=== PATIENT | female | born 1940 | race Caucasian/White ===

== ENCOUNTER 2021-02-16 06:58 | Outpatient (REF) | payer MEDICARE, SELFPAY ==
[2021-02-16 11:12] LABS: MANUAL DIFF FLAG NO
[2021-02-16 11:20] LABS: Basophils Absolute Auto 0.1 X10*3/uL (0.0-0.2); Basophils Percent Auto 0.8 % (0-2); Eosinophils Absolute Auto 0.1 X10*3/uL (0.0-0.4); Eosinophils Percent Auto 1.7 % (0-4); Hematocrit 42.1 % (37-47); Hemoglobin 13.6 g/dl (12.0-16.0); Imm Gran Abs Auto 0.03 X10*3/uL (0.00-0.03); Imm Gran Pct Auto 0.4 % (0.0-0.4); Lymphocytes Absolute Auto 1.9 X10*3/uL (1.2-4.9); Mean Corpuscular HGB Conc 32.3 g/dl (31.0-35.0); Mean Corpuscular Hemoglobin 29.2 pg (27.0-33.0); Mean Corpuscular Volume 90.3 fL (80-98); Monocytes Absolute Auto 0.7 X10*3/uL (0.1-1.2); Monocytes Percent Auto 8.4 % (2-11); Neutrophils Absolute Auto 5.6 X10*3/uL (2.0-8.3); Neutrophils Percent Auto 66.7 % (45-73); Platelet Count 401 X10*3/uL (160-400); Red Blood Count 4.66 X10*6/uL (4.20-5.50); White Blood Count 8.4 X10*3/uL (4.8-10.8)
[2021-02-16 12:01] LABS: Alanine Aminotransferase 12 U/L (0-31); Albumin Level 4.3 g/dL (3.5-5.0); Alkaline Phosphatase 90 U/L (39-117); Anion Gap 13 (12-20); Aspartate Amino Transferase 25 U/L (5-31); Bilirubin Total 0.5 mg/dL (0.0-1.0); Blood Urea Nitrogen 13 mg/dL (9-16); Calcium 9.9 mg/dL (8.4-10.2); Carbon Dioxide 28 mmol/L (22-29); Chloride 104 mmol/L (96-108); Cholesterol 225 mg/dL; Estimated Glomerular Filt Rate > 60; Glucose Random 88 mg/dL (60-115); HDL Cholesterol 83 mg/dL; LDL Cholesterol Calculated 125 mg/dl; Potassium 4.4 mmol/L (3.3-5.1); Sodium 141 mmol/L (135-145); Total Protein 6.8 g/dL (6.5-8.0); Triglycerides 85 mg/dL
[2021-02-16 12:23] LABS: Free T4 (Free Thyroxine) 0.98 ng/dL (0.71-1.85); Thyroid Stimulating Hormone 2.82 uIU/mL (0.32-4.0)
[2021-02-16 13:18] LABS: Folate > 20.0 ng/mL (> or = 4.0); Vitamin B12 930 pg/mL (200-900)
== END 2021-02-16 06:59 | disposition home or self-care (01) ==
LOC: HO.HMGCLDS 06:58
PROVIDERS: PCP Internal Medicine; Visit Provider Internal Medicine
DX: I10 Essential (primary) hypertension (principal); E78.00 Pure hypercholesterolemia, unspecified
CPT/HCPCS: 36415; 80053; 80061; 82306; 82607; 82746; 84439; 84443; 85025

== ENCOUNTER 2021-03-18 11:25 | Outpatient (REF) | payer MEDICARE, SELFPAY ==
--- NOTE | ~2021-03-18 | XR_ITS ---
EXAMINATION: XR FEMUR, LEFT CLINICAL INFORMATION: Other specified disorders of bone density COMPARISON: None TECHNIQUE: AP and lateral views of the left femur were obtained. FINDINGS: No displaced fracture. Moderate cartilage space loss in the left hip. Vascular calcifications. XR/XR femur LT 2V IMPRESSION: No fracture. Moderate degenerative change in the left hip. Vascular calcifications.
--- NOTE | ~2021-03-18 | XR_ITS ---
EXAMINATION: XR KNEE, LEFT CLINICAL INFORMATION: Other specified disorders of bone density. COMPARISON: None TECHNIQUE: Two views of the left knee. FINDINGS: No fracture or dislocation. Alignment is normal. There is mild cartilage space loss in the medial compartment. No joint effusion. Vascular calcifications. XR/XR knee LT 2V IMPRESSION: Mild degenerative change in the medial compartment.
== END 2021-03-18 11:26 | disposition home or self-care (01) ==
LOC: HO.XRAY 11:25
PROVIDERS: PCP Internal Medicine; Visit Provider Internal Medicine
DX: M79.652 Pain in left thigh (principal); M85.80 Other specified disorders of bone density and structure, unspecified site
CPT/HCPCS: 73552; 73560

== ENCOUNTER 2021-03-26 10:24 | Outpatient (REF) | payer MEDICARE, SELFPAY ==
--- NOTE | ~2021-03-26 | MM_ITS ---
EXAMINATION: BONE DENSITOMETRY CLINICAL INDICATION: Other specified disorders of bone density and structure. COMPARISON: Baseline BD dated 08/04/2016. TECHNIQUE: Using a [employer] DXA System (software version: 13.1) manufactured by [employer], dual-energy x-ray absorptiometry was performed of the lumbar spine and left hip. The images are of good technical quality. Summary results are attached. FINDINGS: AP SPINE L1-L4: Current: BMD 1.165 g/cm2, Z-score 1.7, T-score -0.1, normal, 3.5% decrease from baseline (<5% change is not significant). Baseline: BMD 1.207 g/cm2. LEFT FEMUR, NECK: Current: BMD 0.817 g/cm2, Z-score 0.6, T-score -1.6, osteopenia. Baseline: BMD 0.831 g/cm2. LEFT FEMUR, TOTAL: Current: BMD 0.905 g/cm2, Z-score 1.2, T-score -0.8, normal, 7.8% decrease from baseline (<5% change is not significant). Baseline: BMD 0.982 g/cm2. IDENTIFIED RISK FACTORS: Height loss, low calcium intake, family history (parental hip fracture), thiazide, menopause. HISTORY OF FRACTURE: None listed. MEDICATIONS: Calcium supplements or multivitamin, vitamin D. MM/XR DEXA axial skeleton IMPRESSION: 1. DIAGNOSIS: Osteopenia based on the lowest T-score value of -1.6 in the femoral neck applying World Health Organization criteria. 2. 10-YEAR FRACTURE RISK PREDICTION, FRAX: Major osteoporotic fracture (clinical spine, forearm, hip or shoulder) 24.6%. Hip fracture 14.2%. 3. Treatment Recommendations: NOF guidelines recommend consideration for treatment in postmenopausal women and men age 50 and older presenting with the following: -A hip or vertebral (clinical or morphometric) fracture. -T-score less than or equal to -2.5 at the femoral neck or spine after appropriate evaluation to exclude secondary causes. -Low bone mass at the hip or spine and a 10-year fracture probability by FRAX of greater than or equal to 3% for hip fracture or greater than or equal to 20% for major osteoporotic fracture based on the [place] adapted WHO algorithm. 4. Other Recommendations: All treatment decisions require clinical judgment and consideration of individual patient factors, including patient preferences, comorbidities, previous drug use, risk factors not captured in the FRAX model (e.g. frailty, falls, vitamin D deficiency, increased bone turnover, interval significant decline in bone density) and possible under or overestimation of fracture risk by FRAX. Additional medical evaluation for secondary cause of low bone mineral density may be appropriate. FUTURE SCAN RECOMMENDATION: People with diagnosed cases of osteoporosis or at high risk for fracture should have regular bone mineral density tests. For patients eligible for Medicare, routine testing is allowed once every 2 years. The testing frequency can be increased to one year for patients who have rapidly progressing disease, those who are receiving or discontinuing medical therapy to restore bone mass, or have additional risk factors.
== END 2021-03-26 10:25 | disposition home or self-care (01) ==
LOC: HO.MAMMO 10:24
PROVIDERS: PCP Internal Medicine; Visit Provider Internal Medicine
DX: Z13.820 Encounter for screening for osteoporosis (principal); M85.80 Other specified disorders of bone density and structure, unspecified site; Z78.0 Asymptomatic menopausal state; Z79.899 Other long term (current) drug therapy
CPT/HCPCS: 77080

== ENCOUNTER 2021-03-29 09:39 | Outpatient (REF) | payer MEDICARE, SELFPAY ==
[2021-03-29 11:25] LABS: Glucose Urine UA NEG (NEG); Leukocyte Esterase Urine 3+ (NEG); Nitrite Urine POS (NEG); UACC Culture Trigger YES; Urine Blood TRACE (NEG); Urine Ketones NEG (NEG); Urine Protein TRACE MG/DL (NEG-TRACE)
[2021-03-29 11:27] LABS: Appearance Urine CLOUDY; Color Urine YELLOW
[2021-03-29 11:55] LABS: Bacteria Urine 2+ /LPF; Squamous Epithelial Cell Urine 2+ /LPF; WBC Urine TNTC /HPF (0-4)
== END 2021-03-29 09:40 | disposition home or self-care (01) ==
LOC: HO.HMGCLDS 09:39
PROVIDERS: PCP Internal Medicine; Visit Provider Internal Medicine
DX: R30.0 Dysuria (principal)
CPT/HCPCS: 81001; 81003; 87086; 87088; 87186

== ENCOUNTER 2021-10-16 15:19 | Emergency (ER) | payer MEDICARE, SELFPAY ==
--- NOTE | ~2021-10-16 | XR_ITS ---
EXAMINATION: XR CHEST CLINICAL INFORMATION: Shortness of breath COMPARISON: April 03, 2018 TECHNIQUE: AP portable view of the chest was obtained. FINDINGS: There is interstitial prominence present at the lung bases bilaterally with curly B lines being seen. No significant perihilar disease is noted. There is question of a small left pleural effusion. No definite redistribution of vasculature to the upper lobes appreciated. No pneumothorax. Heart normal size. XR/XR chest 1V IMPRESSION: Bilateral lung base interstitial disease. Finding could be related to resolving pulmonary edema however infectious etiology would also be included in diagnosis. Infectious etiology could also be considered.
[2021-10-16 15:53] VITALS: BP 134/81; PULSE 132; RESP 19; TEMP 37.2; O2SAT 96; BMI 25.7
--- NOTE | 2021-10-16 16:15 | ECG_ITS ---
Test Reason : CHEST PAIN Blood Pressure : / mmHG Vent. Rate : 131 BPM Atrial Rate : 131 BPM P-R Int : 144 ms QRS Dur : 080 ms QT Int : 302 ms P-R-T Axes : 079 001 121 degrees QTc Int : 445 ms Sinus tachycardia Septal infarct , new Inferior infarct , possibly acute ACUTE TN / STEMI Consider right ventricular involvement in acute inferior infarct Abnormal ECG When compared with ECG of 13-JUN-2018 14:09, Premature ventricular complexes are no longer Present Vent. rate has increased BY 47 BPM Acute Septal infarct is now Present Inferior infarct is now Present Referred By: Cyrus Mejia Electronically Signed By:KRISTINE HICKEY
--- NOTE | 2021-10-16 16:36 | ED.GENADULT ---
HPI - General Adult General Chief complaint: General Medical Stated complaint: SOB Time Seen by Provider: 10/16/21 16:14 Source: patient Mode of arrival: ambulatory Limitations: no limitations History of Present Illness HPI narrative: 81 years old female came in for evaluation of shortness of breath. SOB started 3-4 days ago, described as constant, moderate in severity, shortness of breath triggered with any minimal exertion, nothing completely relieve the symptoms but it gets better with rest, patient declined chest pain, complain of bilateral lower extremities swelling, declined any recent travel, no prolonged expiration, no orthopnea or paroxysmal nocturnal dyspnea, patient declined fever or chills, patient is vaccinated with 3 doses of COVID vaccination. No sick contact. Never had similar symptoms in the past. No lower extremity swelling or tenderness. Past medical history is significant for hypertension primary doctor just decreased dose of blood pressure medication. Past medical history is significant for hypertension, hypercholesterolemia, and osteopenia. Patient was released recently treated by PCP for anxiety/grief after she lost her sister recently. Related Data Home Medications Medication Instructions Recorded Confirmed cholecalciferol (vitamin D3) 10 10 mcg PO DAILY 09/08/20 06/21/21 mcg (400 unit) capsule fexofenadine 180 mg tablet 180 mg PO DAILY 09/08/20 06/21/21 (Bianca Allergy) flaxseed ea PO 09/08/20 06/21/21 glucosamine HCl 750 mg tablet 750 mg PO DAILY 09/08/20 06/21/21 magnesium 100 mg tablet mg PO 09/08/20 06/21/21 multivitamin 1 tab PO DAILY 09/08/20 06/21/21 Previous Rx's Medication Instructions Recorded hydrochlorothiazide 12.5 mg capsule 12.5 mg PO DAILY #90 cap 05/31/21 amlodipine 2.5 mg tablet 2.5 mg PO DAILY #90 cap 07/27/21 fluticasone propionate 50 2 spray INTRANASAL DAILY #16 g 08/16/21 mcg/actuation nasal spray,suspension (Allergy Relief (fluticasone)) ezetimibe 10 mg tablet 10 mg PO DAILY #90 tab 09/21/21 alprazolam 0.25 mg tablet 0.25 mg PO DAILY PRN 30 Days #14 09/28/21 tab hydrocortisone 2.5 % topical cream 1 appl NH BID-QID PRN #30 g 09/28/21 with perineal applicator (Proctosol HC) Allergies Allergy/AdvReac Type Severity Reaction Status Date / Time atorvastatin [Lipitor] Allergy Unknown Unknown Verified 09/28/21 09:46 lovastatin Allergy Unknown Unknown Verified 09/28/21 09:46 pneumococcal vaccine Allergy Unknown Unknown Verified 09/28/21 09:46 pravastatin Allergy Unknown Unknown Verified 09/28/21 09:46 rosuvastatin [Crestor] Allergy Unknown Unknown Verified 09/28/21 09:46 simvastatin Allergy Unknown unknown Verified 09/28/21 09:46 sertraline AdvReac Intermediate sweaty Verified 10/06/21 14:59 Review of Systems Review of Systems: All other systems are reviewed and are negative Constitutional: Reports as per HPI and Reports no additional constitutional complaints Eyes: Reports as per HPI and Reports no additional eye complaints Reports system reviewed and no additional complaints, except as documented Cardiovascular: Reports as per HPI and Reports no additional cardiovascular complaints Respiratory: Reports as per HPI and Reports no additional respiratory complaints Gastrointestinal: Reports as per HPI and Reports no additional gastrointestinal complaints Genitourinary: Reports no additional female genitourinary complaints Musculoskeletal: Reports no additional musculoskeletal complaints Skin/Breast: Reports system reviewed and no additional complaints, except as docu Psychiatric: Reports no additional psychiatric complaints Endocrine: Reports no additional endocrine complaints Hematologic/Lymphatic: Reports no additional hematologic/lymphatic complaints Allergic/Immunologic: Reports no additional allergic/immunologic complaints Reports system reviewed and no additional complaints, except as documented and Reports Abnormal speech present [facility] Past Medical History Medical History Diverticulosis Hemorrhoids Hypercholesterolemia Hypertension Overweight (BMI 25.0-29.9) Thyroid nodule Surgical History History of cataract surgery History of colonoscopy History of surgery Family History Family History Father Hypertension Stroke CVD (cardiovascular disease) Mother Hypertension Stroke Social History Social History [facility]: [facility] [place] Alcohol intake: current Alcohol intake frequency: a few times a week Alcohol type: wine Patient Tobacco Use Status: Former Tobacco user e-Cigarette/Vaping Use: Never Used Second Hand Smoke Exposure: No Use of substances other than those prescribed or required for medical reasons: No Advance Directives: No Advance Directives Information Provided: No service: No Current occupational status: retired Physical Exam Vital Signs: Vital Signs: Last Vital Signs Temp 99 F 10/16/21 15:53 Pulse 136 H 10/16/21 17:21 Resp 25 H 10/16/21 17:21 BP 173/80 H 10/16/21 17:21 Pulse Ox 98 10/16/21 17:21 BMI result Body Mass Index 29.4 Vital signs have been reviewed as appeared to be correct. Blood pressure normal. Heart rate elevated. Respiration rate normal. Temperature normal. Oxygen saturation normal. Appearance: Alert. Oriented X3. No acute distress. Head: Normal external exam. Normocephalic. Atraumatic. No Moyer signs noted. No raccoon eyes noted Eyes: PERRLA. EOMI. Conjunctiva and sclera normal. Eyelids normal. ENT: TM's Normal. Pharynx normal. Uvula midline. Moist mucous membranes. No trismus noted. No drooling noted. No muffled voice noted. Neck: Normal inspection. Neck supple. FROM. No adenopathy. Thyroid Normal. No meningeal signs. No neck mass noted. CVS: Normal heart rate and rhythm. Heart sound normal. No murmurs noted. Pulses normal throughout. Respiratory: No respiratory distress. Painless inspiration. Breath sounds normal. Bilateral basilar rales, no wheezings. Abdomen: Soft and nontender. Bowel sounds normal in all 4 quadrants. No distention noted. No organomegaly noted. No visible injury noted. Back: No CVA tenderness. Full range of motion noted. Skin: Skin warm and dry. Normal skin color. Normal skin turgor. No rashes/lesions/lacerations noted. Extremities: +2 lower extremity edema. Extremities exhibit normal range of motion. Extremities nontender. Neuro: Oriented X 3. Cranial nerve exam: II-XII are grossly intact No motor deficit. No sensory deficit. Reflexes normal. Course Course Course Narrative: Assessment and plan. 81-year-old female came in for evaluation of shortness of breath for 3-4 days, patient declined chest pain. EKG revealed acute MRI with Q-wave, the EKG was reviewed with Dr. Jazmin Morales shore working supervisor at [facility] who reviewed the EKG thing that the patient had an acute [place] 3-4 days ago with Q-wave and now she is presenting with early CHF. Recommended to transfer the patient to CCU at [facility] start heparin, aspirin, and Lasix. And recommended no Brilinta, no Plavix, no beta-rubén. And patient will be transferred to CCU at [facility]. Reevaluation(s) Reevaluation #1: EMS at the bedside to transfer to CCU at [facility], patient is not going to cardiac catheterization as per Dr. Wu, will be evaluated 1st at CCU. Time: 17:42 Medical Decision Making Medical Records Medical records reviewed: Yes I reviewed the patient's medical records. Lab Data Lab results reviewed: Yes I reviewed the patient's lab results. Result diagrams: 10/16/21 16:57 10/16/21 16:56 Labs: Lab Results 10/16/21 10/16/21 10/16/21 Range/Units 16:55 16:55 16:56 WBC (4.8-10.8) X10*3/uL RBC (4.20-5.50) X10*6/uL Hgb (12.0-16.0) g/dl Hct (37.0-47.0) % MCV (80.0-98.0) fL MCH (27.0-33.0) pg MCHC (31.0-35.0) g/dl RDW (11.0-16.0) % Plt Count (160-400) X10*3/uL MPV (9.4-12.3) fL Immature Gran % (Auto) (0.0-0.4) % Neut % (Auto) (45-73) % Lymph % (Auto) (20-40) % [place] % (Auto) (2-11) % Eos % (Auto) (0-4) % Baso % (Auto) (0-2) % Lymph # (Auto) (1.2-4.9) X10*3/uL [place] # (Auto) (0.1-1.2) X10*3/uL Eos # (Auto) (0.0-0.4) X10*3/uL Baso # (Auto) (0.0-0.2) X10*3/uL Abs Immat Gran (auto) (0.00-0.03) X10*3/uL Absolute Neuts (auto) (2.0-8.3) x10*3/uL Absolute Nucleated RBC (0.0-0.012) X10*3/uL Nucleated RBC % (auto) (0.0-0.2) /100WBC PT 17.7 H (9.9-13.0) SEC INR 1.5 H (0.9-1.1) APTT 28.8 (24.1-38.0) SEC D-Dimer High Sensitivty 647 NG/ML Sodium 133 L (135-145) mmol/L Potassium 4.9 (3.3-5.1) mmol/L Chloride 100 (96-108) mmol/L Carbon Dioxide 22 (22-29) mmol/L Anion Gap 16 (12-20) BUN 14 (9-16) mg/dL Creatinine 0.72 (0.5-1.4) mg/dL Estim Creat Clear Calc 58.2 Estimated GFR > 60 Random Glucose 138 H (60-115) mg/dL Lactic Acid (0.5-2.0) mmol/L Calcium 9.6 (8.4-10.2) mg/dL Total Bilirubin 0.6 (0.0-1.0) mg/dL Direct Bilirubin 0.3 (0.0-0.5) mg/dL AST 161 H (5-31) U/L ALT 244 H (0-31) U/L Alkaline Phosphatase 227 H D (39-117) U/L Troponin I High Sens 3114.1 H* (<3.5-17.0) ng/L B-Natriuretic Peptide 2130 H (<100) pg/mL Total Protein 6.4 L (6.5-8.0) g/dL Albumin 3.9 (3.5-5.0) g/dL Lipase 16 (8-78) U/L COVID-19 ([facility]) (Negative) COVID-19 Clin Com Influenza Type A (PCR) (Negative) Influenza Type B (PCR) (Negative) RSV RNA Qual (PCR) (Negative) SARS-CoV-2 RNA (RT-PCR) (Negative) 10/16/21 10/16/21 10/16/21 Range/Units 16:56 16:57 16:58 WBC 15.6 H (4.8-10.8) X10*3/uL RBC 3.83 L (4.20-5.50) X10*6/uL Hgb 11.4 L (12.0-16.0) g/dl Hct 34.8 L (37.0-47.0) % MCV 90.9 (80.0-98.0) fL MCH 29.8 (27.0-33.0) pg MCHC 32.8 (31.0-35.0) g/dl RDW 13.5 (11.0-16.0) % Plt Count 522 H (160-400) X10*3/uL MPV 10.0 (9.4-12.3) fL Immature Gran % (Auto) 0.6 H (0.0-0.4) % Neut % (Auto) 87.1 H (45-73) % Lymph % (Auto) 5.2 L (20-40) % [place] % (Auto) 6.9 (2-11) % Eos % (Auto) 0.0 (0-4) % Baso % (Auto) 0.2 (0-2) % Lymph # (Auto) 0.8 L (1.2-4.9) X10*3/uL [place] # (Auto) 1.1 (0.1-1.2) X10*3/uL Eos # (Auto) 0.0 (0.0-0.4) X10*3/uL Baso # (Auto) 0.0 (0.0-0.2) X10*3/uL Abs Immat Gran (auto) 0.09 H (0.00-0.03) X10*3/uL Absolute Neuts (auto) 13.6 H (2.0-8.3) x10*3/uL Absolute Nucleated RBC 0.000 (0.0-0.012) X10*3/uL Nucleated RBC % (auto) 0.0 (0.0-0.2) /100WBC PT (9.9-13.0) SEC INR (0.9-1.1) APTT (24.1-38.0) SEC D-Dimer High Sensitivty NG/ML Sodium (135-145) mmol/L Potassium (3.3-5.1) mmol/L Chloride (96-108) mmol/L Carbon Dioxide (22-29) mmol/L Anion Gap (12-20) BUN (9-16) mg/dL Creatinine (0.5-1.4) mg/dL Estim Creat Clear Calc Estimated GFR Random Glucose (60-115) mg/dL Lactic Acid 1.6 (0.5-2.0) mmol/L Calcium (8.4-10.2) mg/dL Total Bilirubin (0.0-1.0) mg/dL Direct Bilirubin (0.0-0.5) mg/dL AST (5-31) U/L ALT (0-31) U/L Alkaline Phosphatase (39-117) U/L Troponin I High Sens (<3.5-17.0) ng/L B-Natriuretic Peptide (<100) pg/mL Total Protein (6.5-8.0) g/dL Albumin (3.5-5.0) g/dL Lipase (8-78) U/L COVID-19 ([facility]) (Negative) COVID-19 Clin Com Influenza Type A (PCR) NEGATIVE (Negative) Influenza Type B (PCR) NEGATIVE (Negative) RSV RNA Qual (PCR) NEGATIVE (Negative) SARS-CoV-2 RNA (RT-PCR) NEGATIVE (Negative) 10/16/21 Range/Units 17:00 WBC (4.8-10.8) X10*3/uL RBC (4.20-5.50) X10*6/uL Hgb (12.0-16.0) g/dl Hct (37.0-47.0) % MCV (80.0-98.0) fL MCH (27.0-33.0) pg MCHC (31.0-35.0) g/dl RDW (11.0-16.0) % Plt Count (160-400) X10*3/uL MPV (9.4-12.3) fL Immature Gran % (Auto) (0.0-0.4) % Neut % (Auto) (45-73) % Lymph % (Auto) (20-40) % [place] % (Auto) (2-11) % Eos % (Auto) (0-4) % Baso % (Auto) (0-2) % Lymph # (Auto) (1.2-4.9) X10*3/uL [place] # (Auto) (0.1-1.2) X10*3/uL Eos # (Auto) (0.0-0.4) X10*3/uL Baso # (Auto) (0.0-0.2) X10*3/uL Abs Immat Gran (auto) (0.00-0.03) X10*3/uL Absolute Neuts (auto) (2.0-8.3) x10*3/uL Absolute Nucleated RBC (0.0-0.012) X10*3/uL Nucleated RBC % (auto) (0.0-0.2) /100WBC PT (9.9-13.0) SEC INR (0.9-1.1) APTT (24.1-38.0) SEC D-Dimer High Sensitivty NG/ML Sodium (135-145) mmol/L Potassium (3.3-5.1) mmol/L Chloride (96-108) mmol/L Carbon Dioxide (22-29) mmol/L Anion Gap (12-20) BUN (9-16) mg/dL Creatinine (0.5-1.4) mg/dL Estim Creat Clear Calc Estimated GFR Random Glucose (60-115) mg/dL Lactic Acid (0.5-2.0) mmol/L Calcium (8.4-10.2) mg/dL Total Bilirubin (0.0-1.0) mg/dL Direct Bilirubin (0.0-0.5) mg/dL AST (5-31) U/L ALT (0-31) U/L Alkaline Phosphatase (39-117) U/L Troponin I High Sens (<3.5-17.0) ng/L B-Natriuretic Peptide (<100) pg/mL Total Protein (6.5-8.0) g/dL Albumin (3.5-5.0) g/dL Lipase (8-78) U/L COVID-19 ([facility]) Negative (Negative) COVID-19 Clin Com See Note Influenza Type A (PCR) (Negative) Influenza Type B (PCR) (Negative) RSV RNA Qual (PCR) (Negative) SARS-CoV-2 RNA (RT-PCR) (Negative) Imaging Data Chest x-ray: Radiologist's impression: Bilateral lung base interstitial disease. Finding could be related to resolving pulmonary edema however infectious etiology would also be included in diagnosis. Infectious etiology could also be considered. ? ECG Data Attestation: I personally reviewed and interpreted this ECG as follows: Interpretation: Sinus tachycardia at 131 beats per minute, normal intervals, [address]-elevation in leadIII, aVF, Q-wave in lead III,aVF with reciprocal ST depression in V3 and V4, V5. Critical Care Time Critical Care Time Critical Care Time: Yes Total Critical Care Time: 60 Attestation: I spent 60 minutes providing critical care service to the patient, this including time spent at the bedside to evaluate the patient, reassess the patient, monitoring vital signs, review labs, and radiographic studies, counseling the patient/family, discussing the case with consultants, disposition the patient. Discharge Plan Discharge Clinical Impression: Acute myocardial infarction, Acute congestive heart failure Patient Disposition: [facility] Transfer Details: CCU at [facility] Prescriptions: No Action hydrochlorothiazide 12.5 mg capsule 12.5 mg PO DAILY Qty: 90 RF: 3 amlodipine 2.5 mg tablet 2.5 mg PO DAILY Qty: 90 RF: 2 fluticasone propionate [Allergy Relief (fluticasone)] 50 mcg/actuation spray,suspension 2 spray intranasal DAILY Qty: 16 RF: 5 ezetimibe 10 mg tablet 10 mg PO DAILY Qty: 90 RF: 3 glucosamine HCl 750 mg tablet 750 mg PO DAILY RF: 0 cholecalciferol (vitamin D3) 10 mcg (400 unit) capsule 10 mcg PO DAILY RF: 0 flaxseed Powder PO RF: 0 multivitamin Tablet 1 tab PO DAILY RF: 0 magnesium 100 mg tablet PO RF: 0 fexofenadine [Bianca Allergy] 180 mg tablet 180 mg PO DAILY RF: 0 alprazolam 0.25 mg tablet 0.25 mg PO DAILY PRN (Reason: anxiety) 30 Days Qty: 14 RF: 0 hydrocortisone [Proctosol HC] 2.5 % cream with perineal applicator 1 appl NH BID-QID PRN (Reason: hemorrhoids) Qty: 30 RF: 1
[2021-10-16 16:58] VITALS: PULSE 134; RESP 30
[2021-10-16] MEDS: Aspirin Enteric Coated 81 MG TABLET.DR PO (17:03)
[2021-10-16 17:05] LABS: MANUAL DIFF FLAG NO
[2021-10-16] MEDS: Furosemide 40 MG/4 ML VIAL IVPUSH (17:05)
[2021-10-16 17:08] LABS: Basophils Percent Auto 0.2 % (0-2); Hematocrit 34.8 % (37.0-47.0); Hemoglobin 11.4 g/dl (12.0-16.0); Imm Gran Abs Auto 0.09 X10*3/uL (0.00-0.03); Imm Gran Pct Auto 0.6 % (0.0-0.4); Lymphocytes Absolute Auto 0.8 X10*3/uL (1.2-4.9); Lymphocytes Percent Auto 5.2 % (20-40); Mean Corpuscular HGB Conc 32.8 g/dl (31.0-35.0); Mean Corpuscular Hemoglobin 29.8 pg (27.0-33.0); Mean Corpuscular Volume 90.9 fL (80.0-98.0); Monocytes Absolute Auto 1.1 X10*3/uL (0.1-1.2); Monocytes Percent Auto 6.9 % (2-11); Neutrophils Absolute Auto 13.6 x10*3/uL (2.0-8.3); Neutrophils Percent Auto 87.1 % (45-73); Platelet Count 522 X10*3/uL (160-400); Red Blood Count 3.83 X10*6/uL (4.20-5.50); Red Cell Distribution Width 13.5 % (11.0-16.0); White Blood Count 15.6 X10*3/uL (4.8-10.8)
[2021-10-16] MEDS: Heparin Sodium,Porcine 5,000 UNIT/ML VIAL 3800 UNIT IVPUSH (17:11)
[2021-10-16 17:12] VITALS: BMI 29.4
[2021-10-16 17:15] LABS: INTERNATIONAL NORM RATIO 1.5 (0.9-1.1); Prothrombin Time 17.7 SEC (9.9-13.0)
[2021-10-16 17:17] LABS: D Dimer High Sensitivity 647 NG/ML; Partial Thromboplastin Time 28.8 SEC (24.1-38.0)
[2021-10-16 17:20] LABS: Lactic Acid 1.6 mmol/L (0.5-2.0)
[2021-10-16] MEDS: Heparin Sodium,Porcine/1/2NS 25,000 UNIT/250 ML IV.SOLN 8.76 UNIT IVCONT (17:20)
[2021-10-16 17:21] VITALS: BP 173/80; PULSE 136; RESP 25; O2SAT 98
[2021-10-16 17:21] LABS: COVID-19 Test Negative (Negative)
[2021-10-16 17:30] LABS: Alanine Aminotransferase 244 U/L (0-31); Albumin Level 3.9 g/dL (3.5-5.0); Alkaline Phosphatase 227 U/L (39-117); Anion Gap 16 (12-20); Aspartate Amino Transferase 161 U/L (5-31); Bilirubin Direct 0.3 mg/dL (0.0-0.5); Bilirubin Total 0.6 mg/dL (0.0-1.0); Blood Urea Nitrogen 14 mg/dL (9-16); Calcium 9.6 mg/dL (8.4-10.2); Carbon Dioxide 22 mmol/L (22-29); Chloride 100 mmol/L (96-108); Creatinine Clr Calc Pharmacy 58.2; Estimated Glomerular Filt Rate > 60; Glucose Random 138 mg/dL (60-115); Lipase 16 U/L (8-78); Potassium 4.9 mmol/L (3.3-5.1); Sodium 133 mmol/L (135-145); Total Protein 6.4 g/dL (6.5-8.0)
[2021-10-16 17:32] LABS: B Type Natriuretic Peptide 2130 pg/mL (<100)
[2021-10-16 17:45] LABS: Influenza A PCR NEGATIVE (Negative); Influenza B PCR NEGATIVE (Negative); Resp Syncy Virus RNA Qual PCR NEGATIVE (Negative); SARS COV2 PCR INHOUSE NEGATIVE (Negative)
--- NOTE | 2021-10-16 18:02 | PC.NURSE ---
ems arrival at 1740- pt loaded on stretcher and heading out of facility at 1750
== END 2021-10-16 17:50 | disposition short-term general hospital (02) ==
PROVIDERS: Emergency Provider Emergency Medicine; PCP Internal Medicine
DX: I21.9 Acute myocardial infarction, unspecified (principal); I11.0 Hypertensive heart disease with heart failure; I50.9 Heart failure, unspecified; Z20.822 Contact with and (suspected) exposure to COVID-19
CPT/HCPCS: 0241U; 36415; 71045; 80048; 80076; 83605; 83690; 83880; 84484; 85025; 85379; 85610; 85730; 87040; 87635; 93005; 96374; 96375; 99285; 99291; J1940

== ENCOUNTER → 2021-11-11 12:32 | Outpatient (BNVA) | payer MEDICARE, SELFPAY | PROVIDERS: PCP Internal Medicine; Referring Provider Internal Medicine; Visit Provider Internal Medicine | DX: I25.10 Atherosclerotic heart disease of native coronary artery without angina pectoris (principal); I25.5 Ischemic cardiomyopathy; I48.0 Paroxysmal atrial fibrillation; I34.0 Nonrheumatic mitral (valve) insufficiency; R79.89 Other specified abnormal findings of blood chemistry | CPT/HCPCS: 93005; 99202 ==

== ENCOUNTER → 2021-12-06 12:47 | Outpatient (REF) | payer MEDICARE, SELFPAY ==
--- NOTE | 2021-12-06 12:50 | CA_ITS ---
Transthoracic Echocardiogram Patient (Last, First, Middle): Jocelynn Farr, Gender: Female Date of : 1940 Age: 81 Procedure Date: 12/06/2021 Procedure Type: Transthoracic Echocardiogram Location: OP Height: 157.48 cm Weight: 58.97 kg BSA: 1.59 m2 Heart Rate: bpm BP: 132 / 80 mmHg Respiratory Care Instructor: CULLEN Kebede MD: Davi Grande MD Car Packer: Kana Garcia MD Symptoms: I21.3 - ST elevation (STEMI) myocardial infarction of uns... Study Quality: Good ECG Rhythm: Sinus with extra beats Conclusions: - 1. Nili-za-xowjociv LV systolic dysfunction with regional wall motion abnormality suggestive of prior coronary artery disease and myocardial infarction with pseudonormal filling pattern 2. Mildly dilated left atrium 3. Moderate mitral regurgitation 4. Mildly elevated right ventricular systolic pressure 5. Moderate pericardial effusion Findings Left Ventricle Normal left ventricular cavity size. There is normal left ventricular wall thickness. The left ventricular systolic function is mild to moderately decreased. The visually estimated ejection fraction is between 40-45%. Spectral Doppler is indicative of a pseudonormal filling pattern. E/E prime ratio is between 8 and 15 consistent with indeterminate filling pressures. Wall Motion Rest Echo Findings The mid inferolateral segment is hypokinetic. The inferoseptal wall, inferior wall, and basal inferolateral segment are akinetic. All other scored wall segments showed normal motion. Right Ventricle Normal right ventricular cavity size and systolic function. Atria The left atrium is mildly dilated. There is no evidence of interatrial shunt. The right atrium is likely dilated. Aortic Valve There is mild calcification of the aortic valve. There is no aortic valve stenosis. There is mild aortic valve regurgitation. Mitral Valve There is mild anterior and moderate posterior mitral leaflet thickening. The posterior mitral leaflet has restricted mobility. There is mild mitral annular calcification. There is moderate mitral valve regurgitation. There is no mitral valve stenosis. Pulmonic Valve The pulmonic valve is likely normal. Tricuspid Valve Normal tricuspid valve structure. There is mild tricuspid valve regurgitation. Normal right atrial pressure. Mild pulmonary hypertension is present. Great Vessels All visible segments of the aorta are normal in size. The pulmonary artery was not well visualized. Venous The inferior vena cava is normal in size and collapses greater than 50% with inspiration. Pericardium/Pleural There is a moderate circumferential pericardial effusion. Prior Study Comparison No prior study available for comparison. Measurements 2D Linear Measurements IVSd: 1.00 0.6-0.9/0.6-1.0 cm LVIDd: 5.28 3.9-5.3/4.2-5.9 cm LVIDd Index: 3.32 2.4-3.2/2.2-3.1 cm/m2 LVIDs: 4.76 2.0-3.6 cm LVPWd: 0.87 0.7-1.1 cm Ao Root: 2.90 2.1-3.5 cm LA Diam: 3.60 2.7-3.8/3.0-4.0 cm LAIDs Index: 2.26 1.5-2.3 cm/m2 LV Mass: 227.06 67-162/88-224 g LV Mass Index: 142.81 43-95/49-115 g/m2 LVOT Diam: 2.00 3.0+(-)1.3 cm 2D Systolic Function EF 4C: 48.30 >55% EF 2C: 54.90 >55% EF BiP: 54.10 >55% Mitral Valve MV Pk E: 1.14 MV PK A: 0.91 MV Decel Time: 136.00 E/A: 1.30 E'Lateral: 7.18 E'Medial: 6.53 E/E' Med: 17.50 E/E' Lat: 15.90 PHT: 40.00 MVA PHT: 5.50 Decel Mchenry: 8.40 MR Vol - PW Dopp: 52.80 MR VTI: 1.76 MR ERO: 30.00 MR Alias Noah: 0.40 MR RAD: 0.80 Aortic Valve AoV Pk Noah: 1.13 AoV Mn Noah: 0.81 AoV VTI: 0.27 AoV Pk Grad: 5.00 Aov Mn Grad: 3.00 AFUA Cont.VTI: 2.04 LVOT LVOT Pk Noah: 0.70 LVOT Mn Noah: 0.46 LVOT VTI: 0.17 LVOT Pk Grad: 2.00 LVOT Mn Grad: 1.00 LVOT Diam: 2.00 LVOT Area: 3.14 Diastolic Function MV Pk E: 1.14 MV Pk A: 0.91 E/A: 1.30 E'Medial: 6.53 E/E' Med: 17.50 E' Laterial: 7.18 E/E' Lat: 15.90 Right Ventricle TAPSE (mm): 21.00 TVS' Noah: 11.00 Tricuspid Valve TR Pk Noah: 3.09 TR Pk Grad: 38.00 RA Press: 3.00 RVSP: 41.00 Great Vessels Aorta Ao Root-2D: 2.90 2.0-3.7 cm Ao Asc: 3.20 2.1-3.4 cm Updated in Other Vendor System with Status of Final Kana Garcia MD electronically signed on 12/06/2021 4:03:03 PM with status of Final
== END ==
LOC: HO.CARD 12:47
PROVIDERS: PCP Internal Medicine; Visit Provider Internal Medicine
DX: I21.3 ST elevation (STEMI) myocardial infarction of unspecified site (principal)
CPT/HCPCS: 93306

== ENCOUNTER → 2021-12-15 13:34 | Outpatient (BNVA) | payer MEDICARE, SELFPAY ==
[2021-12-01 13:15] VITALS: BP 128/62; BP 142/70
== END ==
PROVIDERS: PCP Internal Medicine; Referring Provider Internal Medicine; Visit Provider Internal Medicine
DX: I25.5 Ischemic cardiomyopathy (principal); I25.10 Atherosclerotic heart disease of native coronary artery without angina pectoris; I34.0 Nonrheumatic mitral (valve) insufficiency; I48.0 Paroxysmal atrial fibrillation; I10 Essential (primary) hypertension; E78.5 Hyperlipidemia, unspecified; E78.00 Pure hypercholesterolemia, unspecified; R79.89 Other specified abnormal findings of blood chemistry; Z87.891 Personal history of nicotine dependence; Z98.890 Other specified postprocedural states; Z88.7 Allergy status to serum and vaccine; Z88.8 Allergy status to other drugs, medicaments and biological substances; Z79.899 Other long term (current) drug therapy
CPT/HCPCS: 99212

== ENCOUNTER 2021-12-27 11:12 | Outpatient (REF) | payer MEDICARE, SELFPAY ==
[2021-12-01 13:15] VITALS: BP 128/62; BP 142/70
[2021-12-27 14:16] LABS: Anion Gap 12 (12-20); Blood Urea Nitrogen 18 mg/dL (9-16); Calcium 9.8 mg/dL (8.4-10.2); Carbon Dioxide 29 mmol/L (22-29); Chloride 101 mmol/L (96-108); Estimated Glomerular Filt Rate > 60; Glucose Random 94 mg/dL (60-115); Potassium 4.4 mmol/L (3.3-5.1); Sodium 138 mmol/L (135-145)
== END 2021-12-27 11:13 | disposition home or self-care (01) ==
LOC: HO.HMGCLDS 11:12
PROVIDERS: Visit Provider Internal Medicine
DX: I25.5 Ischemic cardiomyopathy (principal)
CPT/HCPCS: 36415; 80048

== ENCOUNTER 2022-02-15 07:12 | Outpatient (REF) | payer MEDICARE, SELFPAY ==
[2021-12-01 13:15] VITALS: BP 128/62; BP 142/70
[2022-01-25 08:27] VITALS: BP 104/48; BMI 24.1
[2022-02-15 11:38] LABS: MANUAL DIFF FLAG NO
[2022-02-15 11:47] LABS: Basophils Absolute Auto 0.1 X10*3/uL (0.0-0.2); Eosinophils Absolute Auto 0.1 X10*3/uL (0.0-0.4); Eosinophils Percent Auto 1.5 % (0-4); Hematocrit 36.8 % (37.0-47.0); Hemoglobin 11.6 g/dl (12.0-16.0); Imm Gran Abs Auto 0.02 X10*3/uL (0.00-0.03); Imm Gran Pct Auto 0.3 % (0.0-0.4); Immature Retic Fraction 7.6 % (3.0-15.9); Lymphocytes Absolute Auto 1.2 X10*3/uL (1.2-4.9); Lymphocytes Percent Auto 15.8 % (20-40); Mean Corpuscular HGB Conc 31.5 g/dl (31.0-35.0); Mean Corpuscular Hemoglobin 27.7 pg (27.0-33.0); Mean Corpuscular Volume 87.8 fL (80.0-98.0); Monocytes Absolute Auto 0.7 X10*3/uL (0.1-1.2); Monocytes Percent Auto 9.9 % (2-11); Neutrophils Absolute Auto 5.2 x10*3/uL (2.0-8.3); Neutrophils Percent Auto 71.5 % (45-73); Platelet Count 269 X10*3/uL (160-400); Red Blood Count 4.19 X10*6/uL (4.20-5.50); Red Cell Distribution Width 14.9 % (11.0-16.0); Retic HGB Equivalent 32.8 pg (30.0-35.0); Reticulocytes Absolute 0.041 X10*6/uL (0.026-0.095); White Blood Count 7.3 X10*3/uL (4.8-10.8)
[2022-02-15 12:07] LABS: Alanine Aminotransferase 43 U/L (0-31); Albumin Level 4.1 g/dL (3.5-5.0); Alkaline Phosphatase 85 U/L (39-117); Anion Gap 10 (12-20); Aspartate Amino Transferase 44 U/L (5-31); Bilirubin Total 0.4 mg/dL (0.0-1.0); Blood Urea Nitrogen 19 mg/dL (9-16); Calcium 9.8 mg/dL (8.4-10.2); Carbon Dioxide 31 mmol/L (22-29); Chloride 105 mmol/L (96-108); Cholesterol 126 mg/dL; Estimated Glomerular Filt Rate 58; Glucose Random 88 mg/dL (60-115); HDL Cholesterol 60 mg/dL; Iron 51 mcg/dL (30-160); LDL Cholesterol Calculated 58 mg/dl; Magnesium 2.3 mg/dL (1.6-2.6); Percent Iron Saturation 17 % (15-50); Potassium 4.2 mmol/L (3.3-5.1); Sodium 142 mmol/L (135-145); Total Iron Binding Capacity 306 mcg/dL (228-428); Total Protein 6.3 g/dL (6.5-8.0); Triglycerides 43 mg/dL; Unsaturated Iron Binding 255 ug/dL
[2022-02-15 12:11] LABS: Estimated Average Glucose 105 mg/dL; Hemoglobin A1c % 5.3 %
[2022-02-15 12:29] LABS: Ferritin 128 ng/mL (10-250); Free T4 (Free Thyroxine) 1.12 ng/dL (0.71-1.85); Thyroid Stimulating Hormone 3.16 uIU/mL (0.32-4.0); Vitamin D 25-OH Total 57.1 ng/mL (>30)
[2022-02-15 12:47] LABS: Folate > 20.0 ng/mL (> or = 4.0); Vitamin B12 734 pg/mL (200-900)
[2022-02-15 14:38] LABS: B Type Natriuretic Peptide 842 pg/mL (<100)
== END 2022-02-15 07:13 | disposition home or self-care (01) ==
LOC: HO.HMGCLDS 07:12
PROVIDERS: Visit Provider Internal Medicine
DX: E78.00 Pure hypercholesterolemia, unspecified (principal); I50.9 Heart failure, unspecified
CPT/HCPCS: 36415; 80053; 80061; 82306; 82607; 82728; 82746; 83036; 83540; 83735; 83880; 84439; 84443; 85025; 85045

== ENCOUNTER → 2022-03-09 14:20 | Outpatient (BNVA) | payer MEDICARE, SELFPAY ==
[2021-12-01 13:15] VITALS: BP 128/62; BP 142/70
[2022-03-09 14:20] VITALS: BP 106/60; BMI 23.2
== END ==
PROVIDERS: PCP Internal Medicine; Referring Provider Internal Medicine; Visit Provider Internal Medicine
DX: I25.10 Atherosclerotic heart disease of native coronary artery without angina pectoris (principal); I25.5 Ischemic cardiomyopathy; I34.0 Nonrheumatic mitral (valve) insufficiency; I48.0 Paroxysmal atrial fibrillation; R79.89 Other specified abnormal findings of blood chemistry
CPT/HCPCS: 99212

== ENCOUNTER 2022-06-06 13:16 | Outpatient (REF) | payer MEDICARE, SELFPAY ==
[2022-05-04 12:53] VITALS: BP 108/62; BP 132/70; BMI 23.3
[2022-06-06 14:33] LABS: Appearance Urine CLEAR; Color Urine YELLOW; Glucose Urine UA NEG (NEG); Leukocyte Esterase Urine NEG (Negative); Nitrite Urine NEG (NEG); Urine Blood NEG (NEG); Urine Ketones NEG (NEG); Urine Protein NEG (NEG-TRACE)
== END 2022-06-06 13:17 | disposition home or self-care (01) ==
LOC: HO.LAB 13:16
PROVIDERS: PCP Internal Medicine; Visit Provider Internal Medicine
DX: R30.0 Dysuria (principal)
CPT/HCPCS: 81003

== ENCOUNTER 2022-08-02 14:56 | Outpatient (REF) | payer MEDICARE, SELFPAY ==
[2022-05-04 12:53] VITALS: BP 108/62; BP 132/70; BMI 23.3
[2022-08-02 16:25] LABS: MANUAL DIFF FLAG NO
[2022-08-02 16:30] LABS: Basophils Absolute Auto 0.1 X10*3/uL (0.0-0.2); Basophils Percent Auto 1.1 % (0-2); Eosinophils Absolute Auto 0.1 X10*3/uL (0.0-0.4); Eosinophils Percent Auto 1.2 % (0-4); Hematocrit 35.5 % (37.0-47.0); Hemoglobin 11.7 g/dl (12.0-16.0); Imm Gran Abs Auto 0.03 X10*3/uL (0.00-0.03); Imm Gran Pct Auto 0.4 % (0.0-0.4); Immature Retic Fraction 6.2 % (3.0-15.9); Lymphocytes Absolute Auto 1.1 X10*3/uL (1.2-4.9); Lymphocytes Percent Auto 13.2 % (20-40); Mean Corpuscular Hemoglobin 28.7 pg (27.0-33.0); Mean Platelet Volume 10.9 fL (9.4-12.3); Monocytes Absolute Auto 0.8 X10*3/uL (0.1-1.2); Monocytes Percent Auto 9.4 % (2-11); Neutrophils Absolute Auto 6.1 x10*3/uL (2.0-8.3); Neutrophils Percent Auto 74.7 % (45-73); Platelet Count 323 X10*3/uL (160-400); Red Blood Count 4.08 X10*6/uL (4.20-5.50); Retic HGB Equivalent 33.7 pg (30.0-35.0); Reticulocyte Percent 1.4 % (0.5-1.8); Reticulocytes Absolute 0.058 X10*6/uL (0.026-0.095); White Blood Count 8.1 X10*3/uL (4.8-10.8)
[2022-08-02 17:29] LABS: B Type Natriuretic Peptide 897 pg/mL (<100)
[2022-08-02 17:35] LABS: Iron 48 mcg/dL (30-160); Percent Iron Saturation 14 % (15-50); Total Iron Binding Capacity 350 mcg/dL (228-428); Unsaturated Iron Binding 302 ug/dL
[2022-08-02 17:54] LABS: Ferritin 129 ng/mL (10-250)
[2022-08-02 18:15] LABS: Folate > 20.0 ng/mL (> or = 4.0); Vitamin B12 885 pg/mL (200-900)
== END 2022-08-02 14:57 | disposition home or self-care (01) ==
LOC: HO.HMGCLDS 14:56
PROVIDERS: PCP Internal Medicine; Visit Provider Internal Medicine
DX: I25.10 Atherosclerotic heart disease of native coronary artery without angina pectoris (principal); I50.9 Heart failure, unspecified
CPT/HCPCS: 36415; 82607; 82728; 82746; 83540; 83880; 85025; 85045

== ENCOUNTER → 2022-09-07 13:44 | Outpatient (BNVA) | payer MEDICARE, SELFPAY ==
[2022-05-04 12:53] VITALS: BP 108/62; BP 132/70; BMI 23.3
== END ==
PROVIDERS: PCP Internal Medicine; Referring Provider Internal Medicine; Visit Provider Internal Medicine
DX: I25.10 Atherosclerotic heart disease of native coronary artery without angina pectoris (principal); I25.5 Ischemic cardiomyopathy; I34.0 Nonrheumatic mitral (valve) insufficiency; I48.0 Paroxysmal atrial fibrillation
CPT/HCPCS: 99212

== ENCOUNTER 2022-12-12 01:20 | Inpatient (IN) | payer MEDICARE, SELFPAY ==
[2022-05-04 12:53] VITALS: BP 108/62; BP 132/70; BMI 23.3
[2022-12-12] VITALS (10 sets, daily range): BP systolic 113–168; BP diastolic 51–87; PULSE 84–133; RESP 16–28; TEMP 36.4–37.2; O2SAT 87–99; BMI 21.0
--- NOTE | 2022-12-12 | ECG_ITS ---
Test Reason : TACHYCARDIA Blood Pressure : / mmHG Vent. Rate : 131 BPM Atrial Rate : 131 BPM P-R Int : 152 ms QRS Dur : 096 ms QT Int : 308 ms P-R-T Axes : 000 012 -57 degrees QTc Int : 454 ms Sinus tachycardia Septal infarct (cited on or before 16-OCT-2021) Inferior infarct (cited on or before 16-OCT-2021) Abnormal ECG When compared with ECG of 16-OCT-2021 16:34, ST no longer elevated in Inferior leads ST less depressed in Lateral leads Referred By: William De Luna Electronically Signed By:KRISTINE HICKEY
--- NOTE | ~2022-12-12 | XR_ITS ---
EXAMINATION: XR CHEST CLINICAL INFORMATION: Dyspnea COMPARISON: None TECHNIQUE: Frontal view of the chest was obtained. FINDINGS: Cardiac leads overlie the chest. The lungs are well expanded. Diffuse interstitial prominence with Gabriela B-lines. Hazy opacities at the lung bases. No pneumothorax. The cardiomediastinal silhouette is normal in size with a calcified aorta. XR/XR chest 1V IMPRESSION: Diffuse interstitial prominence with Gabriela B-lines suggestive of interstitial edema.
--- NOTE | 2022-12-12 01:26 | ED.SOB ---
HPI - SOB/Dyspnea General Chief Complaint: Dyspnea Stated Complaint: sob,covid+ yesterday, 94%RA Time Seen by Provider: 12/12/22 01:25 Source: patient Mode of arrival: EMS Limitations: no limitations History of Present Illness HPI Narrative: Patient 82 years old with history of paroxysmal AFib, ischemic cardiomyopathy mitral valve regurgitation, anxiety been congested since yesterday did the COVID testing which came positive today patient been feeling more weak, increased shortness of breath, coughing a lot also had several loose bowels with nausea with abdominal cramping no fever no chills patient is saturating 88% at room air on arrival no fever no chest pain Related Data Home Medications Medication Instructions Recorded Confirmed cholecalciferol (vitamin D3) 10 10 mcg PO DAILY 09/08/20 09/07/22 mcg (400 unit) capsule fexofenadine 180 mg tablet 180 mg PO DAILY 09/08/20 09/07/22 (Bianca Allergy) glucosamine HCl 750 mg tablet 750 mg PO DAILY 09/08/20 09/07/22 multivitamin 1 tab PO DAILY 09/08/20 09/07/22 Previous Rx's Medication Instructions Recorded rosuvastatin 20 mg tablet (Crestor) 20 mg PO DAILY #90 tabs 02/08/22 fluticasone propionate 50 2 spray intranasal DAILY #16 grams 05/24/22 mcg/actuation nasal spray,suspension (Allergy Relief (fluticasone)) famotidine 20 mg tablet 20 mg PO BEDTIME #90 tabs 05/30/22 torsemide 20 mg tablet 20 mg PO DAILY PRN sob #90 tabs 09/05/22 ezetimibe 10 mg tablet 10 mg PO DAILY #90 tabs 10/05/22 clopidogrel 75 mg tablet 75 mg PO DAILY #90 tabs 10/11/22 metoprolol succinate 50 mg 50 mg PO DAILY #90 tabs 10/11/22 tablet,extended release 24 hr apixaban 5 mg tablet (Eliquis) 5 mg PO BID #180 tabs 11/15/22 lisinopril 2.5 mg tablet See Rx Instructions .Route 12/06/22 .COMPLEX #90 tabs Allergies Allergy/AdvReac Type Severity Reaction Status Date / Time atorvastatin [Lipitor] Allergy Unknown Unknown Verified 09/07/22 13:49 lovastatin Allergy Unknown Unknown Verified 09/07/22 13:49 pneumococcal vaccine Allergy Unknown Unknown Verified 09/07/22 13:49 pravastatin Allergy Unknown Unknown Verified 09/07/22 13:49 rosuvastatin [Crestor] Allergy Unknown Unknown Verified 09/07/22 13:49 simvastatin Allergy Unknown unknown Verified 09/07/22 13:49 sertraline AdvReac Intermediate sweaty Verified 09/07/22 13:49 Review of Systems Review of Systems: Yes all other systems are reviewed and are negative [facility] Past Medical History Medical History Diverticulosis Hemorrhoids Hypercholesterolemia Hypertension Overweight (BMI 25.0-29.9) Thyroid nodule Surgical History History of cardiac catheterization (~10/18/21) History of cataract surgery History of colonoscopy History of surgery Family History Family History Father Hypertension Stroke CVD (cardiovascular disease) Mother Hypertension Stroke Social History [facility] Alcohol intake: never Patient Tobacco Use Status: Former Tobacco user Tobacco use type: Cigarette Smoked in Last 30 Days: No e-Cigarette/Vaping Use: Never Used Second Hand Smoke Exposure: No Use of substances other than those prescribed or required for medical reasons: No Advance Directives: No Advance Directives Information Provided: Yes service: No Current occupational status: retired Cognitive needs: No Hearing needs: No Vision needs: Yes Physical Exam Vital Signs: Vital Signs: Last Vital Signs Temp 97.5 F 12/12/22 06:15 Pulse 114 H 12/12/22 06:15 Resp 22 H 12/12/22 06:15 BP 130/58 L 12/12/22 06:15 Pulse Ox 99 12/12/22 06:15 O2 Del Method 12/12/22 06:15 O2 Flow Rate 2 12/12/22 06:15 BMI result Body Mass Index 21.0 Appearance: Alert. Oriented X3. No acute distress. Eyes: PERRLA, No Nystagmus ENT: Pharynx normal. Oral Mucosa moist Neck: Normal inspection. Neck supple. CVS: Normal heart rate and rhythm. Pulses normal. Respiratory: No respiratory distress. Equal air entry bilateral, prolonged expiration with few rales Abdomen: Soft, diffuse tenderness no focal tenderness or guarding. Bowel sounds are present, no mass palpable, no CVA tenderness Skin: Skin warm and dry. Normal skin color. Normal skin turgor. Extremities: Trace lower extremity edema. No calf tenderness Neuro: Oriented X 3. No motor deficit. No sensory deficit.No cerebellar signs , cranial nerves II-XII intact Medications Administered Discontinued Medications Generic Name Dose Route Start Last Admin Trade Name Vamshiq PRN Reason Stop Dose Admin Dicyclomine HCl 20 mg 12/12/22 03:12 12/12/22 03:57 Dicyclomine Hcl 10 Mg Capsule PO 12/12/22 03:13 20 mg ONCE ONE Administration Furosemide 20 mg 12/12/22 02:35 12/12/22 02:46 Furosemide 20 Mg/2 Ml Vial IVPUSH 12/12/22 02:36 20 mg ONCE ONE Administration Protocol Loperamide HCl 2 mg 12/12/22 03:12 12/12/22 03:57 Loperamide Hcl 2 Mg Capsule PO 12/12/22 03:13 2 mg ONCE ONE Administration Medical Decision Making Medical Decision Making [facility] Narrative: Patient with acute CHF with COVID 19 positive hypoxic on ambulation pulse ox dropped to low 50s when she walks to bathroom, D-dimer negative for PE will admit patient for CHF exacerbation and COVID-19 Differential Diagnosis Differential Diagnoses: The differential diagnosis associated with the presentation includes CHF/pneumonia/COVID 19/PE Consult Healthcare Provider Management of the patient was discussed with: Hospitalist Lab Data MDM Lab Attestation statement: I reviewed the patient's lab results. 12/12/22 01:47 12/12/22 01:47 Labs: Lab Results 12/12/22 12/12/22 12/12/22 Range/Units 01:46 01:46 01:47 WBC 12.9 H (4.8-10.8) X10*3/uL RBC 4.42 (4.20-5.50) X10*6/uL Hgb 12.7 (12.0-16.0) g/dl Hct 39.3 (37.0-47.0) % MCV 88.9 (80.0-98.0) fL MCH 28.7 (27.0-33.0) pg MCHC 32.3 (31.0-35.0) g/dl RDW 14.6 (11.0-16.0) % Plt Count 264 (160-400) X10*3/uL MPV 10.7 (9.4-12.3) fL Immature Gran % (Auto) 0.3 (0.0-0.4) % Neut % (Auto) 77.7 H (45-73) % Lymph % (Auto) 13.1 L (20-40) % [place] % (Auto) 8.2 (2-11) % Eos % (Auto) 0.2 (0-4) % Baso % (Auto) 0.5 (0-2) % Lymph # (Auto) 1.7 (1.2-4.9) X10*3/uL [place] # (Auto) 1.1 (0.1-1.2) X10*3/uL Eos # (Auto) 0.0 (0.0-0.4) X10*3/uL Baso # (Auto) 0.1 (0.0-0.2) X10*3/uL Abs Immat Gran (auto) 0.04 H (0.00-0.03) X10*3/uL Absolute Neuts (auto) 10.0 H (2.0-8.3) x10*3/uL Absolute Nucleated RBC 0.000 (0.0-0.012) X10*3/uL Nucleated RBC % (auto) 0.0 (0.0-0.2) /100WBC D-Dimer High Sensitivty NG/ML Sodium (135-145) mmol/L Potassium (3.3-5.1) mmol/L Chloride (96-108) mmol/L Carbon Dioxide (22-29) mmol/L Anion Gap (12-20) BUN (9-16) mg/dL Creatinine (0.5-1.4) mg/dL Estim Creat Clear Calc Estimated GFR Random Glucose (60-115) mg/dL Lactic Acid 2.0 (0.5-2.0) mmol/L Calcium (8.4-10.2) mg/dL Troponin I High Sens 25.5 H (<3.5-17.0) ng/L B-Natriuretic Peptide (<100) pg/mL COVID-19 ([facility]) (Negative) COVID-19 Clin Com 12/12/22 12/12/22 12/12/22 Range/Units 01:47 01:47 01:47 WBC (4.8-10.8) X10*3/uL RBC (4.20-5.50) X10*6/uL Hgb (12.0-16.0) g/dl Hct (37.0-47.0) % MCV (80.0-98.0) fL MCH (27.0-33.0) pg MCHC (31.0-35.0) g/dl RDW (11.0-16.0) % Plt Count (160-400) X10*3/uL MPV (9.4-12.3) fL Immature Gran % (Auto) (0.0-0.4) % Neut % (Auto) (45-73) % Lymph % (Auto) (20-40) % [place] % (Auto) (2-11) % Eos % (Auto) (0-4) % Baso % (Auto) (0-2) % Lymph # (Auto) (1.2-4.9) X10*3/uL [place] # (Auto) (0.1-1.2) X10*3/uL Eos # (Auto) (0.0-0.4) X10*3/uL Baso # (Auto) (0.0-0.2) X10*3/uL Abs Immat Gran (auto) (0.00-0.03) X10*3/uL Absolute Neuts (auto) (2.0-8.3) x10*3/uL Absolute Nucleated RBC (0.0-0.012) X10*3/uL Nucleated RBC % (auto) (0.0-0.2) /100WBC D-Dimer High Sensitivty 212 NG/ML Sodium 132 L (135-145) mmol/L Potassium 4.2 (3.3-5.1) mmol/L Chloride 101 (96-108) mmol/L Carbon Dioxide 19 L (22-29) mmol/L Anion Gap 16 (12-20) BUN 12 (9-16) mg/dL Creatinine 0.68 (0.5-1.4) mg/dL Estim Creat Clear Calc 51.3 Estimated GFR > 60 Random Glucose 177 H (60-115) mg/dL Lactic Acid (0.5-2.0) mmol/L Calcium 8.8 D (8.4-10.2) mg/dL Troponin I High Sens (<3.5-17.0) ng/L B-Natriuretic Peptide 1557 H (<100) pg/mL COVID-19 ([facility]) (Negative) COVID-19 Clin Com 12/12/22 Range/Units 04:14 WBC (4.8-10.8) X10*3/uL RBC (4.20-5.50) X10*6/uL Hgb (12.0-16.0) g/dl Hct (37.0-47.0) % MCV (80.0-98.0) fL MCH (27.0-33.0) pg MCHC (31.0-35.0) g/dl RDW (11.0-16.0) % Plt Count (160-400) X10*3/uL MPV (9.4-12.3) fL Immature Gran % (Auto) (0.0-0.4) % Neut % (Auto) (45-73) % Lymph % (Auto) (20-40) % [place] % (Auto) (2-11) % Eos % (Auto) (0-4) % Baso % (Auto) (0-2) % Lymph # (Auto) (1.2-4.9) X10*3/uL [place] # (Auto) (0.1-1.2) X10*3/uL Eos # (Auto) (0.0-0.4) X10*3/uL Baso # (Auto) (0.0-0.2) X10*3/uL Abs Immat Gran (auto) (0.00-0.03) X10*3/uL Absolute Neuts (auto) (2.0-8.3) x10*3/uL Absolute Nucleated RBC (0.0-0.012) X10*3/uL Nucleated RBC % (auto) (0.0-0.2) /100WBC D-Dimer High Sensitivty NG/ML Sodium (135-145) mmol/L Potassium (3.3-5.1) mmol/L Chloride (96-108) mmol/L Carbon Dioxide (22-29) mmol/L Anion Gap (12-20) BUN (9-16) mg/dL Creatinine (0.5-1.4) mg/dL Estim Creat Clear Calc Estimated GFR Random Glucose (60-115) mg/dL Lactic Acid (0.5-2.0) mmol/L Calcium (8.4-10.2) mg/dL Troponin I High Sens (<3.5-17.0) ng/L B-Natriuretic Peptide (<100) pg/mL COVID-19 ([facility]) Positive A (Negative) COVID-19 Clin Com See Note Independent Interpretation I performed an independent interpretation of an: EKG Interpretation: Sinus tachycardia with heart rate 131 beats per minute poor progression of R-wave Q-waves inferior leads no acute ST changes no acute ischemia Discharge Plan Discharge Clinical Impression: Congestive heart failure, COVID-19, Acute hypoxemic respiratory failure due to COVID-19 Patient Disposition: Admitted As Inpatient
--- NOTE | 2022-12-12 01:34 | PC.NURSE ---
Pt arrived to ED reporting SOB and SpO2 at 87% on RA. Pt placed on O2 at 2 lpm via NC to improve SpO2 to 97%.
[2022-12-12 01:54] LABS: MANUAL DIFF FLAG NO
[2022-12-12 01:56] LABS: Basophils Absolute Auto 0.1 X10*3/uL (0.0-0.2); Basophils Percent Auto 0.5 % (0-2); Eosinophils Percent Auto 0.2 % (0-4); Hematocrit 39.3 % (37.0-47.0); Hemoglobin 12.7 g/dl (12.0-16.0); Imm Gran Abs Auto 0.04 X10*3/uL (0.00-0.03); Imm Gran Pct Auto 0.3 % (0.0-0.4); Lymphocytes Absolute Auto 1.7 X10*3/uL (1.2-4.9); Lymphocytes Percent Auto 13.1 % (20-40); Mean Corpuscular HGB Conc 32.3 g/dl (31.0-35.0); Mean Corpuscular Hemoglobin 28.7 pg (27.0-33.0); Mean Corpuscular Volume 88.9 fL (80.0-98.0); Mean Platelet Volume 10.7 fL (9.4-12.3); Monocytes Absolute Auto 1.1 X10*3/uL (0.1-1.2); Monocytes Percent Auto 8.2 % (2-11); Neutrophils Percent Auto 77.7 % (45-73); Platelet Count 264 X10*3/uL (160-400); Red Blood Count 4.42 X10*6/uL (4.20-5.50); Red Cell Distribution Width 14.6 % (11.0-16.0); White Blood Count 12.9 X10*3/uL (4.8-10.8)
[2022-12-12 02:05] LABS: D Dimer High Sensitivity 212 NG/ML
--- NOTE | 2022-12-12 02:09 | PC.NURSE ---
Pt removed O2 and ambulated to the bathroom while in the room by herself. This RN returned to the pt's room to find pt resting in bed with rapid respirations. Pulse ox placed on the pt to find SpO2 at 50% on RA with with increased tachycardia and tachypnea. Pt placed back on NC at 4 lpm to quickly return SpO2 to >95%. O2 lowered to 2 lpm and pt able to maintain SpO2 >95%. Pt is now resting in bed comfortably and denies SOB. RT present to assess pt at this time.
[2022-12-12 02:11] LABS: Anion Gap 16 (12-20); Blood Urea Nitrogen 12 mg/dL (9-16); Calcium 8.8 mg/dL (8.4-10.2); Carbon Dioxide 19 mmol/L (22-29); Chloride 101 mmol/L (96-108); Creatinine Clr Calc Pharmacy 51.3; Estimated Glomerular Filt Rate > 60; Glucose Random 177 mg/dL (60-115); Potassium 4.2 mmol/L (3.3-5.1); Sodium 132 mmol/L (135-145)
[2022-12-12 02:19] LABS: Troponin-I High Sensitivity 25.5 ng/L (<3.5-17.0)
[2022-12-12 02:23] LABS: B Type Natriuretic Peptide 1557 pg/mL (<100)
[2022-12-12] MEDS: Furosemide 20 MG/2 ML VIAL IVPUSH (02:46)
[2022-12-12] MEDS: Loperamide HCl 2 MG CAPSULE PO (03:57)
[2022-12-12] MEDS: Dicyclomine HCl 10 MG CAPSULE 20 MG PO (03:57)
--- NOTE | 2022-12-12 04:25 | PM.IMHP ---
History of Present Illness Date of Service: 12/12/22 Chief Complaint: Dyspnea This is a 82-year-old female with pertinent history of paroxysmal atrial fibrillation on Eliquis, mixed hyperlipidemia, essential hypertension, congestive heart failure with reduced ejection fraction, gastroesophageal reflux disease, coronary artery disease with ischemic cardiomyopathy who presents to the emergency department for evaluation of dyspnea. Patient states she started having watering of eyes, nasal congestion and dyspnea, worse with exertion 1 day prior to presentation. She tested positive for COVID-19 infection yesterday. Patient states her dyspnea has gotten worse over the last 24 hours and hence she decided to present to the ER for further evaluation. Patient states her is also positive for COVID-19. Patient endorses orthopnea and PND. Patient admits dry cough. No fever, chills. She denies chest discomfort, palpitations, abdominal pain, changes in urinary or bowel habits. In the emergency department, imaging with interstitial pulmonary edema. BNP was found to be elevated and patient was placed on 2 L supplemental oxygen for hypoxemia Review of Systems Constitutional: Constitutional: Reports no additional constitutional complaints Cardiovascular: Cardiovascular: Reports dyspnea on exertion, Reports orthopnea and Reports paroxysmal nocturnal dyspnea Respiratory: Respiratory: Reports dyspnea on exertion Gastrointestinal: Gastrointestinal: Reports no additional gastrointestinal complaints Genitourinary: Genitourinary: Reports no additional female genitourinary complaints [facility] Medical History Diverticulosis Hemorrhoids Hypercholesterolemia Hypertension Overweight (BMI 25.0-29.9) Thyroid nodule Family History Father Hypertension Stroke CVD (cardiovascular disease) Mother Hypertension Stroke Surgical History History of cardiac catheterization (~10/18/21) History of cataract surgery History of colonoscopy History of surgery Social History Housing: Condominium Alcohol intake: current Alcohol intake frequency: a few times a week Alcohol type: wine Patient Tobacco Use Status: Former Tobacco user Tobacco use type: Cigarette e-Cigarette/Vaping Use: Never Used Second Hand Smoke Exposure: No Advance Directives: No Advance Directives Information Provided: Yes service: No Current occupational status: retired Cognitive needs: No Hearing needs: No Vision needs: Yes Meds Allergies Allergy/AdvReac Type Severity Reaction Status Date / Time atorvastatin [Lipitor] Allergy Unknown Unknown Verified 09/07/22 13:49 lovastatin Allergy Unknown Unknown Verified 09/07/22 13:49 pneumococcal vaccine Allergy Unknown Unknown Verified 09/07/22 13:49 pravastatin Allergy Unknown Unknown Verified 09/07/22 13:49 rosuvastatin [Crestor] Allergy Unknown Unknown Verified 09/07/22 13:49 simvastatin Allergy Unknown unknown Verified 09/07/22 13:49 sertraline AdvReac Intermediate sweaty Verified 09/07/22 13:49 Active Medications: Current Medications Pharmacy Consult (Consult Rx Perform Med Rec) 1 each MISCELLANE ONCE PRN PRN Reason: Consult order Home Medications Medication Instructions Recorded Confirmed Last Taken Type cholecalciferol (vitamin D3) 10 10 mcg PO DAILY 09/08/20 09/07/22 Unknown History mcg (400 unit) capsule fexofenadine 180 mg tablet 180 mg PO DAILY 09/08/20 09/07/22 Unknown History (Bianca Allergy) glucosamine HCl 750 mg tablet 750 mg PO DAILY 09/08/20 09/07/22 Unknown History multivitamin 1 tab PO DAILY 09/08/20 09/07/22 Unknown History Physical Exam Vital Signs and Narrative: Vital Signs: Last Vital Signs Temp 97.5 F 12/12/22 04:11 Pulse 116 H 12/12/22 04:11 Resp 25 H 12/12/22 04:11 BP 125/55 L 12/12/22 04:11 Pulse Ox 98 12/12/22 04:11 O2 Del Method 12/12/22 04:11 O2 Flow Rate 2 12/12/22 04:11 BMI result Body Mass Index 21.0 Elderly female lying in bed in mild distress on 2L supplemental o2 Neck supple Tachycardia with regular rhythm, S1-S2 heard B/l crackles + Abdomen soft nontender, no guarding, no rigidity Patient is awake, alert and oriented to self, place, time and person ; no focal motor deficit Psych: Normal mood Pedal edema + Results Labs 12/12/22 01:47 12/12/22 01:47 Labs: Laboratory Results - last 24 hr 12/12/22 12/12/22 12/12/22 01:46 01:46 01:47 MCV 88.9 MCH 28.7 MCHC 32.3 RDW 14.6 Plt Count 264 MPV 10.7 Immature Gran % (Auto) 0.3 Neut % (Auto) 77.7 H Lymph % (Auto) 13.1 L [place] % (Auto) 8.2 Eos % (Auto) 0.2 Baso % (Auto) 0.5 Lymph # (Auto) 1.7 [place] # (Auto) 1.1 Eos # (Auto) 0.0 Baso # (Auto) 0.1 Abs Immat Gran (auto) 0.04 H Absolute Neuts (auto) 10.0 H Absolute Nucleated RBC 0.000 Nucleated RBC % (auto) 0.0 D-Dimer High Sensitivty Anion Gap Estim Creat Clear Calc Estimated GFR Random Glucose Lactic Acid 2.0 Calcium Troponin I High Sens 25.5 H B-Natriuretic Peptide 12/12/22 12/12/22 12/12/22 01:47 01:47 01:47 MCV MCH MCHC RDW Plt Count MPV Immature Gran % (Auto) Neut % (Auto) Lymph % (Auto) [place] % (Auto) Eos % (Auto) Baso % (Auto) Lymph # (Auto) [place] # (Auto) Eos # (Auto) Baso # (Auto) Abs Immat Gran (auto) Absolute Neuts (auto) Absolute Nucleated RBC Nucleated RBC % (auto) D-Dimer High Sensitivty 212 Anion Gap 16 Estim Creat Clear Calc 51.3 Estimated GFR > 60 Random Glucose 177 H Lactic Acid Calcium 8.8 D Troponin I High Sens B-Natriuretic Peptide 1557 H Imaging Radiologist's Impressions: Impressions Chest X-Ray 12/12/22 01:55 IMPRESSION: Diffuse interstitial prominence with Gabriela B-lines suggestive of interstitial edema. Assessment and Plan (1) Hypoxia: Status: Acute (2) Congestive heart failure: Status: Acute Plan This is a 82-year-old female with pertinent history of paroxysmal atrial fibrillation on Eliquis, mixed hyperlipidemia, essential hypertension, congestive heart failure with reduced ejection fraction, gastroesophageal reflux disease, coronary artery disease with ischemic cardiomyopathy who presents to the emergency department for evaluation of dyspnea. #. Acute hypoxemic respiratory failure secondary to CHFrEF exacerbation in the setting of COVID-19 infection: Initiating IV Lasix. Transition to p.o. Lasix once euvolemia is achieved. Strict I's and O's. Low-salt diet. Continue supplemental oxygen and wean as tolerated. Currently on 2 L. Continue beta-rubén and [place]-inhibitor #. COVID-19 infection: Initiating Decadron 6 mg daily #. Elevated troponin, type 2 in the setting of increased demand #. Coronary artery disease: On beta-rubén, Plavix, statin and zetia #. Paroxysmal atrial fibrillation on Eliquis #. Essential hypertension: Continue home antihypertensives #. Gastroesophageal reflux disease: On famotidine Med rec pending DVT prophylaxis: On Eliquis Full code Cardiac diet Admit as inpatient and will require two night minimum hospital stay for supplemental oxygen and IV diuresis Time Spent With Patient Time: Total time managing care of this patient today ____ minutes. Quality Stroke Does the patient have a stroke diagnosis?: No VTE Prior VTE?: No VTE Risk Level:: Medical - moderate - high VTE Device Contraindication: Treatment Not Indicated VTE Drug Contraindication: N/A - Med Ordered
[2022-12-12 04:29] LABS: COVID-19 Test Positive (Negative); IDNOW Serial# 16C4AD1C
[2022-12-12 05:51] LABS: MANUAL DIFF FLAG NO
[2022-12-12 05:54] LABS: Basophils Percent Auto 0.2 % (0-2); Hematocrit 34.1 % (37.0-47.0); Hemoglobin 11.3 g/dl (12.0-16.0); Imm Gran Abs Auto 0.06 X10*3/uL (0.00-0.03); Imm Gran Pct Auto 0.5 % (0.0-0.4); Lymphocytes Absolute Auto 0.3 X10*3/uL (1.2-4.9); Lymphocytes Percent Auto 2.5 % (20-40); Mean Corpuscular HGB Conc 33.1 g/dl (31.0-35.0); Mean Corpuscular Volume 87.4 fL (80.0-98.0); Mean Platelet Volume 10.8 fL (9.4-12.3); Monocytes Absolute Auto 0.9 X10*3/uL (0.1-1.2); Monocytes Percent Auto 7.1 % (2-11); Neutrophils Absolute Auto 11.7 x10*3/uL (2.0-8.3); Neutrophils Percent Auto 89.7 % (45-73); Platelet Count 225 X10*3/uL (160-400); Red Cell Distribution Width 14.5 % (11.0-16.0)
[2022-12-12 06:10] LABS: Anion Gap 13 (12-20); Blood Urea Nitrogen 13 mg/dL (9-16); Calcium 8.8 mg/dL (8.4-10.2); Carbon Dioxide 24 mmol/L (22-29); Chloride 100 mmol/L (96-108); Creatinine Clr Calc Pharmacy 49.8; Estimated Glomerular Filt Rate > 60; Glucose Random 109 mg/dL (60-115); Potassium 4.1 mmol/L (3.3-5.1); Sodium 133 mmol/L (135-145)
[2022-12-12] MEDS: 0.9 % Sodium Chloride Flush 3 ML SYRINGE IVFLUSH ×3 (07:49→20:20)
[2022-12-12] MEDS: dexAMETHasone 6 MG TABLET PO (07:49)
[2022-12-12] MEDS: Furosemide 40 MG/4 ML VIAL IVPUSH (07:49)
--- NOTE | 2022-12-12 07:53 | PC.NURSE ---
patient a&ox3, athletic monitor nsr/sinus tach, vss, pt medicated per order, call hernandes within reach, will continue to monitor
--- NOTE | 2022-12-12 08:23 | PHA.MEDREC ---
MED REC COMPLETE, NO ISSUES Pharmacy Consult ? Medication Reconciliation Pharmacy has completed the medication reconciliation.
[2022-12-12] MEDS: Apixaban 5 MG TABLET PO ×2 (10:20→20:19)
--- NOTE | 2022-12-12 10:22 | PC.NURSE ---
eliquis given per order
--- NOTE | 2022-12-12 12:49 | PC.NURSE ---
[facility] number jose- [phone]
[2022-12-12 17:25] LABS: Alanine Aminotransferase 70 U/L (0-31); Aspartate Amino Transferase 92 U/L (5-31); Bilirubin Total 0.5 mg/dL (0.0-1.0)
[2022-12-12] MEDS: Remdesivir 200 MG in 0.9 % Sodium Chloride 210 ML 105 MG IV (18:19)
--- NOTE | 2022-12-12 18:22 | P.EN_ITS ---
Event Note Date of Service: 12/12/22 Event Note: 82-year-old female with pertinent history of paroxysmal atrial fibrillation on Eliquis, mixed hyperlipidemia, essential hypertension, congestive heart failure with reduced ejection fraction, gastroesophageal reflux disease, coronary artery disease with ischemic cardiomyopathy presents to the emergency department for evaluation of dyspnea. #.? Acute hypoxemic respiratory failure secondary to CHFrEF exacerbation in the setting of COVID-19 infection:? echo 11/26/21 showed ejection fraction is between 40-45%. Continue IV Lasix,Strict I's and O's, Low-salt diet.? Wean oxygen as tolerated Continue beta-rubén and [place]-inhibitor #. COVID-19 infection: iv remdesivir, continue Decadron 6 mg daily, supportive care and isolation. #.? Elevated troponin, 25.5 will repeat troponin , likely in the setting of inc reased demand #. Coronary artery disease: No chest pain continue beta-rubén, Plavix, statin and zetia #. Paroxysmal atrial fibrillation on Eliquis and metoprolol #. Essential hypertension:? Continue home antihypertensives #. Gastroesophageal reflux disease: On famotidine DVT prophylaxis:? On Eliquis Full code Need continued inpatient hospitalization for acute hypoxic respiratory failure on IV Lasix for congestive heart failure Time Spent With Patient Time: Total time managing care of this patient today ____ minutes.
[2022-12-12] MEDS: Famotidine 20 MG TABLET PO (20:19)
[2022-12-12] MEDS: Atorvastatin Calcium 40 MG TABLET PO (20:19)
[2022-12-13] VITALS (7 sets, daily range): BP systolic 114–149; BP diastolic 51–87; PULSE 80–108; RESP 16–20; TEMP 36.1–37.1; O2SAT 94–98
[2022-12-13 07:27] LABS: Anion Gap 12 (12-20); Blood Urea Nitrogen 16 mg/dL (9-16); Calcium 8.9 mg/dL (8.4-10.2); Carbon Dioxide 28 mmol/L (22-29); Chloride 101 mmol/L (96-108); Creatinine Clr Calc Pharmacy 50.5; Estimated Glomerular Filt Rate > 60; Glucose Random 84 mg/dL (60-115); Potassium 3.8 mmol/L (3.3-5.1); Sodium 137 mmol/L (135-145)
[2022-12-13 07:34] LABS: B Type Natriuretic Peptide 1556 pg/mL (<100)
--- NOTE | 2022-12-13 09:38 | PM.CNCAR ---
History of Present Illness History of Present Illness Date of Service: 12/13/22 Chief complaint: Dyspnea Narrative: This is a cardiology consultation regarding congestive heart failure. Patient is well known to us. Generally seen in the office. She has a history of coronary disease and ischemic cardiomyopathy. To recall, in 2020, she had inferior STEMI. Then had cardiac catheterization that showed occluded RCA. Due to late presentation, infarction of the region, no clear-cut chest pains, she did not get any PCI. Then plan to be only on medical therapy. Cardiac surgery was also thought to be high risk. Since then, generally doing well and being followed in the office. Current admission is for respiratory failure secondary to COVID. She had symptoms including morning otherwise, nasal congestion, shortness of breath and tested positive for COVID-19. Her also positive for the same. Patient since admitted. Currently, she states she is generally okay. Shortness of breath is better. No other cardiac complaints at this time. Some cough. Review of Systems Review of Systems: Yes all other systems are reviewed and are negative Constitutional: Constitutional: Reports as per HPI Eyes: Eyes: Reports as per HPI ENT: Reports as per HPI Cardiovascular: Cardiovascular: Reports as per HPI, Denies acrocyanosis, Denies cool extremities, Denies chest pain, Denies leg edema, Denies lightheadedness, Denies palpitations and Reports dyspnea Respiratory: Respiratory: Reports as per HPI, Reports no additional respiratory complaints, Reports cough and Reports dyspnea Gastrointestinal: Gastrointestinal: Reports as per HPI and Reports no additional gastrointestinal complaints Genitourinary: Genitourinary: Reports as per HPI Musculoskeletal: Musculoskeletal: Reports no additional musculoskeletal complaints and Reports as per HPI Integumentary/Breasts: Skin/Breast: Reports system reviewed and no additional complaints, except as docu Neurologic: Reports system reviewed and no additional complaints, except as documented and Reports as per HPI Psychiatric: Psychiatric: Reports no additional psychiatric complaints and Reports as per HPI Endocrine: Endocrine: Reports no additional endocrine complaints, Reports as per HPI and Denies palpitations Hematologic/Lymphatic: Hematologic/Lymphatic: Reports no additional hematologic/lymphatic complaints and Reports as per HPI Allergic/Immunologic: Allergic/Immunologic: Reports no additional allergic/immunologic complaints and Reports as per HPI [facility] Past Medical History Medical History Diverticulosis Hemorrhoids Hypercholesterolemia Hypertension Overweight (BMI 25.0-29.9) Thyroid nodule Family History Family History Father Hypertension Stroke CVD (cardiovascular disease) Mother Hypertension Stroke Surgical History Surgical History History of cardiac catheterization (~10/18/21) History of cataract surgery History of colonoscopy History of surgery Social History Social History Household Members: Spouse Housing: House Alcohol intake: never Patient Tobacco Use Status: Former Tobacco user Tobacco use type: Cigarette e-Cigarette/Vaping Use: Never Used Second Hand Smoke Exposure: No service: No Current occupational status: retired Cognitive needs: No Hearing needs: No Vision needs: Yes Meds Allergies Allergy/AdvReac Type Severity Reaction Status Date / Time atorvastatin [Lipitor] Allergy Unknown Unknown Verified 09/07/22 13:49 lovastatin Allergy Unknown Unknown Verified 09/07/22 13:49 pneumococcal vaccine Allergy Unknown Unknown Verified 09/07/22 13:49 pravastatin Allergy Unknown Unknown Verified 09/07/22 13:49 rosuvastatin [Crestor] Allergy Unknown Unknown Verified 09/07/22 13:49 simvastatin Allergy Unknown unknown Verified 09/07/22 13:49 sertraline AdvReac Intermediate sweaty Verified 09/07/22 13:49 Active Medications: Current Medications Acetaminophen (Acetaminophen 325 Mg Tablet) 650 mg PO Q6H PRN PRN Reason: Pain, Mild (Pain Scale 1-3) Apixaban (Apixaban 5 Mg Tablet) 5 mg PO BID [facility] Last Admin: 12/12/22 20:19 Dose: 5 mg Atorvastatin Calcium (Atorvastatin Calcium 40 Mg Tablet) 40 mg PO BEDTIME CHANCE Last Admin: 12/12/22 20:19 Dose: 40 mg Clopidogrel Bisulfate (Clopidogrel Bisulfate 75 Mg Tablet) 75 mg PO DAILY [facility] Dexamethasone (Dexamethasone 6 Mg Tablet) 6 mg PO DAILY [facility] Last Admin: 12/12/22 07:49 Dose: 6 mg Ezetimibe (Ezetimibe 10 Mg Tablet) 10 mg PO DAILY [facility] Famotidine (Famotidine 20 Mg Tablet) 20 mg PO BEDTIME [facility] Last Admin: 12/12/22 20:19 Dose: 20 mg Fluticasone Propionate (Fluticasone Propionate Nasal 16 [address] [place]) 2 spray NOSTRIL-B DAILY [facility] Furosemide (Furosemide 40 Mg/4 Ml Vial) 40 mg IVPUSH DAILY [facility]; Protocol Last Admin: 12/12/22 07:49 Dose: 40 mg Remdesivir 100 mg/ Sodium (Chloride) 230 mls @ 115 mls/hr IV Q24H [facility] Stop: 12/14/22 19:59 Lisinopril (Lisinopril 2.5 Mg Tablet) 2.5 mg PO DAILY [facility]; Protocol Melatonin (Melatonin 3 Mg Tablet) 6 mg PO BEDTIME PRN PRN Reason: Insomnia Metoprolol Succinate (Metoprolol Succinate Er 50 Mg Tab.Er.24h) 50 mg PO DAILY [facility]; Protocol Multivitamins/Vitamin C (Multivitamin Tablet) 1 tab PO DAILY [facility] Ondansetron HCl (Ondansetron Hcl 4 Mg/2 Ml Vial) 4 mg IVPUSH Q8H PRN PRN Reason: Nausea and Vomiting Pharmacy Consult (Consult Rx Perform Med Rec) 1 each MISCELLANE ONCE PRN PRN Reason: Consult order Pharmacy Consult (Consult Rx Perform Med Rec) 1 each MISCELLANE ONCE PRN PRN Reason: Consult order Sodium Chloride (0.9 % Sodium Chloride Flush 3 Ml Syringe) 3 ml IVFLUSH QSHIFT [facility] Last Admin: 12/12/22 20:20 Dose: 3 ml Vitamin D (Cholecalciferol (Vitamin D3) 10 Mcg Tablet) 10 mcg PO DAILY [facility] Home Medications Medication Instructions Recorded Confirmed Last Taken Type cholecalciferol (vitamin D3) 10 10 mcg PO DAILY 09/08/20 12/12/22 12/11/22 History mcg (400 unit) capsule fexofenadine 180 mg tablet 180 mg PO DAILY 09/08/20 12/12/22 Unknown History (Bianca Allergy) glucosamine HCl 750 mg tablet 750 mg PO DAILY 09/08/20 12/12/22 12/11/22 History multivitamin 1 tab PO DAILY 09/08/20 12/12/22 12/11/22 History calcium carbonate 500 mg calcium 500 mg PO DAILY 12/12/22 12/12/22 12/11/22 History (1,250 mg) chewable tablet (Calcium 500) lisinopril 2.5 mg tablet 2.5 mg PO DAILY 12/12/22 12/12/22 12/11/22 History rosuvastatin 20 mg tablet (Crestor) 20 mg PO BEDTIME 12/12/22 12/12/22 12/11/22 History Physical Exam Vital Signs: Vital Signs: Last Vital Signs Temp 97.6 F 12/13/22 07:29 Pulse 108 H 12/13/22 07:29 Resp 16 12/13/22 07:29 BP 121/56 L 12/13/22 07:29 Pulse Ox 98 12/13/22 07:29 O2 Del Method 12/13/22 07:29 O2 Flow Rate 2 12/13/22 07:29 BMI result Body Mass Index 21.0 Const: General: comfortable and no acute distress Orientation/consciousness: patient oriented x3 HEENT: Other: Unremarkable Head: Yes normal to inspection Neck: Neck: Yes normal visual inspection Chest: Chest palpation & inspection: normal inspection of the chest Resp: Auscultation: clear to auscultation bilaterally Cardio: Palpation: normal PMI Heart sounds: S1 normal heart sound present, S2 normal heart sound present, no gallops, no murmurs and no rubs GI: Palpation (GI): Soft to palpation Back/Spine/Pelvis: Other: unremarkable Skin: General skin exam: no rashes or lesions noted Neuro: General: patient oriented x3 Extrem: General: Yes normal to inspection Psych: Mental Status: mental status grossly normal Objective Labs and Meds 12/12/22 05:46 12/13/22 07:07 Lab results: Laboratory Results - last 24 hr 12/12/22 12/13/22 12/13/22 05:46 07:07 07:07 Sodium 137 Potassium 3.8 Chloride 101 Carbon Dioxide 28 Anion Gap 12 BUN 16 Creatinine 0.69 Estim Creat Clear Calc 50.5 Estimated GFR > 60 Random Glucose 84 Calcium 8.9 Total Bilirubin 0.5 AST 92 H ALT 70 H B-Natriuretic Peptide 1556 H ECG Interpretation: EKG with sinus tachycardia at 130/Min. 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 Has been noted before. Assessment and Plan (1) Acute hypoxemic respiratory failure due to COVID-19: Status: Acute (2) Acute on chronic systolic and diastolic heart failure, NYHA class 3: Status: Acute (3) Ischemic cardiomyopathy: Status: Acute (4) Nonrheumatic mitral valve regurgitation: Status: Acute (5) Atherosclerotic cardiovascular disease: Status: Acute (6) PAF (paroxysmal atrial fibrillation): Status: Acute Plan Labs show slight anemia at 11.3 but not too different from before. Mildly abnormal LFTs but again has been noted before. Cardiac BNP is 1556. Higher than before. Low-grade troponins. COVID-19 is positive. Echocardiogram in the past with LVEF 40-45%. Wall motion abnormalities in the inferior/inferoseptal/inferolateral messina. Moderate mitral regurgitation and mild pulmonary hypertension. Moderate pericardial effusion. Overall, decompensation likely from some combination of COVID-19 infection and heart failure exacerbation. It seems she has already improved since admission time. Can keep on IV Lasix today but probably switch her back to oral in other day or so. Monitor renal function. With regard to mitral regurgitation history, no specific management. With regard to pericardial effusion, we will get a repeat echocardiogram as an outpatient probably. She has no symptoms from this either. Continue anticoagulation for the atrial fibrillation history. Currently, she is in sinus. Will follow up with you. Time Spent With Patient Time: Total time managing care of this patient today 75 minutes. Procedures Date of Service Date of Service: 12/13/22
[2022-12-13] MEDS: Ezetimibe 10 MG TABLET PO (09:42)
[2022-12-13] MEDS: 0.9 % Sodium Chloride Flush 3 ML SYRINGE IVFLUSH ×3 (09:42→20:51)
[2022-12-13] MEDS: dexAMETHasone 6 MG TABLET PO (09:42)
[2022-12-13] MEDS: Metoprolol Succinate ER 50 MG TAB.ER.24H PO (09:42)
[2022-12-13] MEDS: Cholecalciferol (Vitamin D3) 10 MCG TABLET PO (09:43)
[2022-12-13] MEDS: Furosemide 40 MG/4 ML VIAL IVPUSH (09:43)
[2022-12-13] MEDS: Multivitamin TABLET 1 TAB PO (09:43)
[2022-12-13] MEDS: lisinopriL 2.5 MG TABLET PO (09:43)
[2022-12-13] MEDS: Apixaban 5 MG TABLET PO ×2 (09:43→20:48)
[2022-12-13] MEDS: Clopidogrel Bisulfate 75 MG TABLET PO (09:43)
--- NOTE | 2022-12-13 09:43 | MHC.CM.PN ---
PT COVID-19 + CM CALLED PTS DAUGHTER/PRIMARY CONTACT, SHAUNNA [phone] SHE REPORTS PT LIVES WITH HER AND HER DAUGHTER ALSO LIVES NEXT DOOR SHE SAYS PT IS INDEPENDENT AT BASELINE AND USES NO DME AND NO SERVICES PT IS COVID VAX X 4 SHAUNNA SAYS PT DOES HAVE A HCP, COPY REQUESTED HCP IS REPORTEDLY PTS AND THEN SHAUNNA, HOWEVER, HER IS ALSO COVID + AND [employer] [facility] [facility] DELIVERED DCP: HOME NO SERVICES VIA FAMILY TRANSPORT
--- NOTE | 2022-12-13 09:55 | HO.PM.IMPN ---
Subjective Subjective Date of Service: 12/13/22 Interval History: Feeling better this morning, less shortness of breath, mild dry cough, no fevers, no chills, no other acute issues, tolerating diet, stable oxygenation on 2 L, no overnight events. Review of Systems Review of Systems: Yes all other systems are reviewed and are negative Physical Exam Vital Signs: Vital Signs: Last Vital Signs Temp 97.6 F 12/13/22 07:29 Pulse 108 H 12/13/22 07:29 Resp 16 12/13/22 07:29 BP 121/56 L 12/13/22 07:29 Pulse Ox 98 12/13/22 07:29 O2 Del Method 12/13/22 07:29 O2 Flow Rate 2 12/13/22 07:29 BMI result Body Mass Index 21.0 Const: Other: General awake, alert, sitting comfortably in no acute distress. Neck is supple no JVD. CVS regular rate rhythm, Respiratory lungs clear to auscultation, no respiratory distress, no wheeze, no rhonchi. Gastrointestinal abdomen soft, nontender, bowel sounds audible, no guarding , no rigidity. Extremities no edema. Neuro nonfocal ,speech clear. Skin no rash Psych appropriate affect Objective Data Active Medications Acetaminophen (Acetaminophen 325 Mg Tablet) 650 mg PO Q6H PRN PRN Reason: Pain, Mild (Pain Scale 1-3) Apixaban (Apixaban 5 Mg Tablet) 5 mg PO BID [facility] Last Admin: 12/13/22 09:43 Dose: 5 mg Documented By: LESLEY Atorvastatin Calcium (Atorvastatin Calcium 40 Mg Tablet) 40 mg PO BEDTIME [facility] Last Admin: 12/12/22 20:19 Dose: 40 mg Documented By: ANTOIC Clopidogrel Bisulfate (Clopidogrel Bisulfate 75 Mg Tablet) 75 mg PO DAILY [facility] Last Admin: 12/13/22 09:43 Dose: 75 mg Documented By: LESLEY Dexamethasone (Dexamethasone 6 Mg Tablet) 6 mg PO DAILY [facility] Last Admin: 12/13/22 09:42 Dose: 6 mg Documented By: LESLEY Ezetimibe (Ezetimibe 10 Mg Tablet) 10 mg PO DAILY [facility] Last Admin: 12/13/22 09:42 Dose: 10 mg Documented By: LESLEY Famotidine (Famotidine 20 Mg Tablet) 20 mg PO BEDTIME [facility] Last Admin: 12/12/22 20:19 Dose: 20 mg Documented By: BETH Fluticasone Propionate (Fluticasone Propionate Nasal 16 Gm [place]) 2 spray NOSTRIL-B DAILY [facility] Furosemide (Furosemide 40 Mg/4 Ml Vial) 40 mg IVPUSH DAILY [facility]; Protocol Last Admin: 12/13/22 09:43 Dose: 40 mg Documented By: LESLEY Remdesivir 100 mg/ Sodium (Chloride) 230 mls @ 115 mls/hr IV Q24H [facility] Stop: 12/14/22 19:59 Lisinopril (Lisinopril 2.5 Mg Tablet) 2.5 mg PO DAILY [facility]; Protocol Last Admin: 12/13/22 09:43 Dose: 2.5 mg Documented By: LESLEY Melatonin (Melatonin 3 Mg Tablet) 6 mg PO BEDTIME PRN PRN Reason: Insomnia Metoprolol Succinate (Metoprolol Succinate Er 50 Mg Tab.Er.24h) 50 mg PO DAILY [facility]; Protocol Last Admin: 12/13/22 09:42 Dose: 50 mg Documented By: LESLEY Multivitamins/Vitamin C (Multivitamin Tablet) 1 tab PO DAILY [facility] Last Admin: 12/13/22 09:43 Dose: 1 tab Documented By: LESLEY Ondansetron HCl (Ondansetron Hcl 4 Mg/2 Ml Vial) 4 mg IVPUSH Q8H PRN PRN Reason: Nausea and Vomiting Pharmacy Consult (Consult Rx Perform Med Rec) 1 each MISCELLANE ONCE PRN PRN Reason: Consult order Pharmacy Consult (Consult Rx Perform Med Rec) 1 each MISCELLANE ONCE PRN PRN Reason: Consult order Sodium Chloride (0.9 % Sodium Chloride Flush 3 Ml Syringe) 3 ml IVFLUSH QSHIFT [facility] Last Admin: 12/13/22 09:42 Dose: 3 ml Documented By: LESLEY Vitamin D (Cholecalciferol (Vitamin D3) 10 Mcg Tablet) 10 mcg PO DAILY [facility] Last Admin: 12/13/22 09:43 Dose: 10 mcg Documented By: LESLEY Labs 12/12/22 05:46 12/13/22 07:07 Labs: Laboratory Results - last 24 hr 12/12/22 12/13/22 12/13/22 05:46 07:07 07:07 Anion Gap 12 Estim Creat Clear Calc 50.5 Estimated GFR > 60 Random Glucose 84 Calcium 8.9 Total Bilirubin 0.5 AST 92 H ALT 70 H B-Natriuretic Peptide 1556 H Microbiology Microbiology Results: Microbiology 12/12/22 01:48 Blood Culture - Preliminary Blood - Venous No growth after 24 hours. 12/12/22 01:46 Blood Culture - Preliminary Blood - Venous No growth after 24 hours. Assessment and Plan (1) Acute on chronic systolic and diastolic heart failure, NYHA class 3: Status: Acute (2) COVID-19: Status: Acute (3) Acute hypoxemic respiratory failure due to COVID-19: Status: Acute Plan 82-year-old female with pertinent history of paroxysmal atrial fibrillation on Eliquis, mixed hyperlipidemia, essential hypertension, congestive heart failure with reduced ejection fraction, gastroesophageal reflux disease, coronary artery disease with ischemic cardiomyopathy? presents to the emergency department for evaluation of dyspnea. #.? Acute hypoxemic respiratory failure secondary to CHFrEF exacerbation in the setting of COVID-19 infection:? Feeling better this morning no shortness of breath, minimal dry cough, oxygen 98% on 2 L ?Recent echo 11/26/21 showed ejection fraction 40-45%, with wall motion abnormality moderate MR and moderate pericardial effusion. ?? ? Continue IV Lasix 40 mg x 24 hours,Strict I's and O's, Low-salt diet.? Wean oxygen as tolerated not on home oxygen ?? ? Continue beta-rubén and [place]-inhibitor Seen by Cardiology agree with above treatment, outpatient follow-up for pericardial effusion #. COVID-19 infection:? On iv remdesivir D2/3, and Decadron 6 mg daily D2/7, supportive care and isolation. Wean O2 #.? Elevated troponin, 25.5 , asymptomatic, no acute ischemic change, likely due to COVID and hypoxia #. Coronary artery disease:? No chest pain continue beta-rubén, Plavix, statin and zetia #. Paroxysmal atrial fibrillation on Eliquis and metoprolol, in normal sinus rhythm #. Essential hypertension:? Stable BP Continue home antihypertensives #. Gastroesophageal reflux disease: On famotidine DVT prophylaxis:? On Eliquis Full code Need continued inpatient hospitalization for acute hypoxic respiratory failure on oxygen and IV Lasix for congestive heart failure. Time Spent With Patient Time: Total time managing care of this patient today ____ minutes. Quality Stroke Does the patient have a stroke diagnosis?: No VTE Prior VTE?: No VTE Risk Level:: Medical - moderate - high VTE Device Contraindication: Treatment Not Indicated VTE Drug Contraindication: N/A - Med Ordered
[2022-12-13] MEDS: Remdesivir 100 MG in 0.9 % Sodium Chloride 230 ML 115 MG IV (18:28)
[2022-12-13] MEDS: Famotidine 20 MG TABLET PO (20:48)
[2022-12-13] MEDS: Atorvastatin Calcium 40 MG TABLET PO (20:48)
[2022-12-14 02:46] VITALS: BP 122/68; PULSE 84; RESP 20; TEMP 36.3; O2SAT 95
[2022-12-14 07:53] VITALS: BP 120/58; PULSE 84; RESP 17; TEMP 36.2; O2SAT 96
[2022-12-14 07:58] LABS: Anion Gap 12 (12-20); Blood Urea Nitrogen 20 mg/dL (9-16); Calcium 8.9 mg/dL (8.4-10.2); Carbon Dioxide 26 mmol/L (22-29); Chloride 103 mmol/L (96-108); Creatinine Clr Calc Pharmacy 53.6; Estimated Glomerular Filt Rate > 60; Glucose Random 89 mg/dL (60-115); Potassium 3.7 mmol/L (3.3-5.1); Sodium 137 mmol/L (135-145)
[2022-12-14] MEDS: Ezetimibe 10 MG TABLET PO (08:03)
[2022-12-14] MEDS: 0.9 % Sodium Chloride Flush 3 ML SYRINGE IVFLUSH (08:03)
[2022-12-14] MEDS: Metoprolol Succinate ER 50 MG TAB.ER.24H PO (08:03)
[2022-12-14] MEDS: Clopidogrel Bisulfate 75 MG TABLET PO (08:03)
[2022-12-14] MEDS: lisinopriL 2.5 MG TABLET PO (08:03)
[2022-12-14] MEDS: Apixaban 5 MG TABLET PO (08:03)
[2022-12-14] MEDS: Cholecalciferol (Vitamin D3) 10 MCG TABLET PO (08:04)
[2022-12-14] MEDS: Furosemide 40 MG/4 ML VIAL IVPUSH (08:04)
[2022-12-14] MEDS: dexAMETHasone 6 MG TABLET PO (08:04)
[2022-12-14] MEDS: Multivitamin TABLET 1 TAB PO (08:04)
[2022-12-14 08:13] LABS: B Type Natriuretic Peptide 1740 pg/mL (<100)
--- NOTE | 2022-12-14 10:54 | P.DS_ITS ---
DS: Providers Provider Date of Service: 12/14/22 Date of admission: 12/12/22 04:24 Primary care physician: Liborio Cast MD Consults: 12/12/22 11:32 Consult to Cardiology Routine Consulting Provider: Davi Grande Reason for consultation: chf Has provider been notified: No DS: Diagnosis Discharge Diagnosis (1) Acute on chronic systolic and diastolic heart failure, NYHA class 3: Status: Acute (2) COVID-19: Status: Acute (3) Acute hypoxemic respiratory failure due to COVID-19: Status: Acute DS: Summary Hospital Course Hospital Course: Date of Service: 12/12/22 Chief Complaint: Dyspnea This is a 82-year-old female with pertinent history of paroxysmal atrial fibrillation on Eliquis, mixed hyperlipidemia, essential hypertension, congestive heart failure with reduced ejection fraction, gastroesophageal reflux disease, coronary artery disease with ischemic cardiomyopathy who presents to the emergency department for evaluation of dyspnea.? Patient states she started having watering of eyes, nasal congestion and dyspnea, worse with exertion 1 day prior to presentation.? She tested positive for COVID-19 infection yesterday. ? Patient states her dyspnea has gotten worse over the last 24 hours and hence she decided to present to the ER for further evaluation. Patient states her is also positive for COVID-19.? Patient endorses orthopnea and PND. Patient admits dry cough.? No fever, chills.? She denies chest discomfort, palpitations, abdominal pain, changes in urinary or bowel habits. In the emergency department, imaging with interstitial pulmonary edema.? BNP was found to be elevated and patient was placed on 2 L supplemental oxygen for hypoxemia Hospital course 82-year-old female with pertinent history of paroxysmal atrial fibrillation on Eliquis, mixed hyperlipidemia, essential hypertension, congestive heart failure with reduced ejection fraction, gastroesophageal reflux disease, coronary artery disease with ischemic cardiomyopathy? presents to the emergency department for evaluation of dyspnea. #.? Acute hypoxemic respiratory failure secondary to acute CHFrEF exacerbation in the setting of COVID-19 infection, patient admitted to isolation unit and treated with IV Lasix 40 mg, IV remdesivir and Decadron, Patient responded well to above treatment, oxygenation stable on room air, therefore being discharged home on by mouth Decadron for total 10 day treatment, she finished 3 day course of IV remdesivir, recommend isolation for total 5 days and longer if remains symptomatic with fever or cough, she is recommended to continue torsemide as needed since appear euvolemic? Patient was evaluated by Cardiology, elevated troponin likely related to C OVID, echo in the past has shown EF 40-45% with wall motion abnormalities in inferior/in fever septal/inferior lateral messina moderate mitral regurgitation recommend outpatient follow-up with Cardiology. #. Coronary artery disease:? continue beta-rubén, Plavix, statin and zetia #. Paroxysmal atrial fibrillation on Eliquis and metoprolol, in normal sinus rhythm #. Essential hypertension:? Stable BP Continue home antihypertensives #. Gastroesophageal reflux disease: On famotidine Time Spent with Patient Time attestation: Total time managing care of this patient today ____ minutes. Discharge coordination time: Greater than 30 minutes Quality: Safe Use of Opioids Does Pt have an Active Cancer Diagnosis on the Problem List?: No Quality: Stroke Does the patient have a stroke diagnosis?: No Physical Exam Vital Signs: Vital Signs: Last Vital Signs Temp 97.1 F 12/14/22 07:53 Pulse 84 12/14/22 07:53 Resp 17 12/14/22 07:53 BP 120/58 L 12/14/22 07:53 Pulse Ox 96 12/14/22 07:53 O2 Del Method 12/14/22 07:53 O2 Flow Rate 2 12/13/22 07:29 BMI result Body Mass Index 21.0 Const: Other: General awake, daya rt, sitting comfor tably in no acute distress.? Neck is supple no JVD. CV S? regular rate rh ythm, Respiratory lungs clear to aus cultation, no resp iratory distress, no wheeze, no rhon ch,no ralesi. Margarita rointestinal abdom en soft, nontender , bowel sounds aud ible, no guarding , no rigidity. Ext remities no edema. Neuro nonfocal ,s peech clear. Skin no rash Psych appr opriate affect DS: Data Data Completed and Pending Labs on day of discharge: Laboratory Results - last 24 hr 12/14/22 12/14/22 07:24 07:24 Sodium 137 Potassium 3.7 Chloride 103 Carbon Dioxide 26 Anion Gap 12 BUN 20 H Creatinine 0.65 Estim Creat Clear Calc 53.6 Estimated GFR > 60 Random Glucose 89 Calcium 8.9 B-Natriuretic Peptide 1740 H Preliminary micro results at discharge 12/12/22 01:48 Blood Culture - Preliminary Blood - Venous No growth after 48 hours. 12/12/22 01:46 Blood Culture - Preliminary Blood - Venous No growth after 48 hours. Discharge Plan Discharge Anticipated Discharge Date/Time: 12/14/22 10:50 Patient Disposition: Home, Self-Care Discharge Diagnosis: Acute hypoxic respiratory failure COVID-19 infection Acute CHF exacerbation with reduced EF Referrals: Po,Liborio Marin MD [Primary Care Provider] - 1 Week Discharge Medications: New dexamethasone 6 mg tablet 6 mg PO DAILY Qty: 7 0RF Rx Instructions: Take 1 tablet daily with food Continued fluticasone propionate [Allergy Relief (fluticasone)] 50 mcg/actuation spray,suspension 2 spray intranasal DAILY Qty: 16 5RF Rx Instructions: administer into each nostril famotidine 20 mg tablet 20 mg PO BEDTIME Qty: 90 2RF ezetimibe 10 mg tablet 10 mg PO DAILY Qty: 90 3RF clopidogrel 75 mg tablet 75 mg PO DAILY Qty: 90 3RF metoprolol succinate 50 mg tablet extended release 24 hr 50 mg PO DAILY Qty: 90 3RF Eliquis 5 mg tablet 5 mg PO BID Qty: 180 3RF lisinopril 2.5 mg Tablet 2.5 mg PO DAILY rosuvastatin [Crestor] 20 mg tablet 20 mg PO BEDTIME calcium carbonate [Calcium 500] 500 mg calcium (1,250 mg) Tablet,Chewable 500 mg PO DAILY glucosamine HCl 750 mg tablet 750 mg PO DAILY Rx Instructions: administer with a meal cholecalciferol (vitamin D3) 10 mcg (400 unit) capsule 10 mcg PO DAILY multivitamin Tablet 1 tab PO DAILY fexofenadine [Bianca Allergy] 180 mg tablet 180 mg PO DAILY torsemide 20 mg tablet 20 mg PO DAILY PRN (Reason: sob) Qty: 90 3RF Discharge Orders: Discharge Order (Routine); Ordered 12/14/22 Ordered By: Charmaine Martinez Diet: Advance to usual diet Activity on Discharge: As tolerated Stand Alone Forms: Patient Portal Discharge page Care Plan Goals: For COVID-19, take Decadron 6 mg x 7 days, continue isolation/mask for 5 days and continue if symptomatic with fever or cough You finish 3 day course remdesivir Continue all home medications as before Return to check with worsening shortness of breath, high-grade fevers shortness of breath or cough. Health Concerns: Take all home medications as above Plan of Treatment: Call PCP and Cardiology for follow-up appointment Assessment: As above
--- NOTE | 2022-12-14 11:19 | MHC.CM.PN ---
DP: PT HAS BEEN MEDICALLY CLEARED FOR DC HOME NO SERVICES. RN AWARE. DAUGHTER FLAKITO NOTIFIED AND WILL TRANSPORT HOME
[2022-12-14 11:28] VITALS: BP 122/63; PULSE 82; RESP 16; TEMP 36.4; O2SAT 94
[2022-12-14] MEDS: Remdesivir 100 MG in 0.9 % Sodium Chloride 230 ML 115 MG IV (12:13)
[2022-12-14 15:08] VITALS: BP 137/63; PULSE 81; RESP 20; TEMP 36.7; O2SAT 97
== END 2022-12-14 16:30 | disposition home or self-care (01) | DRG 177 ==
LOC: HO.ED 02:51 → HO.EDOVER 04:32 → HO.IMC 11:38
PROVIDERS: Admitting Provider Student in an Organized Health Care Education/Training Program; Emergency Provider Internal Medicine; PCP Internal Medicine; Visit Provider Hospitalist
DX: U07.1 COVID-19 (principal); I50.23 Acute on chronic systolic (congestive) heart failure; J96.01 Acute respiratory failure with hypoxia; E78.00 Pure hypercholesterolemia, unspecified; I48.0 Paroxysmal atrial fibrillation; I25.5 Ischemic cardiomyopathy; I34.0 Nonrheumatic mitral (valve) insufficiency; F41.9 Anxiety disorder, unspecified; K21.9 Gastro-esophageal reflux disease without esophagitis; I25.10 Atherosclerotic heart disease of native coronary artery without angina pectoris; I11.0 Hypertensive heart disease with heart failure; Z87.891 Personal history of nicotine dependence; Z88.7 Allergy status to serum and vaccine; Z88.8 Allergy status to other drugs, medicaments and biological substances; Z79.01 Long term (current) use of anticoagulants; Z79.51 Long term (current) use of inhaled steroids; Z79.899 Other long term (current) drug therapy
CPT/HCPCS: 36415; 71045; 80048; 82247; 83605; 83880; 84450; 84460; 84484; 85025; 85379; 87040; 87635; 93005; 99285; J0248; J1940; J8540

== ENCOUNTER 2023-02-16 06:39 | Outpatient (REF) | payer MEDICARE, SELFPAY ==
[2022-05-04 12:53] VITALS: BP 108/62; BP 132/70; BMI 23.3
[2023-02-16 08:12] LABS: B Type Natriuretic Peptide 578 pg/mL (<100)
[2023-02-16 11:19] LABS: MANUAL DIFF FLAG NO
[2023-02-16 11:46] LABS: Alanine Aminotransferase 38 U/L (0-31); Albumin Level 4.1 g/dL (3.5-5.0); Alkaline Phosphatase 93 U/L (39-117); Anion Gap 12 (12-20); Aspartate Amino Transferase 42 U/L (5-31); Bilirubin Total 0.5 mg/dL (0.0-1.0); Blood Urea Nitrogen 19 mg/dL (9-16); Calcium 9.6 mg/dL (8.4-10.2); Carbon Dioxide 30 mmol/L (22-29); Chloride 105 mmol/L (96-108); Cholesterol 136 mg/dL; Estimated Glomerular Filt Rate > 60; Glucose Random 81 mg/dL (60-115); HDL Cholesterol 63 mg/dL; Iron 61 mcg/dL (30-160); LDL Cholesterol Calculated 65 mg/dl; Magnesium 2.2 mg/dL (1.6-2.6); Percent Iron Saturation 21 % (15-50); Sodium 143 mmol/L (135-145); Total Iron Binding Capacity 297 mcg/dL (228-428); Triglycerides 44 mg/dL; Unsaturated Iron Binding 236 ug/dL
[2023-02-16 11:50] LABS: Basophils Absolute Auto 0.1 X10*3/uL (0.0-0.2); Eosinophils Absolute Auto 0.2 X10*3/uL (0.0-0.4); Eosinophils Percent Auto 3.2 % (0-4); Hematocrit 37.7 % (37.0-47.0); Imm Gran Abs Auto 0.03 X10*3/uL (0.00-0.03); Imm Gran Pct Auto 0.4 % (0.0-0.4); Immature Retic Fraction 9.1 % (3.0-15.9); Lymphocytes Absolute Auto 1.1 X10*3/uL (1.2-4.9); Lymphocytes Percent Auto 15.6 % (20-40); Mean Corpuscular HGB Conc 31.8 g/dl (31.0-35.0); Mean Corpuscular Volume 91.1 fL (80.0-98.0); Mean Platelet Volume 11.1 fL (9.4-12.3); Monocytes Absolute Auto 0.8 X10*3/uL (0.1-1.2); Monocytes Percent Auto 11.3 % (2-11); Neutrophils Absolute Auto 4.9 x10*3/uL (2.0-8.3); Neutrophils Percent Auto 68.5 % (45-73); Platelet Count 279 X10*3/uL (160-400); Red Blood Count 4.14 X10*6/uL (4.20-5.50); Red Cell Distribution Width 15.1 % (11.0-16.0); Retic HGB Equivalent 32.6 pg (30.0-35.0); Reticulocyte Percent 1.6 % (0.5-1.8); Reticulocytes Absolute 0.067 X10*6/uL (0.026-0.095); White Blood Count 7.2 X10*3/uL (4.8-10.8)
[2023-02-16 12:36] LABS: Ferritin 61 ng/mL (10-250); Folate 17.1 ng/mL (> or = 4.0); Free T4 (Free Thyroxine) 0.94 ng/dL (0.71-1.85); Thyroid Stimulating Hormone 3.49 uIU/mL (0.32-4.0); Vitamin B12 1046 pg/mL (200-900); Vitamin D 25-OH Total 46.3 ng/mL (>30)
== END 2023-02-16 06:40 | disposition home or self-care (01) ==
LOC: HO.HMGCLDS 06:39
PROVIDERS: PCP Internal Medicine; Visit Provider Internal Medicine
DX: I48.0 Paroxysmal atrial fibrillation (principal); E78.00 Pure hypercholesterolemia, unspecified; I10 Essential (primary) hypertension; M85.80 Other specified disorders of bone density and structure, unspecified site; E55.9 Vitamin D deficiency, unspecified
CPT/HCPCS: 36415; 80053; 80061; 82306; 82607; 82728; 82746; 83540; 83735; 83880; 84439; 84443; 85025; 85045

== ENCOUNTER → 2023-02-20 13:47 | Outpatient (REF) | payer MEDICARE, SELFPAY ==
[2022-05-04 12:53] VITALS: BP 108/62; BP 132/70; BMI 23.3
--- NOTE | 2023-02-20 13:50 | CA_ITS ---
Transthoracic Echocardiogram Patient (Last, First, Middle): Jocelynn Farr, Gender: Female Date of : 1940 Age: 82 Procedure Date: 02/20/2023 Procedure Type: Transthoracic Echocardiogram Location: OP Height: 157.48 cm Weight: 52.16 kg BSA: 1.51 m2 Heart Rate: bpm BP: 118 / 60 mmHg Artillery Officer: Referring MD: Davi Grande MD Deckhand Maintenance: Kana Garcia MD Symptoms: I25.5 - Ischemic cardiomyopathy Study Quality: Fair ECG Rhythm: Sinus Conclusions: - 1. Moderate to severe LV systolic dysfunction with LVEF of 30 35% grade 2 diastolic dysfunction 2. Moderate left atrial enlargement 3. Moderate to severe eccentric mitral regurgitation due to restricted posterior mitral leaflet 4. Upper limits of normal RV systolic pressure 5. Moderate pericardial effusion loculated near right atrium and right ventricle and subcostal views Findings Left Ventricle Normal left ventricular cavity size. There is normal left ventricular wall thickness. The left ventricular systolic function is moderate to severely decreased. The visually estimated ejection fraction is between 30-35%. Spectral Doppler is indicative of a pseudonormal filling pattern. E/E prime ratio is >15, consistent with elevated filling pressures. Evidence suggests grade II (moderate) diastolic dysfunction. Peak GLS is -7.9%, which is markedly reduced. Wall Motion Rest Echo Findings The inferoseptal wall, inferior wall, and inferolateral wall are akinetic. All other scored wall segments showed normal motion. Right Ventricle Normal right ventricular cavity size and systolic function. Atria The left atrium is moderately dilated. There is no evidence of interatrial shunt. The right atrium is mildly dilated. Aortic Valve There is mild calcification of the aortic valve. There is mild thickening of the aortic valve. There is no aortic valve stenosis. There is mild aortic valve regurgitation. Mitral Valve There is moderate anterior and posterior mitral leaflet thickening. The posterior mitral leaflet has restricted mobility. There is moderate to severe mitral valve regurgitation. The mitral regurgitation jet is directed posteriorly. There is no mitral valve stenosis. Pulmonic Valve The pulmonic valve was not well visualized. Tricuspid Valve Normal tricuspid valve structure. There is mild tricuspid valve regurgitation. Normal right atrial pressure. There is no evidence of pulmonary hypertension. Great Vessels All visible segments of the aorta are normal in size. The pulmonary artery was not well visualized. Venous The inferior vena cava is normal in size and collapses greater than 50% with inspiration. Pericardium/Pleural There is a moderate loculated pericardial effusion overlying the right ventricle and right atrium. Prior Study Comparison Changes noted compared to prior study dated: 12/06/2021. LV systolic function is worse. Mitral regurgitation appears to be moderately severe Measurements 2D Linear Measurements IVSd: 0.97 0.6-0.9/0.6-1.0 cm LVIDd: 5.29 3.9-5.3/4.2-5.9 cm LVIDd Index: 3.50 2.4-3.2/2.2-3.1 cm/m2 LVIDs: 4.60 2.0-3.6 cm LVPWd: 0.94 0.7-1.1 cm Ao Root: 2.80 2.1-3.5 cm LA Diam: 3.80 2.7-3.8/3.0-4.0 cm LAIDs Index: 2.52 1.5-2.3 cm/m2 LV Mass: 234.71 67-162/88-224 g LV Mass Index: 155.43 43-95/49-115 g/m2 LVOT Diam: 2.10 3.0+(-)1.3 cm 2D Systolic Function EF 4C: 31.50 >55% EF 2C: 33.50 >55% EF BiP: 31.70 >55% Mitral Valve MV Pk E: 1.19 MV PK A: 0.67 MV Decel Time: 125.00 E/A: 1.80 E'Lateral: 8.70 E'Medial: 4.13 E/E' Med: 28.80 E/E' Lat: 13.70 PHT: 37.00 MVA PHT: 5.95 Decel Iron: 9.54 MR Vol - PW Dopp: 54.75 MR VTI: 2.19 MR ERO: 25.00 MR Alias Noah: 0.38 MR RAD: 0.80 Aortic Valve AoV Pk Noah: 1.19 AoV Mn Noah: 0.80 AoV VTI: 0.28 AoV Pk Grad: 6.00 Aov Mn Grad: 3.00 AFUA Cont.VTI: 2.02 AI Pk Noah: 4.49 AI Iron: 5.78 LVOT LVOT Pk Noah: 0.63 LVOT Mn Noah: 0.42 LVOT VTI: 0.16 LVOT Pk Grad: 2.00 LVOT Mn Grad: 1.00 LVOT Diam: 2.10 LVOT Area: 3.46 Diastolic Function MV Pk E: 1.19 MV Pk A: 0.67 E/A: 1.80 E'Medial: 4.13 E/E' Med: 28.80 E' Laterial: 8.70 E/E' Lat: 13.70 Right Ventricle TAPSE (mm): 18.00 TVS' Noah: 8.00 Tricuspid Valve TR Pk Noah: 2.97 TR Pk Grad: 35.00 RA Press: 3.00 RVSP: 38.00 Great Vessels Aorta Ao Root-2D: 2.80 2.0-3.7 cm Ao Asc: 2.90 2.1-3.4 cm Pulmonary Valve PV Pk Noah: 0.77 Peak PV Grad: 2.00 Updated in Other Vendor System with Status of Final Kana Garcia MD electronically signed on 02/21/2023 6:41:20 PM with status of Final
== END ==
LOC: HO.CARD 13:47
PROVIDERS: PCP Internal Medicine; Visit Provider Internal Medicine
DX: I25.5 Ischemic cardiomyopathy (principal)
CPT/HCPCS: 93306

== ENCOUNTER → 2023-03-22 12:50 | Outpatient (BNVA) | payer MEDICARE, SELFPAY ==
[2022-05-04 12:53] VITALS: BP 108/62; BP 132/70; BMI 23.3
== END ==
PROVIDERS: PCP Internal Medicine; Referring Provider Internal Medicine; Visit Provider Internal Medicine
DX: I25.10 Atherosclerotic heart disease of native coronary artery without angina pectoris (principal); I25.5 Ischemic cardiomyopathy; I48.0 Paroxysmal atrial fibrillation; I34.0 Nonrheumatic mitral (valve) insufficiency; Z79.01 Long term (current) use of anticoagulants; Z79.02 Long term (current) use of antithrombotics/antiplatelets; Z79.899 Other long term (current) drug therapy
CPT/HCPCS: 99212

== ENCOUNTER 2023-04-04 10:25 | Outpatient (REF) | payer MEDICARE, SELFPAY ==
[2022-05-04 12:53] VITALS: BP 108/62; BP 132/70; BMI 23.3
[2023-04-04 12:03] LABS: B Type Natriuretic Peptide 260 pg/mL (<100)
[2023-04-04 12:10] LABS: Anion Gap 11 (12-20); Blood Urea Nitrogen 24 mg/dL (9-16); Calcium 9.6 mg/dL (8.4-10.2); Carbon Dioxide 27 mmol/L (22-29); Chloride 100 mmol/L (96-108); Estimated Glomerular Filt Rate > 60; Glucose Random 101 mg/dL (60-115); Potassium 4.4 mmol/L (3.3-5.1); Sodium 134 mmol/L (135-145)
== END 2023-04-04 10:26 | disposition home or self-care (01) ==
LOC: HO.HMGCLDS 10:25
PROVIDERS: PCP Internal Medicine; Visit Provider Internal Medicine
DX: I50.22 Chronic systolic (congestive) heart failure (principal); I25.5 Ischemic cardiomyopathy
CPT/HCPCS: 36415; 80048; 83880

== ENCOUNTER 2023-06-20 09:23 | Outpatient (AMB) | payer MEDICARE, SELFPAY ==
[2022-05-04 12:53] VITALS: BP 108/62; BP 132/70; BMI 23.3
[2023-06-20 09:25] VITALS: BP 130/50; PULSE 85; O2SAT 98; BMI 21.3
--- NOTE | 2023-06-20 09:25 | A.OFFPC_ITS ---
Vital Signs 06/20/23 09:25 Height 5 ft 2 in Weight 116 lb 4 oz BMI 21.3 BP 130/50 L Blood Pressure Location Lt brachial Position Sitting Pulse 85 Pulse Source Pulse Oximeter Pulse Oximetry (%) 98 Oxygen Delivery Method Room Air Intake Visit Reasons: CHF, Atrial fibrillation Allergies atorvastatin [Lipitor] Allergy (Unknown, Verified 06/20/23 09:26) Unknown lovastatin Allergy (Unknown, Verified 06/20/23 09:26) Unknown pneumococcal vaccine Allergy (Unknown, Verified 06/20/23 09:26) Unknown pravastatin Allergy (Unknown, Verified 06/20/23 09:26) Unknown rosuvastatin [Crestor] Allergy (Unknown, Verified 06/20/23 09:26) Unknown simvastatin Allergy (Unknown, Verified 06/20/23 09:26) unknown sertraline Adverse Reaction (Intermediate, Verified 06/20/23 09:26) sweaty Medication List - Last Reconciled 06/20/23 by Liborio Cast MD apixaban (Eliquis) 5 mg PO BID calcium carbonate (Calcium 500) 500 mg PO DAILY cholecalciferol (vitamin D3) 10 mcg PO DAILY clopidogrel 75 mg PO DAILY ezetimibe 10 mg PO DAILY famotidine 20 mg PO BEDTIME fexofenadine (Bianca Allergy) 180 mg PO DAILY glucosamine HCl 750 mg PO DAILY ipratropium bromide 2 sprays intranasal BID-TID PRN lisinopril 2.5 mg PO DAILY metoprolol succinate ER 50 mg PO DAILY multivitamin 1 tab PO DAILY rosuvastatin (Crestor) 20 mg PO BEDTIME spironolactone 12.5 mg (1/2 x 25 mg) PO DAILY torsemide 20 mg PO DAILY PRN Tobacco use date assessed: 03/07/23 Fall risk assessment: No Falls in past year Last assessed Fall Risk: 06/20/23 Dental Screening Dental Screen Date: 06/20/23 Did you have a dental visit in the last 12 months?: Yes Did you have a dental problem in the last 6 months where you did not have access to dental care?: No Was dental information given to patient?: Patient has dentist HPI CHF, Atrial fibrillation HPI Details 83-year-old female with coronary artery disease GERD hypertension hypercholesterolemia ischemic cardiomyopathy generalized anxiety disorder congestive heart failure and atrial fibrillation last seen in February 2023. Patient comes in for follow-up. Patient was in the Urgent Center in March for a rash and was reassured. Patient follows up with Cardiology in February 2023 multivessel CAD echocardiogram with left ejection fraction 30 35% with moderate diastolic dysfunction on diuretics intermittently continuing with beta-rubén placed on Entresto start on Farxiga then spironolactone continue with anticoagulation. placed on farxiga 190$ placed on spironolactone. [facility] Medical History (Updated 06/20/23 @ 09:49 by Liborio Cast MD) Atherosclerotic cardiovascular disease Breast cancer screening by mammogram Congestive heart failure Diverticulosis Hemorrhoids Hypercholesterolemia Hypertension Ischemic cardiomyopathy Nonrheumatic mitral valve regurgitation Overweight (BMI 25.0-29.9) PAF (paroxysmal atrial fibrillation) Thyroid nodule Surgical History History of cardiac catheterization (~10/18/21) History of cataract surgery History of colonoscopy History of surgery Family History Father Hypertension Stroke CVD (cardiovascular disease) Mother Hypertension Stroke Social History (Updated 03/22/23 @ 13:01 by Lesia Campos) Household Members: Spouse Housing: House Alcohol intake: never Patient Tobacco Use Status: Former Tobacco user e-Cigarette/Vaping Use: Never Used Second Hand Smoke Exposure: No service: No Current occupational status: retired Cognitive needs: No Hearing needs: No Vision needs: Yes Questionnaire PHQ-9 Over the last 2 weeks, how often have you been bothered by any of the following problems? 1. Little interest or pleasure in doing things: several days 2. Feeling down, depressed, or hopeless: several days 3. Trouble falling or staying asleep, or sleeping too much: not at all 4. Feeling tired or having little energy: not at all 5. Poor appetite or overeating: several days 6. Feeling bad about yourself - or that you are a failure or have let yourself or your family down: not at all 7. Trouble concentrating on things, such as reading the newspaper or watching television: not at all 8. Moving or speaking so slowly that other people could have noticed. Or the opposite - being so fidgety or restless that you have been moving around a lot more than usual: not at all 9. Thoughts that you would be better off or of hurting yourself in some way: not at all Total score: 3 Depression Screening Interpretation: Positive Source: Developed by Drs. Luis Ruiz, Santosh Larry and colleagues, with an educational hiren from [employer]. Thrive Questionnaire Date Thrive assessed: 12/19/22 AUDIT C Alcohol Use Questionnaire (AUDIT-C) 1. How often do you have a drink containing alcohol?: 4 or more times a week 2. How many drinks containing alcohol do you have on a typical day when you are drinking?: 1 or 2 3. How often do you have six or more drinks on one occasion?: Never Total Score: 4 Score Reviewed/Action Taken: No TIMMY-7 AMB Questionnaire TIMMY-7 Date TIMMY - 7 assessed: 12/19/22 Source: Developed by Drs. Luis Ruiz, Santosh Larry and colleagues, with an educational hiren from [employer]. Physical exam (Primary Care) Vital Signs: Last Vital Signs Pulse 85 06/20/23 09:25 BP 130/50 L 06/20/23 09:25 Pulse Ox 98 06/20/23 09:25 Oxygen Delivery Method Room Air 06/20/23 09:25 BMI result Body Mass Index 21.3 Tobacco/Smoking Status: Tobacco use Status Tobacco use date assessed 03/07/23 06/20/23 09:32 Patient Tobacco Use Status Former Tobacco user 06/20/23 09:32 Tobacco use type 03/22/23 13:15 e-Cigarette/Vaping Use Never Used 06/20/23 09:32 PHQ-9: PHQ-9 Score PHQ-9: Total score 4 06/20/23 09:32 Depression Screening Interpretation: Positive Thrive Assessment: Date of Thrive Assessment Date Thrive assessed 12/19/22 06/20/23 09:32 Const General: alert; No acute distress Eyes Conjunctivae: conjunctivae normal Resp Auscultation: clear to auscultation bilaterally Cardio Rate: regular rate Rhythm: regular rhythm GI Inspection: Yes normal to inspection Extrem General: Yes normal to inspection and No edema Assessment and Plan Assessment & Plan (1) PAF (paroxysmal atrial fibrillation): Code(s): I48.0 - Paroxysmal atrial fibrillation Plan: Continue with anticoagulation with Eliquis (2) Ischemic cardiomyopathy: Code(s): I25.5 - Ischemic cardiomyopathy Plan: Patient follows up with Cardiology (3) Coronary artery disease: Code(s): I25.10 - Atherosclerotic heart disease of [place] coronary artery without angina pectoris Plan: Control the cholesterol, weight, blood pressure continue with aspirin as well as clopidogrel (4) GERD (gastroesophageal reflux disease): Code(s): K21.9 - Gastro-esophageal reflux disease without esophagitis Plan: Avoid the foods that causes that usually spicy foods, tomato products, juices, coffee, soda and foods that your sensitive to. After eating do not lie down, allow 3-4 hours before in lie down. And keep the head of bed above 30 degrees to avoid the acid from going up. On famotidine 20 mg at bedtime (5) Generalized anxiety disorder: Code(s): F41.1 - Generalized anxiety disorder Plan: Stable (6) Hypercholesterolemia: Code(s): E78.00 - Pure hypercholesterolemia, unspecified Plan: Avoid fried foods, chicken skin, eggs, butter margarine, pastries and meat. Be it pork or beef they have a lot of cholesterol patient is on rosuvastatin 20 mg once a day Zetia 10 mg once a day patient had blood work done in January 2023 (7) Hypertension: Code(s): I10 - Essential (primary) hypertension Qualifiers: Hypertension type: essential hypertension Qualified Code(s): I10 - Essential (primary) hypertension Plan: Continue with blood pressure medication. Decrease salt intake and exercise patient is on lisinopril 2.5 mg once a day metoprolol 50 mg once a day spironolactone 12.5 mg once a day (8) Osteopenia: Comment: Bone density 2015, 03/2021 osteopenia Code(s): M85.80 - Other specified disorders of bone density and structure, unspecified site Plan: March 2021 last bone density ostium Orders: Orders B Type Natriuretic Peptide 3 Months I50.9 - Heart failure, unspecified Comprehensive Met. Panel 3 Months I50.9 - Heart failure, unspecified Magnesium 3 Months I50.9 - Heart failure, unspecified Phosphorus 3 Months I50.9 - Heart failure, unspecified Free T4 (Free Thyroxine) 3 Months I50.9 - Heart failure, unspecified Thyroid Stimulating Hormone 3 Months I50.9 - Heart failure, unspecified Complete Blood Count Auto Diff 3 Months I50.9 - Heart failure, unspecified Medications: New ipratropium bromide administer into each nostril 2 sprays intranasal BID-TID PRN 30 mL 0RF allergy symptoms Discontinued fluticasone propionate 50 mcg/actuation (Allergy Relief (fluticasone)) administer into each nostril Discontinued Reason: Patient Refused 2 sprays intranasal DAILY 16 grams 5RF Coding Level of Care Code Est Pt Level 4 (51926) Diagnoses PAF (paroxysmal atrial fibrillation) I48.0 Ischemic cardiomyopathy I25.5 Coronary artery disease I25.10 GERD (gastroesophageal reflux disease) K21.9 Generalized anxiety disorder F41.1 Hypercholesterolemia E78.00 Hypertension I10 Hypertension type: essential hypertension Osteopenia M85.80 Additional Codes PHQ-9 - 67058 - PHQ-9 Billing: Y ([id number])
== END 2023-06-20 10:08 | disposition home or self-care (01) ==
PROVIDERS: Visit Provider Internal Medicine
DX: I48.0 Paroxysmal atrial fibrillation (principal); K21.9 Gastro-esophageal reflux disease without esophagitis; I10 Essential (primary) hypertension; I25.5 Ischemic cardiomyopathy; I25.10 Atherosclerotic heart disease of native coronary artery without angina pectoris; F41.1 Generalized anxiety disorder; E78.00 Pure hypercholesterolemia, unspecified; M85.80 Other specified disorders of bone density and structure, unspecified site
CPT/HCPCS: 99214

== ENCOUNTER 2023-08-22 10:42 | Outpatient (REF) | payer MEDICARE, SELFPAY ==
[2022-05-04 12:53] VITALS: BP 108/62; BP 132/70; BMI 23.3
[2023-08-22 10:59] LABS: MANUAL DIFF FLAG NO
[2023-08-22 11:56] LABS: Basophils Absolute Auto 0.1 X10*3/uL (0.0-0.2); Basophils Percent Auto 0.7 % (0-2); Eosinophils Absolute Auto 0.1 X10*3/uL (0.0-0.4); Eosinophils Percent Auto 0.8 % (0-4); Hematocrit 35.2 % (37.0-47.0); Hemoglobin 11.3 g/dl (12.0-16.0); Imm Gran Abs Auto 0.04 X10*3/uL (0.00-0.03); Imm Gran Pct Auto 0.4 % (0.0-0.4); Lymphocytes Absolute Auto 1.1 X10*3/uL (1.2-4.9); Lymphocytes Percent Auto 10.3 % (20-40); Mean Corpuscular HGB Conc 32.1 g/dl (31.0-35.0); Mean Corpuscular Hemoglobin 28.3 pg (27.0-33.0); Mean Corpuscular Volume 88.2 fL (80.0-98.0); Mean Platelet Volume 10.5 fL (9.4-12.3); Monocytes Absolute Auto 1.1 X10*3/uL (0.1-1.2); Monocytes Percent Auto 10.8 % (2-11); Neutrophils Absolute Auto 8.2 x10*3/uL (2.0-8.3); Platelet Count 298 X10*3/uL (160-400); Red Blood Count 3.99 X10*6/uL (4.20-5.50); Red Cell Distribution Width 14.4 % (11.0-16.0); White Blood Count 10.6 X10*3/uL (4.8-10.8)
[2023-08-22 12:14] LABS: B Type Natriuretic Peptide 712 pg/mL (<100)
[2023-08-22 12:35] LABS: Alanine Aminotransferase 17 U/L (0-31); Albumin Level 4.3 g/dL (3.5-5.0); Alkaline Phosphatase 86 U/L (39-117); Anion Gap 14 (12-20); Aspartate Amino Transferase 29 U/L (5-31); Bilirubin Total 0.4 mg/dL (0.0-1.0); Blood Urea Nitrogen 19 mg/dL (9-16); Calcium 9.8 mg/dL (8.4-10.2); Carbon Dioxide 24 mmol/L (22-29); Chloride 100 mmol/L (96-108); Estimated Glomerular Filt Rate > 60; Glucose Random 93 mg/dL (60-115); Magnesium 2.2 mg/dL (1.6-2.6); Phosphorus 4.1 mg/dL (2.7-4.5); Potassium 4.9 mmol/L (3.3-5.1); Sodium 133 mmol/L (135-145); Total Protein 6.8 g/dL (6.5-8.0)
[2023-08-22 12:56] LABS: Free T4 (Free Thyroxine) 0.93 ng/dL (0.71-1.85); Thyroid Stimulating Hormone 2.63 uIU/mL (0.32-4.0)
== END 2023-08-22 10:43 | disposition home or self-care (01) ==
LOC: HO.LAB 10:42
PROVIDERS: PCP Internal Medicine; Visit Provider Internal Medicine
DX: I50.9 Heart failure, unspecified (principal)
CPT/HCPCS: 36415; 80053; 83735; 83880; 84100; 84439; 84443; 85025

== ENCOUNTER 2023-09-19 12:34 | Outpatient (AMB) | payer MEDICARE, SELFPAY ==
[2022-05-04 12:53] VITALS: BP 108/62; BP 132/70; BMI 23.3
--- NOTE | 2023-09-19 12:43 | A.OFFVIS_ITS ---
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: No Accompanied by: Family/Other Allergies atorvastatin [Lipitor] Allergy (Unknown, Verified 09/19/23 12:48) Unknown lovastatin Allergy (Unknown, Verified 09/19/23 12:48) Unknown pneumococcal vaccine Allergy (Unknown, Verified 09/19/23 12:48) Unknown pravastatin Allergy (Unknown, Verified 09/19/23 12:48) Unknown simvastatin Allergy (Unknown, Verified 09/19/23 12:48) unknown sertraline Adverse Reaction (Intermediate, Verified 09/19/23 12:48) sweaty Medication List - Last Reconciled 09/19/23 by Davi Grande MD apixaban (Eliquis) 5 mg PO BID calcium carbonate (Calcium 500) 500 mg PO DAILY cholecalciferol (vitamin D3) 10 mcg PO DAILY clopidogrel 75 mg PO DAILY ezetimibe 10 mg PO DAILY famotidine 20 mg PO BEDTIME fexofenadine (Bianca Allergy) 180 mg PO DAILY glucosamine HCl 750 mg PO DAILY ipratropium bromide 2 sprays intranasal BID-TID PRN lisinopril 2.5 mg PO DAILY metoprolol succinate ER 50 mg PO DAILY multivitamin 1 tab PO DAILY rosuvastatin (Crestor) 20 mg PO BEDTIME spironolactone 12.5 mg (1/2 x 25 mg) PO DAILY torsemide 20 mg PO DAILY PRN HPI HPI Comments History of Present Illness Details Jocelynn returns for follow up regarding coronary disease and cardiomyopathy. To recall, in September 2021, she had inferior STEMI and transferred to [facility]. She underwent cardiac catheterization that showed an occluded RCA but as the region was infarcted as well as because of late presentation and without any clear chest pain, she did not getting any interventions. Subsequently, she underwent detailed workup including echocardiogram, cardiac MRI among others and she was deemed to be on medical therapy only. Cardiac surgery thought that she was high cardiac risk. No new complaints. She states she is feeling fine. Just has a cold. Otherwise, taking diuretics only intermittently. Seems to be getting along. [facility] Medical History (Updated 06/20/23 @ 09:49 by Liborio Cast MD) Breast cancer screening by mammogram Nonrheumatic mitral valve regurgitation PAF (paroxysmal atrial fibrillation) Ischemic cardiomyopathy Atherosclerotic cardiovascular disease Congestive heart failure Overweight (BMI 25.0-29.9) Thyroid nodule Hemorrhoids Diverticulosis Hypercholesterolemia Hypertension Surgical History History of cardiac catheterization (~10/18/21) History of colonoscopy History of cataract surgery History of surgery Family History Father Hypertension Stroke CVD (cardiovascular disease) Mother Hypertension Stroke Social History Household Members: Spouse Housing: House Alcohol intake: never Patient Tobacco Use Status: Former Tobacco user e-Cigarette/Vaping Use: Never Used Second Hand Smoke Exposure: No service: No Current occupational status: retired Cognitive needs: No Hearing needs: No Vision needs: Yes Review of Systems Const Denies weakness ENT Denies dizziness Card Denies chest pain, Denies chest pain with activity, Denies syncope, Denies rapid heart rate, Denies pedal edema, Denies edema, Denies leg edema, Denies ligh theadedness, Denies palpitations, Denies dyspnea, Denies dyspnea on exertion and Denies orthopnea Resp Denies cough, Denies dyspnea and Denies dyspnea on exertion GI Denies hematochezia and Denies change in stool character Musc Denies abnormal gait, Denies muscle cramps, Denies muscle weakness, Denies numbness, Denies radiating pain into limb and Denies tingling Neuro Denies abnormal gait, Denies dizziness, Denies syncope, Denies numbness, Denies tingling and Denies weakness Endo Denies palpitations Physical Exam Vital Signs: Last Vital Signs Pulse 81 09/19/23 12:44 BP 136/52 L 09/19/23 12:44 BMI result Body Mass Index 21.7 Const General: comfortable and no acute distress Orientation/consciousness: patient oriented x3 HEENT Other: Unremarkable Head: Yes normal to inspection Neck Neck: Yes normal visual inspection Chest Chest palpation & inspection: normal inspection of the chest Resp Auscultation: clear to auscultation bilaterally Cardio Palpation: normal PMI Heart sounds: S1 normal heart sound present, S2 normal heart sound present, no gallops, no murmurs and no rubs GI Palpation (GI): Soft to palpation Back/Spine/Pelvis Other: unremarkable Skin General skin exam: no rashes or lesions noted Neuro General: patient oriented x3 Extrem General: Yes normal to inspection Psych Mental Status: mental status grossly normal Assessment & Plan Assessment & Plan (1) Atherosclerotic cardiovascular disease: Code(s): I25.10 - Atherosclerotic heart disease of [place] coronary artery without angina pectoris Plan: Per cardiac catheterization, occluded proximal RCA, collaterals from the left system. Heavily calcified left main and proximal LAD. 70% ostial left main stenosis. LAD with mild diffuse disease. Diagonal also had 90% ostial valdo nosis. Overall, multivessel CAD. Thought to be high risk for CABG as well as for PCI of left main. Remains on Plavix, beta-blockers and statin/Zetia. (2) Ischemic cardiomyopathy: Code(s): I25.5 - Ischemic cardiomyopathy Plan: Echocardiogram with LVEF of 30-35%. Moderate diastolic dysfunction. Clinically, no heart failure symptoms or signs. She is taking diuretics intermittently. Continue beta-blockers, lisinopril, spironolactone. There is a cost issue with Entresto and Farxiga-too expensive. (3) Nonrheumatic mitral valve regurgitation: Code(s): I34.0 - Nonrheumatic mitral (valve) insufficiency Plan: Cardiac MRI with postero-medial papillary muscle infarction, moderate mitral regurgitation, posteriorly directed. Related to underlying CAD. In the most recent echocardiogram, moderate to severe eccentric mitral regurgitation. No clear audible murmur. Can follow-up on echocardiograms. (4) PAF (paroxysmal atrial fibrillation): Code(s): I48.0 - Paroxysmal atrial fibrillation Plan: Detected during [facility] hospitalization. Continue Eliquis. Plan Discussed with daughter who came for appointment. Coding Level of Care Code Est Pt Level 4 (32237) Diagnoses Atherosclerotic cardiovascular disease I25.10 Ischemic cardiomyopathy I25.5 Nonrheumatic mitral valve regurgitation I34.0 PAF (paroxysmal atrial fibrillation) I48.0
[2023-09-19 12:44] VITALS: BP 136/52; PULSE 81; BMI 21.7
== END 2023-09-19 13:13 | disposition home or self-care (01) ==
PROVIDERS: Visit Provider Internal Medicine
DX: I25.10 Atherosclerotic heart disease of native coronary artery without angina pectoris (principal); I25.5 Ischemic cardiomyopathy; I34.0 Nonrheumatic mitral (valve) insufficiency; I48.0 Paroxysmal atrial fibrillation
CPT/HCPCS: 99214

== ENCOUNTER → 2023-09-19 12:34 | Outpatient (BNVA) | payer MEDICARE, SELFPAY ==
[2022-05-04 12:53] VITALS: BP 108/62; BP 132/70; BMI 23.3
== END ==
PROVIDERS: Visit Provider Internal Medicine
DX: I25.10 Atherosclerotic heart disease of native coronary artery without angina pectoris (principal); I25.5 Ischemic cardiomyopathy; I34.0 Nonrheumatic mitral (valve) insufficiency; I48.0 Paroxysmal atrial fibrillation
CPT/HCPCS: 99212

== ENCOUNTER 2023-09-20 09:45 | Outpatient (AMB) | payer MEDICARE, SELFPAY ==
[2022-05-04 12:53] VITALS: BP 108/62; BP 132/70; BMI 23.3
[2023-09-20 09:48] VITALS: BP 142/70; PULSE 77; O2SAT 98; BMI 21.5
--- NOTE | 2023-09-20 09:48 | MHC.PC.OV ---
Vital Signs 09/20/23 09:48 Height 5 ft 2 in Weight 117 lb 6 oz BMI 21.5 BP 142/70 H Blood Pressure Location Lt brachial Position Sitting Pulse 77 Pulse Source Pulse Oximeter Pulse Oximetry (%) 98 Oxygen Delivery Method Room Air Intake Visit Reasons: CHF, CAD, atrial fib [employer]ing [employer]er[employer] Supervisor Required: No Accompanied by: Self / Same As Patient Allergies atorvastatin [Lipitor] Allergy (Unknown, Verified 09/20/23 10:01) Unknown lovastatin Allergy (Unknown, Verified 09/20/23 10:01) Unknown pneumococcal vaccine Allergy (Unknown, Verified 09/20/23 10:01) Unknown pravastatin Allergy (Unknown, Verified 09/20/23 10:01) Unknown sertraline Adverse Reaction (Intermediate, Verified 09/20/23 10:01) sweaty Medication List - Last Reconciled 09/20/23 by Liborio Cast MD apixaban (Eliquis) 5 mg PO BID calcium carbonate (Calcium 500) 500 mg PO DAILY cholecalciferol (vitamin D3) 10 mcg PO DAILY clopidogrel 75 mg PO DAILY doxycycline hyclate 100 mg PO BID ezetimibe 10 mg PO DAILY famotidine 20 mg PO BEDTIME fexofenadine (Bianca Allergy) 180 mg PO DAILY glucosamine HCl 750 mg PO DAILY lisinopril 2.5 mg PO DAILY metoprolol succinate ER 50 mg PO DAILY multivitamin 1 tab PO DAILY rosuvastatin (Crestor) 20 mg PO BEDTIME spironolactone 12.5 mg (1/2 x 25 mg) PO DAILY torsemide 20 mg PO DAILY PRN Tobacco use date assessed: 03/07/23 Fall risk assessment: No Falls in past year Last assessed Fall Risk: 09/20/23 Dental Screening Dental Screen Date: 09/20/23 Did you have a dental visit in the last 12 months?: Yes Did you have a dental problem in the last 6 months where you did not have access to dental care?: No Was dental information given to patient?: Patient has dentist HPI CHF, CAD, atrial fib HPI Details 83-year-old female with atrial fibrillation ischemic cardiomyopathy coronary artery disease GERD generalized anxiety disorder atrial fibrillation hypertension hypercholesterolemia last seen in May 2023. Patient has followed up with Cardiology in August. Diagnosis of ski me cardiomyopathy with an ejection fraction of 30 35% with moderate diastolic dysfunction no heart failure symptoms diuretics as needed on beta-blockers lisinopril and spironolactone. Cost issue Entresto and Farxiga cardiac MRI showing posteromedial papillary muscle infarction moderate mitral regurg atrial fibrillation. cough 1 week covid negative. PAtient was informed of the BNP but just saw cardio. [facility] Medical History (Updated 09/20/23 @ 10:47 by Liborio Cast MD) Breast cancer screening by mammogram Nonrheumatic mitral valve regurgitation PAF (paroxysmal atrial fibrillation) Ischemic cardiomyopathy Atherosclerotic cardiovascular disease Congestive heart failure Overweight (BMI 25.0-29.9) Thyroid nodule Hemorrhoids Diverticulosis Hypercholesterolemia Hypertension Surgical History History of cardiac catheterization (~10/18/21) History of colonoscopy History of cataract surgery History of surgery Family History Father Hypertension Stroke CVD (cardiovascular disease) Mother Hypertension Stroke Social History Household Members: Spouse Housing: House Alcohol intake: never Patient Tobacco Use Status: Former Tobacco user Tobacco use type: Cigarette e-Cigarette/Vaping Use: Never Used Second Hand Smoke Exposure: No service: No Current occupational status: retired Cognitive needs: No Hearing needs: No Vision needs: Yes Questionnaire PHQ-9 Over the last 2 weeks, how often have you been bothered by any of the following problems? 1. Little interest or pleasure in doing things: several days 2. Feeling down, depressed, or hopeless: several days 3. Trouble falling or staying asleep, or sleeping too much: not at all 4. Feeling tired or having little energy: not at all 5. Poor appetite or overeating: several days 6. Feeling bad about yourself - or that you are a failure or have let yourself or your family down: not at all 7. Trouble concentrating on things, such as reading the newspaper or watching television: not at all 8. Moving or speaking so slowly that other people could have noticed. Or the opposite - being so fidgety or restless that you have been moving around a lot more than usual: not at all 9. Thoughts that you would be better off or of hurting yourself in some way: not at all Total score: 3 Depression Screening Interpretation: Positive Depression Screening Done: Yes Source: Developed by Drs. Luis Ruiz, Santosh Larry and colleagues, with an educational hiren from [employer]. Thrive Questionnaire Date Thrive assessed: 12/19/22 AUDIT C Alcohol Use Questionnaire (AUDIT-C) 1. How often do you have a drink containing alcohol?: 4 or more times a week 2. How many drinks containing alcohol do you have on a typical day when you are drinking?: 1 or 2 3. How often do you have six or more drinks on one occasion?: Never Total Score: 4 Score Reviewed/Action Taken: No TIMMY-7 AMB Questionnaire TIMMY-7 Date TIMMY - 7 assessed: 12/19/22 Source: Developed by Drs. Luis Ruiz, Jenny Trujillo, Santosh Meadows and colleagues, with an educational hiren from [employer]. Physical exam (Primary Care) Vital Signs: Last Vital Signs Pulse 77 09/20/23 09:48 BP 142/70 H 09/20/23 09:48 Pulse Ox 98 09/20/23 09:48 Oxygen Delivery Method Room Air 09/20/23 09:48 BMI result Body Mass Index 21.5 Tobacco/Smoking Status: Tobacco use Status Tobacco use date assessed 03/07/23 09/20/23 09:49 Patient Tobacco Use Status Former Tobacco user 09/20/23 09:49 Tobacco use type Cigarette 09/20/23 09:49 e-Cigarette/Vaping Use Never Used 09/20/23 09:49 PHQ-9: PHQ-9 Score PHQ-9: Total score 3 09/20/23 09:58 Depression Screening Interpretation: Positive Thrive Assessment: Date of Thrive Assessment Date Thrive assessed 12/19/22 09/20/23 09:49 Const General: alert; No acute distress Eyes Conjunctivae: conjunctivae normal Resp Auscultation: clear to auscultation bilaterally Cardio Rate: regular rate Rhythm: regular rhythm GI Inspection: Yes normal to inspection Extrem General: Yes normal to inspection and No edema Assessment and Plan Assessment & Plan (1) Hypertension: Code(s): I10 - Essential (primary) hypertension Qualifiers: Hypertension type: essential hypertension Qualified Code(s): I10 - Essential (primary) hypertension Plan: Continue with blood pressure medication. Decrease salt intake and exercise patient is on lisinopril 2.5 mg metoprolol 50 mg spironolactone 12.5 mg in torsemide as needed (2) Hypercholesterolemia: Code(s): E78.00 - Pure hypercholesterolemia, unspecified Plan: Avoid fried foods, chicken skin, eggs, butter margarine, pastries and meat. Be it pork or beef they have a lot of cholesterol LDL goal of less than January last blood work (3) Coronary artery disease: Code(s): I25.10 - Atherosclerotic heart disease of marshall coronary artery without angina pectoris Plan: Control the cholesterol, weight, blood pressure, diabetes patient on anticoagulation (4) Ischemic cardiomyopathy: Code(s): I25.5 - Ischemic cardiomyopathy Plan: Patient being followed up by Cardiology continuing with present medication (5) Congestive heart failure: Comment: Congestive heart failure with reduced ejection fraction Code(s): I50.9 - Heart failure, unspecified Plan: Weigh daily, on diuretics as needed did note BNP to be elevated last blood work (6) PAF (paroxysmal atrial fibrillation): Code(s): I48.0 - Paroxysmal atrial fibrillation Plan: Continue with anticoagulation (7) Bronchitis: Code(s): J40 - Bronchitis, not specified as acute or chronic Orders: Orders Phosphorus 3 Months I10 - Essential (primary) hypertension Comprehensive Met. Panel 3 Months I10 - Essential (primary) hypertension Complete Blood Count Auto Diff 3 Months I10 - Essential (primary) hypertension Magnesium 3 Months I10 - Essential (primary) hypertension Ferritin 3 Months I10 - Essential (primary) hypertension IRON PROFILE 3 Months I10 - Essential (primary) hypertension Reticulocyte Count 3 Months I10 - Essential (primary) hypertension Vitamin B12 and Folate 3 Months I10 - Essential (primary) hypertension Medications: New doxycycline hyclate 100 mg PO BID 14 caps 0RF J40 - Bronchitis, not specified as acute or chronic Coding Level of Care Code Est Pt Level 4 (43944) Diagnoses Essential hypertension I10 Hypertension type: essential hypertension Hypercholesterolemia E78.00 Coronary artery disease I25.10 Ischemic cardiomyopathy I25.5 Congestive heart failure I50.9 PAF (paroxysmal atrial fibrillation) I48.0 Bronchitis J40 Additional Codes PHQ-9 - 73757 - PHQ-9 Billing: ([id number])
== END 2023-09-20 10:56 | disposition home or self-care (01) ==
PROVIDERS: PCP Internal Medicine; Visit Provider Internal Medicine
DX: I11.0 Hypertensive heart disease with heart failure (principal); I50.9 Heart failure, unspecified; I48.0 Paroxysmal atrial fibrillation; E78.00 Pure hypercholesterolemia, unspecified; I25.10 Atherosclerotic heart disease of native coronary artery without angina pectoris; I25.5 Ischemic cardiomyopathy; J40 Bronchitis, not specified as acute or chronic
CPT/HCPCS: 99214

== ENCOUNTER 2023-12-19 07:36 | Outpatient (REF) | payer MEDICARE, SELFPAY ==
[2022-05-04 12:53] VITALS: BP 108/62; BP 132/70; BMI 23.3
[2023-12-19 10:17] LABS: MANUAL DIFF FLAG NO
[2023-12-19 10:33] LABS: Basophils Absolute Auto 0.1 X10*3/uL (0.0-0.2); Basophils Percent Auto 1.1 % (0-2); Eosinophils Absolute Auto 0.1 X10*3/uL (0.0-0.4); Eosinophils Percent Auto 2.1 % (0-4); Hematocrit 38.2 % (37.0-47.0); Hemoglobin 12.5 g/dl (12.0-16.0); Imm Gran Abs Auto 0.03 X10*3/uL (0.00-0.03); Imm Gran Pct Auto 0.5 % (0.0-0.4); Immature Retic Fraction 9.1 % (3.0-15.9); Lymphocytes Absolute Auto 1.3 X10*3/uL (1.2-4.9); Lymphocytes Percent Auto 19.6 % (20-40); Mean Corpuscular HGB Conc 32.7 g/dl (31.0-35.0); Mean Corpuscular Hemoglobin 29.6 pg (27.0-33.0); Mean Corpuscular Volume 90.5 fL (80.0-98.0); Mean Platelet Volume 10.9 fL (9.4-12.3); Monocytes Absolute Auto 0.8 X10*3/uL (0.1-1.2); Monocytes Percent Auto 11.4 % (2-11); Neutrophils Absolute Auto 4.3 x10*3/uL (2.0-8.3); Neutrophils Percent Auto 65.3 % (45-73); Platelet Count 302 X10*3/uL (160-400); Red Blood Count 4.22 X10*6/uL (4.20-5.50); Red Cell Distribution Width 14.8 % (11.0-16.0); Reticulocyte Percent 1.4 % (0.5-1.8); White Blood Count 6.6 X10*3/uL (4.8-10.8)
[2023-12-19 11:34] LABS: Alanine Aminotransferase 20 U/L (0-31); Albumin Level 4.2 g/dL (3.5-5.0); Alkaline Phosphatase 80 U/L (39-117); Anion Gap 10 (12-20); Aspartate Amino Transferase 31 U/L (5-31); Bilirubin Total 0.4 mg/dL (0.0-1.0); Blood Urea Nitrogen 26 mg/dL (9-16); Calcium 10.2 mg/dL (8.4-10.2); Carbon Dioxide 30 mmol/L (22-29); Chloride 101 mmol/L (96-108); Estimated Glomerular Filt Rate > 60; Ferritin 70 ng/mL (10-250); Glucose Random 85 mg/dL (60-115); Iron 88 mcg/dL (30-160); Magnesium 2.2 mg/dL (1.6-2.6); Percent Iron Saturation 28 % (15-50); Potassium 4.3 mmol/L (3.3-5.1); Sodium 137 mmol/L (135-145); Total Iron Binding Capacity 316 mcg/dL (228-428); Total Protein 6.7 g/dL (6.5-8.0); Unsaturated Iron Binding 228 ug/dL
[2023-12-19 17:04] LABS: Folate 13.4 ng/mL (> or = 4.0)
[2023-12-20 15:39] LABS: Vitamin B12 1316 pg/mL (200-900)
== END 2023-12-19 07:37 | disposition home or self-care (01) ==
LOC: HO.HMGCLDS 07:36
PROVIDERS: PCP Internal Medicine; Visit Provider Internal Medicine
DX: Z13.89 Encounter for screening for other disorder (principal)
CPT/HCPCS: 36415; 80053; 82607; 82728; 82746; 83540; 83735; 84100; 85025; 85045

== ENCOUNTER 2023-12-19 22:40 | Emergency (ER) | payer MEDICARE, SELFPAY ==
[2022-05-04 12:53] VITALS: BP 108/62; BP 132/70; BMI 23.3
--- NOTE | 2023-12-19 | ECG_ITS ---
Test Reason : Abd pain, prev NSTEMI Blood Pressure : / mmHG Vent. Rate : 092 BPM Atrial Rate : 092 BPM P-R Int : 160 ms QRS Dur : 090 ms QT Int : 362 ms P-R-T Axes : 068 021 -87 degrees QTc Int : 447 ms Sinus rhythm with frequent Premature ventricular complexes and Fusion complexes Septal infarct (cited on or before 16-OCT-2021) Cannot rule out Inferior infarct (cited on or before 16-OCT-2021) Abnormal ECG When compared with ECG of 12-DEC-2022 01:38, Premature ventricular complexes are now Present Referred By: William De Luna Electronically Signed By:KRISTINE HICKEY
[2023-12-19 22:42] VITALS: BP 145/60; PULSE 82; O2SAT 96
[2023-12-19 22:47] VITALS: BP 134/42; PULSE 92; RESP 16; TEMP 36.8; O2SAT 99; BMI 23.5
--- NOTE | 2023-12-19 23:22 | ED_ITS ---
HPI - Nausea/Vomiting/Diarrhea General Chief complaint: Nausea/Vomiting/Diarrhea Stated complaint: DIARRHEA,DIZZY Time Seen by Provider: 12/19/23 22:47 Source: patient Mode of arrival: ambulatory Limitations: no limitations History of Present Illness HPI Narrative: Patient's history of coronary artery disease non-STEMI CHF 2021 for nausea vomiting 2 times 1 bowel just prior to arrival with cold sweat. Patient at [place] sandwich at 17:00 no significant abdominal pain feeling much better now slightly nauseated no chest pain no fever no chills no shortness of breath Related Data Home Medications Medication Instructions Recorded Confirmed cholecalciferol (vitamin D3) 10 10 mcg PO DAILY 09/08/20 09/20/23 mcg (400 unit) capsule fexofenadine 180 mg tablet 180 mg PO DAILY 09/08/20 09/20/23 (Bianca Allergy) glucosamine HCl 750 mg tablet 750 mg PO DAILY 09/08/20 09/20/23 multivitamin 1 tab PO DAILY 09/08/20 09/20/23 calcium carbonate 500 mg calcium 500 mg PO DAILY 12/12/22 09/20/23 (1,250 mg) chewable tablet (Calcium 500) Previous Rx's Medication Instructions Recorded rosuvastatin 20 mg tablet (Crestor) 20 mg PO BEDTIME #90 tabs 02/08/23 torsemide 20 mg tablet 20 mg PO DAILY PRN sob #90 tabs 03/22/23 spironolactone 25 mg tablet 12.5 mg (1/2 x 25 mg) PO DAILY #90 05/10/23 tabs doxycycline hyclate 100 mg capsule 100 mg PO BID #14 caps 09/20/23 ezetimibe 10 mg tablet 10 mg PO DAILY #90 tabs 10/04/23 clopidogrel 75 mg tablet 75 mg PO DAILY #90 tabs 10/10/23 metoprolol succinate 50 mg 50 mg PO DAILY #90 tabs 10/10/23 tablet,extended release 24 hr apixaban 5 mg tablet (Eliquis) 5 mg PO BID #180 tabs 11/15/23 famotidine 20 mg tablet 20 mg PO BEDTIME #90 tabs 11/29/23 fluticasone propionate 50 2 spray intranasal DAILY #16 grams 11/30/23 mcg/actuation nasal spray,suspension (Flonase Allergy Relief) lisinopril 2.5 mg tablet 2.5 mg PO DAILY #90 tabs 11/30/23 ondansetron 4 mg disintegrating 4 mg PO Q6-8H PRN nausea and 12/20/23 tablet vomiting #7 tabs Allergies Allergy/AdvReac Type Severity Reaction Status Date / Time atorvastatin [Lipitor] Allergy Unknown Unknown Verified 09/20/23 10:01 lovastatin Allergy Unknown Unknown Verified 09/20/23 10:01 pneumococcal vaccine Allergy Unknown Unknown Verified 09/20/23 10:01 pravastatin Allergy Unknown Unknown Verified 09/20/23 10:01 sertraline AdvReac Intermediate sweaty Verified 09/20/23 10:01 Review of Systems 2 Review of Systems: Yes all other systems are reviewed and are negative [facility] Past Medical History Medical History Breast cancer screening by mammogram Nonrheumatic mitral valve regurgitation PAF (paroxysmal atrial fibrillation) Ischemic cardiomyopathy Atherosclerotic cardiovascular disease Congestive heart failure Overweight (BMI 25.0-29.9) Thyroid nodule Hemorrhoids Diverticulosis Hypercholesterolemia Hypertension Surgical History History of cardiac catheterization (~10/18/21) History of colonoscopy History of cataract surgery History of surgery Family History Family History Father Hypertension Stroke CVD (cardiovascular disease) Mother Hypertension Stroke Social History Social History Household Members: Spouse Housing: House Alcohol intake: never Patient Tobacco Use Status: Former Tobacco user Tobacco use type: Cigarette Smoked in Last 30 Days: No e-Cigarette/Vaping Use: Never Used Second Hand Smoke Exposure: No Use of substances other than those prescribed or required for medical reasons: No Advance Directives: No Advance Directives Information Provided: No service: No Current occupational status: retired Cognitive needs: No Hearing needs: No Vision needs: Yes Physical Exam 2 Vital Signs: Vital Signs: Last Vital Signs Temp 98.2 F 12/19/23 22:47 Pulse 97 12/20/23 00:00 Resp 18 12/20/23 00:00 BP 118/46 L 12/20/23 00:00 Pulse Ox 97 12/20/23 00:00 O2 Del Method Room Air 12/19/23 22:47 BMI result Body Mass Index 23.5 Appearance: Alert. Oriented X3. No acute distress. Eyes: No pallor or icterus ENT: Pharynx normal. Oral Mucosa moist Neck: Normal inspection. Neck supple. CVS: Normal heart rate and rhythm. Pulses normal. Respiratory: No respiratory distress. Equal air entry bilateral, Abdomen: Soft and nontender. Bowel sounds are present, no mass palpable, no CVA tenderness Skin: Skin warm and dry. Normal skin color. Normal skin turgor. Extremities: No lower extremity edema. No calf tenderness Neuro: Oriented X 3. Medications Administered Discontinued Medications Generic Name Dose Route Start Last Admin Trade Name Freq PRN Reason Stop Dose Admin Ondansetron HCl 4 mg 12/19/23 23:22 12/19/23 23:42 Ondansetron Odt 4 Mg Tab.Rapdis TRANSLINGU 12/19/23 23:23 4 mg ONCE ONE Administration Medical Decision Making Medical Decision Making [facility] Narrative: Gastroenteritis/viral syndrome/Clostridium perfringens Labs are stable patient felt much better during stay in the ER taking p.o. patient Differential Diagnosis Differential Diagnoses: The differential diagnosis associated with the presentation includes Lab Data [facility] Lab Attestation statement: I reviewed the patient's lab results. 12/19/23 23:37 12/19/23 23:37 Labs: Lab Results 12/19/23 12/19/23 Range/Units 23:37 23:57 WBC 19.0 H (4.8-10.8) X10*3/uL RBC 4.01 L (4.20-5.50) X10*6/uL Hgb 11.9 L (12.0-16.0) g/dl Hct 35.4 L (37.0-47.0) % MCV 88.3 (80.0-98.0) fL MCH 29.7 (27.0-33.0) pg MCHC 33.6 (31.0-35.0) g/dl RDW 14.4 (11.0-16.0) % Plt Count 293 (160-400) X10*3/uL MPV 10.2 (9.4-12.3) fL Immature Gran % (Auto) 0.5 H (0.0-0.4) % Neut % (Auto) 83.9 H (45-73) % Lymph % (Auto) 5.6 L (20-40) % [place] % (Auto) 9.3 (2-11) % Eos % (Auto) 0.4 (0-4) % Baso % (Auto) 0.3 (0-2) % Lymph # (Auto) 1.1 L (1.2-4.9) X10*3/uL [place] # (Auto) 1.8 H (0.1-1.2) X10*3/uL Eos # (Auto) 0.1 (0.0-0.4) X10*3/uL Baso # (Auto) 0.1 (0.0-0.2) X10*3/uL Abs Immat Gran (auto) 0.09 H (0.00-0.03) X10*3/uL Absolute Neuts (auto) 16.0 H (2.0-8.3) x10*3/uL Absolute Nucleated RBC 0.000 (0.0-0.012) X10*3/uL Nucleated RBC % (auto) 0.0 (0.0-0.2) /100WBC Smear Tech's Comments VERIFIED Sodium 133 L (135-145) mmol/L Potassium 4.4 (3.3-5.1) mmol/L Chloride 101 (96-108) mmol/L Carbon Dioxide 25 (22-29) mmol/L Anion Gap 11 L (12-20) BUN 26 H (9-16) mg/dL Creatinine 0.82 (0.5-1.4) mg/dL Estim Creat Clear Calc 41.8 Estimated GFR > 60 Random Glucose 101 (60-115) mg/dL Calcium 9.5 D (8.4-10.2) mg/dL Total Bilirubin 0.3 (0.0-1.0) mg/dL AST 30 (5-31) U/L ALT 18 (0-31) U/L Alkaline Phosphatase 83 (39-117) U/L Troponin I High Sens 4.3 D (<3.5-17.0) ng/L B-Natriuretic Peptide 315 H (<100) pg/mL Total Protein 6.6 (6.5-8.0) g/dL Albumin 4.2 (3.5-5.0) g/dL Urine Color Yellow Urine Appearance Clear Urine pH 6.5 (5.0-9.0) Ur Specific Anna 1.015 (1.005-1.025) Urine Protein Negative (Neg-Trace) mg/dL Urine Glucose (UA) Negative (Negative) mg/dL Urine Ketones Negative (Negative) mg/dL Urine Blood Negative (Negative) Urine Nitrite Negative (Negative) Ur Leukocyte Esterase Moderate (2+) H (Negative) Urine RBC 0-2 (0-2) /HPF Urine WBC 6-10 H (0-5) /HPF Ur Squamous Epith Cells 3-5 (0-2) /HPF Urine Bacteria None Seen (None Seen) Hyaline Casts 3-5 (0-2) /LPF COVID-19 ([place]) Negative (Negative) COVID-19 Clin Com See Note Influenza Type A (SUNG) Negative (Negative) Influenza Type B (SUNG) Negative (Negative) Influenza A & B Note See Note Independent Interpretation I performed an independent interpretation of an: EKG Interpretation: Normal sinus rhythm ventricular rate 92 beats per minute normal interval PVCs no acute ischemic changes no acute ischemia Discharge Plan Discharge Clinical Impression: Acute gastroenteritis Patient Disposition: Home, Self-Care Instructions: Gastroenteritis (ED) Additional Instructions: 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 which is self- limited and should get better Report to the ER if high fever or significant abdominal pain or symptoms continues Nausea medication as prescribed Prescriptions: New ondansetron 4 mg tablet,disintegrating 4 mg PO Q6-8H PRN (Reason: nausea and vomiting) Qty: 7 0RF No Action rosuvastatin [Crestor] 20 mg tablet 20 mg PO BEDTIME Qty: 90 3RF spironolactone 25 mg tablet 12.5 mg PO DAILY Qty: 90 3RF ezetimibe 10 mg tablet 10 mg PO DAILY Qty: 90 3RF clopidogrel 75 mg tablet 75 mg PO DAILY Qty: 90 3RF metoprolol succinate 50 mg tablet extended release 24 hr 50 mg PO DAILY Qty: 90 3RF Eliquis 5 mg tablet 5 mg PO BID Qty: 180 3RF famotidine 20 mg tablet 20 mg PO BEDTIME Qty: 90 2RF lisinopril 2.5 mg tablet 2.5 mg PO DAILY Qty: 90 3RF fluticasone propionate [Flonase Allergy Relief] 50 mcg/actuation spray,suspension 2 spray intranasal DAILY Qty: 16 12RF Rx Instructions: administer into each nostril calcium carbonate [Calcium 500] 500 mg calcium (1,250 mg) Tablet,Chewable 500 mg PO DAILY glucosamine HCl 750 mg tablet 750 mg PO DAILY Rx Instructions: administer with a meal cholecalciferol (vitamin D3) 10 mcg (400 unit) capsule 10 mcg PO DAILY multivitamin Tablet 1 tab PO DAILY fexofenadine [Bianca Allergy] 180 mg tablet 180 mg PO DAILY doxycycline hyclate 100 mg capsule 100 mg PO BID Qty: 14 0RF torsemide 20 mg tablet 20 mg PO DAILY PRN (Reason: sob) Qty: 90 3RF Interventions: ED Discharge Assessment Last Done: 12/20/23 00:51 Discharge Date/Time: 12/20/23 00:51
[2023-12-19] MEDS: Ondansetron ODT 4 MG TAB.RAPDIS TRANSLINGU (23:42)
--- NOTE | 2023-12-19 23:54 | MHC.EDTECH ---
patient was biba from home ,vitals taken ,patient blood drawn,urine sample collected and ,flu/covid swab ,Patient was hooked up to cafeteria monitor and private branch exchange service adviser into hospital attire ,pt was assisted to walk to bathroom and back to bed .
[2023-12-19 23:58] LABS: Alanine Aminotransferase 18 U/L (0-31); Albumin Level 4.2 g/dL (3.5-5.0); Alkaline Phosphatase 83 U/L (39-117); Anion Gap 11 (12-20); Aspartate Amino Transferase 30 U/L (5-31); Basophils Absolute Auto 0.1 X10*3/uL (0.0-0.2); Basophils Percent Auto 0.3 % (0-2); Bilirubin Total 0.3 mg/dL (0.0-1.0); Blood Urea Nitrogen 26 mg/dL (9-16); Calcium 9.5 mg/dL (8.4-10.2); Carbon Dioxide 25 mmol/L (22-29); Chloride 101 mmol/L (96-108); Creatinine Clr Calc Pharmacy 41.8; Eosinophils Absolute Auto 0.1 X10*3/uL (0.0-0.4); Eosinophils Percent Auto 0.4 % (0-4); Estimated Glomerular Filt Rate > 60; Glucose Random 101 mg/dL (60-115); Hematocrit 35.4 % (37.0-47.0); Hemoglobin 11.9 g/dl (12.0-16.0); Imm Gran Abs Auto 0.09 X10*3/uL (0.00-0.03); Imm Gran Pct Auto 0.5 % (0.0-0.4); Lymphocytes Absolute Auto 1.1 X10*3/uL (1.2-4.9); Lymphocytes Percent Auto 5.6 % (20-40); MANUAL DIFF FLAG SCAN; Mean Corpuscular HGB Conc 33.6 g/dl (31.0-35.0); Mean Corpuscular Hemoglobin 29.7 pg (27.0-33.0); Mean Corpuscular Volume 88.3 fL (80.0-98.0); Mean Platelet Volume 10.2 fL (9.4-12.3); Monocytes Absolute Auto 1.8 X10*3/uL (0.1-1.2); Monocytes Percent Auto 9.3 % (2-11); Neutrophils Percent Auto 83.9 % (45-73); Platelet Count 293 X10*3/uL (160-400); Potassium 4.4 mmol/L (3.3-5.1); Red Blood Count 4.01 X10*6/uL (4.20-5.50); Red Cell Distribution Width 14.4 % (11.0-16.0); SCAN SMEAR FLAG 1; Sodium 133 mmol/L (135-145); Total Protein 6.6 g/dL (6.5-8.0)
[2023-12-20] VITALS: BP 118/46; PULSE 97; RESP 18; O2SAT 97
[2023-12-20 00:01] LABS: COVID-19 Test Negative (Negative); IDNOW Serial# 08D9AD1C
[2023-12-20 00:02] LABS: IDNOW Serial# 152EDE1D; Influenza A Negative (Negative); Influenza B2 Negative (Negative)
[2023-12-20 00:03] LABS: Appearance Urine Clear; Color Urine Yellow; Glucose Urine UA Negative (Negative); Leukocyte Esterase Urine Moderate (2+) (Negative); Nitrite Urine Negative (Negative); PH 6.5 (5.0-9.0); Specific Gravity - Urine 1.015 (1.005-1.025); UMIC TRIGGER UACC YES; Urine Blood Negative (Negative); Urine Ketones Negative (Negative); Urine Protein Negative (Neg-Trace)
[2023-12-20 00:04] LABS: B Type Natriuretic Peptide 315 pg/mL (<100)
[2023-12-20 00:05] LABS: Troponin-I High Sensitivity 4.3 ng/L (<3.5-17.0)
[2023-12-20 00:08] LABS: Bacteria Urine None Seen (None Seen); RBC Urine 0-2 /HPF (0-2); UACC Culture Trigger YES
[2023-12-20 00:15] LABS: SLIDE REVIEW VERIFIED
== END 2023-12-20 00:51 | disposition home or self-care (01) ==
PROVIDERS: Emergency Provider Internal Medicine; PCP Internal Medicine
DX: K52.9 Noninfective gastroenteritis and colitis, unspecified (principal); R11.2 Nausea with vomiting, unspecified; R42 Dizziness and giddiness; R94.31 Abnormal electrocardiogram [ECG] [EKG]; R06.02 Shortness of breath; Z11.52 Encounter for screening for COVID-19; Z79.899 Other long term (current) drug therapy
CPT/HCPCS: 36415; 80053; 81001; 82607; 82728; 82746; 83540; 83735; 83880; 84100; 84484; 85025; 85045; 87086; 87502; 87635; 93005; 99283; 99285

== ENCOUNTER → 2023-12-19 23:15 | Outpatient (BNV) | payer MEDICARE, SELFPAY ==
[2022-05-04 12:53] VITALS: BP 108/62; BP 132/70; BMI 23.3
== END ==
PROVIDERS: Emergency Provider Internal Medicine; PCP Internal Medicine; Visit Provider Internal Medicine
DX: R94.31 Abnormal electrocardiogram [ECG] [EKG] (principal)
CPT/HCPCS: 93010

== ENCOUNTER 2023-12-27 12:54 | Outpatient (AMB) | payer MEDICARE, SELFPAY ==
[2022-05-04 12:53] VITALS: BP 108/62; BP 132/70; BMI 23.3
[2023-12-27 13:21] VITALS: BP 152/68; PULSE 81; O2SAT 98; BMI 22.5
--- NOTE | 2023-12-27 13:21 | MHC.PC.OV ---
Vital Signs 12/27/23 13:21 Height 5 ft 2 in Weight 123 lb BMI 22.5 BP 152/68 H Blood Pressure Location Lt brachial Position Sitting Pulse 81 Pulse Source Pulse Oximeter Pulse Oximetry (%) 98 Oxygen Delivery Method Room Air Intake Visit Reasons: cardiomyopathy Allergies atorvastatin [Lipitor] Allergy (Unknown, Verified 12/27/23 13:22) Unknown lovastatin Allergy (Unknown, Verified 12/27/23 13:22) Unknown pneumococcal vaccine Allergy (Unknown, Verified 12/27/23 13:22) Unknown pravastatin Allergy (Unknown, Verified 12/27/23 13:22) Unknown sertraline Adverse Reaction (Intermediate, Verified 12/27/23 13:22) sweaty Medication List - Last Reconciled 12/27/23 by Liborio Cast MD apixaban (Eliquis) 5 mg PO BID calcium carbonate (Calcium 500) 500 mg PO DAILY cholecalciferol (vitamin D3) 10 mcg PO DAILY clopidogrel 75 mg PO DAILY ezetimibe 10 mg PO DAILY famotidine 20 mg PO BEDTIME fexofenadine (Memo Allergy) 180 mg PO DAILY fluticasone propionate 50 mcg/actuation (Flonase Allergy Relief) 2 sprays intranasal DAILY glucosamine HCl 750 mg PO DAILY hydrocortisone 2.5% (Proctosol HC) 1 appl SC BID-QID PRN lisinopril 2.5 mg PO DAILY metoprolol succinate ER 50 mg PO DAILY multivitamin 1 tab PO DAILY ondansetron 4 mg PO Q6-8H PRN rosuvastatin (Crestor) 20 mg PO BEDTIME spironolactone 12.5 mg (1/2 x 25 mg) PO DAILY torsemide 20 mg PO DAILY PRN Tobacco use date assessed: 12/27/23 Fall risk assessment: No Falls in past year Last assessed Fall Risk: 12/27/23 Dental Screening Dental Screen Date: 12/27/23 Did you have a dental visit in the last 12 months?: Yes Did you have a dental problem in the last 6 months where you did not have access to dental care?: No Was dental information given to patient?: Patient has dentist HPI cardiomyopathy HPI Details 83-year-old female with hypertension hypercholesterolemia coronary artery disease ischemic cardiomyopathy with congestive heart failure and atrial fibrillation last seen in August 2023. Review of the notes was in the ER in December 19 with dizziness and diarrhea diagnosis of gastroenteritis. PAtient complains of nasal congestion even with flonae and memo and wants allergise [facility] Medical History Breast cancer screening by mammogram Nonrheumatic mitral valve regurgitation PAF (paroxysmal atrial fibrillation) Ischemic cardiomyopathy Atherosclerotic cardiovascular disease Congestive heart failure Overweight (BMI 25.0-29.9) Thyroid nodule Hemorrhoids Diverticulosis Hypercholesterolemia Hypertension Surgical History History of cardiac catheterization (~10/18/21) History of colonoscopy History of cataract surgery History of surgery Family History Father Hypertension Stroke CVD (cardiovascular disease) Mother Hypertension Stroke Social History Household Members: Spouse Housing: House Alcohol intake: never Patient Tobacco Use Status: Former Tobacco user Tobacco use type: Cigarette e-Cigarette/Vaping Use: Never Used Second Hand Smoke Exposure: No service: No Current occupational status: retired Cognitive needs: No Hearing needs: No Vision needs: Yes Questionnaire PHQ-9 Over the last 2 weeks, how often have you been bothered by any of the following problems? 1. Little interest or pleasure in doing things: several days 2. Feeling down, depressed, or hopeless: several days 3. Trouble falling or staying asleep, or sleeping too much: not at all 4. Feeling tired or having little energy: not at all 5. Poor appetite or overeating: several days 6. Feeling bad about yourself - or that you are a failure or have let yourself or your family down: not at all 7. Trouble concentrating on things, such as reading the newspaper or watching television: not at all 8. Moving or speaking so slowly that other people could have noticed. Or the opposite - being so fidgety or restless that you have been moving around a lot more than usual: not at all 9. Thoughts that you would be better off or of hurting yourself in some way: not at all Total score: 3 Depression Screening Interpretation: Positive Depression Screening Done: Yes Source: Developed by Drs. Luis Ruiz, Jenny Santosh Cox and colleagues, with an educational hiren from [employer]. Thrive Questionnaire Date Thrive assessed: 12/27/23 I am a: Patient What is your living situation today?: I have a steady place to live Within the past 12 months, did the food you bought not last and you didn't have the money to get more?: Never true Within the past 12 months, did you worry whether your food would run out before you got money to buy more?: Never true Do you have trouble paying for medicines?: No Do you have trouble getting transportation to medical appointments?: No Do you have trouble paying your heating and electricity bill?: No Do you have trouble taking care of your child, family member or friend?: No Do you have trouble with day-to-day activities such as bathing, preparing meals, shopping, managing finances, etc.?: No Are you currently unemployed and looking for a job?: No Are you interested in more education?: No Currently or been in a relationship where the following occur: no concerns reported THRIVE Score: 0 AUDIT C Alcohol Use Questionnaire (AUDIT-C) 1. How often do you have a drink containing alcohol?: 4 or more times a week 2. How many drinks containing alcohol do you have on a typical day when you are drinking?: 1 or 2 3. How often do you have six or more drinks on one occasion?: Never Total Score: 4 Score Reviewed/Action Taken: No TIMMY-7 AMB Questionnaire TIMMY-7 Date TIMMY - 7 assessed: 12/27/23 Feeling nervous, anxious, or on edge: 0 = Not at all Not being able to stop or control worryin = Not at all Worrying too much about different things: 0 = Not at all Trouble relaxin = Not at all Being so restless that it is hard to sit still: 0 = Not at all Becoming easily annoyed or irritable: 0 = Not at all Feeling afraid as if something awful might happen: 0 = Not at all Total TIMMY-7 score (0-4 normal; 5-9 mild; 10-14 moderate; 15-21 severe): 0 Source: Developed by Drs. Luis Ruiz, Santosh Larry and colleagues, with an educational hiren from [employer]. Physical exam (Primary Care) Vital Signs: Last Vital Signs Pulse 81 12/27/23 13:21 BP 152/68 H 12/27/23 13:21 Pulse Ox 98 12/27/23 13:21 Oxygen Delivery Method Room Air 12/27/23 13:21 BMI result Body Mass Index 22.5 Tobacco/Smoking Status: Tobacco use Status Tobacco use date assessed 12/27/23 12/27/23 13:23 Patient Tobacco Use Status Former Tobacco user 12/27/23 13:23 Tobacco use type Cigarette 12/27/23 13:23 e-Cigarette/Vaping Use Never Used 12/27/23 13:23 PHQ-9: PHQ-9 Score PHQ-9: Total score 3 12/27/23 13:41 Depression Screening Interpretation: Positive Thrive Assessment: Date of Thrive Assessment Date Thrive assessed 12/27/23 12/27/23 13:23 Currently or been in a relationship where the following occur: no concerns reported Const General: alert; No acute distress Eyes Conjunctivae: conjunctivae normal Resp Auscultation: clear to auscultation bilaterally Cardio Rate: regular rate Rhythm: regular rhythm GI Inspection: Yes normal to inspection Extrem General: Yes normal to inspection and No edema Assessment and Plan Assessment & Plan (1) Hypertension: Code(s): I10 - Essential (primary) hypertension Qualifiers: Hypertension type: essential hypertension Qualified Code(s): I10 - Essential (primary) hypertension Plan: Continue with blood pressure medication. Decrease salt intake and exercise presently on lisinopril 2.5 mg once a day metoprolol 50 mg once a day (2) Hypercholesterolemia: Code(s): E78.00 - Pure hypercholesterolemia, unspecified Plan: Avoid fried foods, chicken skin, eggs, butter margarine, pastries and meat. Be it pork or beef they have a lot of cholesterol LDL goal of less than 70 and triglyceride of less than 150. Patient on rosuvastatin 20 mg once a day blood work needed (3) Osteopenia: Comment: Bone density 03/2021 osteopenia Code(s): M85.80 - Other specified disorders of bone density and structure, unspecified site Plan: Reminded about getting bone density (4) GERD (gastroesophageal reflux disease): Code(s): K21.9 - Gastro-esophageal reflux disease without esophagitis Plan: Avoid the foods that causes that usually spicy foods, tomato products, juices, coffee, soda and foods that your sensitive to. After eating do not lie down, allow 3-4 hours before in lie down. And keep the head of bed above 30 degrees to avoid the acid from going up. (5) Coronary artery disease: Code(s): I25.10 - Atherosclerotic heart disease of [place] coronary artery without angina pectoris Plan: Control the cholesterol, weight, blood pressure, Patient on anticoagulation with Eliquis (6) Ischemic cardiomyopathy: Code(s): I25.5 - Ischemic cardiomyopathy Plan: Control the cholesterol, weight, blood pressure (7) Congestive heart failure: Comment: Congestive heart failure with reduced ejection fraction Code(s): I50.9 - Heart failure, unspecified Plan: Weigh daily and record continue with spironolactone and diuretics (8) PAF (paroxysmal atrial fibrillation): Code(s): I48.0 - Paroxysmal atrial fibrillation Plan: Continue with anticoagulation (9) Nasal congestion: Code(s): R09.81 - Nasal congestion Plan: Patient is referred to shuttler car (10) Hemorrhoid: Code(s): K64.9 - Unspecified hemorrhoids Plan: Avoid getting constipation. Three rules for constipation 1. Diet need to have a high fiber diet less of meat 2. Increase oral fluids 3. Exercise. Orders: Orders Complete Blood Count Auto Diff 2 Months I25.10 - Atherosclerotic heart disease of [place] coronary artery without angina pectoris B Type Natriuretic Peptide 2 Months I25.10 - Atherosclerotic heart disease of [place] coronary artery without angina pectoris Comprehensive Met. Panel 2 Months I25.10 - Atherosclerotic heart disease of [place] coronary artery without angina pectoris Free T4 (Free Thyroxine) 2 Months I25.10 - Atherosclerotic heart disease of [place] coronary artery without angina pectoris Thyroid Stimulating Hormone 2 Months I25.10 - Atherosclerotic heart disease of [place] coronary artery without angina pectoris Vitamin B12 and Folate 2 Months I25.10 - Atherosclerotic heart disease of [place] coronary artery without angina pectoris Magnesium 2 Months I25.10 - Atherosclerotic heart disease of [place] coronary artery without angina pectoris Lipid Panel 2 Months E78.00 - Pure hypercholesterolemia, unspecified, I25.10 - Atherosclerotic heart disease of [place] coronary artery without angina pectoris Vitamin D 25-OH Total 2 Months I25.10 - Atherosclerotic heart disease of [place] coronary artery without angina pectoris Referrals Allergy & Immunology Referral R09.81 - Nasal congestion Medications: New hydrocortisone 2.5% (Proctosol HC) 1 appl SC BID-QID PRN 30 grams 0RF hemorrhoids K64.9 - Unspecified hemorrhoids Coding Level of Care Code Est Pt Level 4 (11095) Diagnoses Essential hypertension I10 Hypertension type: essential hypertension Hypercholesterolemia E78.00 Osteopenia M85.80 GERD (gastroesophageal reflux disease) K21.9 Coronary artery disease I25.10 Ischemic cardiomyopathy I25.5 Congestive heart failure I50.9 PAF (paroxysmal atrial fibrillation) I48.0 Nasal congestion R09.81 Hemorrhoid K64.9 Additional Codes PHQ-9 - 77592 - PHQ-9 Billing: ([id number])
== END 2023-12-27 14:17 | disposition home or self-care (01) ==
PROVIDERS: PCP Internal Medicine; Visit Provider Internal Medicine
DX: I25.5 Ischemic cardiomyopathy (principal); I11.0 Hypertensive heart disease with heart failure; I50.9 Heart failure, unspecified; I48.0 Paroxysmal atrial fibrillation; M85.80 Other specified disorders of bone density and structure, unspecified site; K21.9 Gastro-esophageal reflux disease without esophagitis; I25.10 Atherosclerotic heart disease of native coronary artery without angina pectoris; R09.81 Nasal congestion; K64.9 Unspecified hemorrhoids
CPT/HCPCS: 99214

== ENCOUNTER 2024-03-19 07:22 | Outpatient (REF) | payer MEDICARE, SELFPAY ==
[2022-05-04 12:53] VITALS: BP 108/62; BP 132/70; BMI 23.3
[2024-03-19 09:31] LABS: B Type Natriuretic Peptide 305 pg/mL (<100)
[2024-03-19 10:28] LABS: MANUAL DIFF FLAG NO
[2024-03-19 10:38] LABS: Basophils Percent Auto 0.4 % (0-2); Eosinophils Absolute Auto 0.1 X10*3/uL (0.0-0.4); Eosinophils Percent Auto 1.8 % (0-4); Hematocrit 35.6 % (37.0-47.0); Hemoglobin 11.8 g/dl (12.0-16.0); Imm Gran Abs Auto 0.03 X10*3/uL (0.00-0.03); Imm Gran Pct Auto 0.4 % (0.0-0.4); Lymphocytes Absolute Auto 0.9 X10*3/uL (1.2-4.9); Lymphocytes Percent Auto 11.9 % (20-40); Mean Corpuscular HGB Conc 33.1 g/dl (31.0-35.0); Mean Corpuscular Hemoglobin 30.1 pg (27.0-33.0); Mean Corpuscular Volume 90.8 fL (80.0-98.0); Mean Platelet Volume 10.4 fL (9.4-12.3); Monocytes Absolute Auto 0.7 X10*3/uL (0.1-1.2); Monocytes Percent Auto 9.4 % (2-11); Neutrophils Absolute Auto 5.5 x10*3/uL (2.0-8.3); Neutrophils Percent Auto 76.1 % (45-73); Platelet Count 301 X10*3/uL (160-400); Red Blood Count 3.92 X10*6/uL (4.20-5.50); Red Cell Distribution Width 13.5 % (11.0-16.0); White Blood Count 7.2 X10*3/uL (4.8-10.8)
[2024-03-19 11:02] LABS: Alanine Aminotransferase 21 U/L (0-31); Albumin Level 4.2 g/dL (3.5-5.0); Alkaline Phosphatase 73 U/L (39-117); Anion Gap 13 (12-20); Aspartate Amino Transferase 32 U/L (5-31); Bilirubin Total 0.5 mg/dL (0.0-1.0); Blood Urea Nitrogen 20 mg/dL (9-16); Calcium 9.7 mg/dL (8.4-10.2); Carbon Dioxide 27 mmol/L (22-29); Chloride 101 mmol/L (96-108); Cholesterol 133 mg/dL (<200); Estimated Glomerular Filt Rate > 60; Glucose Random 89 mg/dL (60-115); HDL Cholesterol 67 mg/dL (>40); LDL Cholesterol Calculated 57 mg/dL (<100); Magnesium 2.2 mg/dL (1.6-2.6); Potassium 4.7 mmol/L (3.3-5.1); Sodium 136 mmol/L (135-145); Total Protein 6.5 g/dL (6.5-8.0); Triglycerides 47 mg/dL (<150)
[2024-03-19 11:14] LABS: Folate 14.3 ng/mL (> or = 4.0); Vitamin B12 1376 pg/mL (200-900)
[2024-03-19 11:20] LABS: Free T4 (Free Thyroxine) 1.04 ng/dL (0.71-1.85); Thyroid Stimulating Hormone 2.69 uIU/mL (0.32-4.0); Vitamin D 25-OH Total 44.3 ng/mL (>30)
== END 2024-03-19 07:23 | disposition home or self-care (01) ==
LOC: HO.HMGCLDS 07:22
PROVIDERS: PCP Internal Medicine; Visit Provider Internal Medicine
DX: I25.10 Atherosclerotic heart disease of native coronary artery without angina pectoris (principal); E78.00 Pure hypercholesterolemia, unspecified
CPT/HCPCS: 36415; 80053; 80061; 82306; 82607; 82746; 83735; 83880; 84439; 84443; 85025

== ENCOUNTER 2024-04-02 14:18 | Outpatient (AMB) | payer MEDICARE, SELFPAY ==
[2022-05-04 12:53] VITALS: BP 108/62; BP 132/70; BMI 23.3
--- NOTE | 2024-04-02 14:43 | MHC.PC.OV ---
Vital Signs 04/02/24 14:44 Height 5 ft 2 in Weight 121 lb 4 oz BMI 22.2 BP 162/72 H Blood Pressure Location Lt brachial Position Sitting Pulse 83 Pulse Source Pulse Oximeter Pulse Oximetry (%) 96 Oxygen Delivery Method Room Air Intake Visit Reasons: Congestive heart failure Photo Graphics Librarian Required: No Accompanied by: Self / Same As Patient Allergies atorvastatin [Lipitor] Allergy (Unknown, Verified 04/02/24 14:44) Unknown lovastatin Allergy (Unknown, Verified 04/02/24 14:44) Unknown pneumococcal vaccine Allergy (Unknown, Verified 04/02/24 14:44) Unknown pravastatin Allergy (Unknown, Verified 04/02/24 14:44) Unknown sertraline Adverse Reaction (Intermediate, Verified 04/02/24 14:44) sweaty Medication List - Last Reconciled 04/02/24 by Liborio Cast MD apixaban (Eliquis) 5 mg PO BID calcium carbonate (Calcium 500) 500 mg PO DAILY cholecalciferol (vitamin D3) 10 mcg PO DAILY clopidogrel 75 mg PO DAILY ezetimibe 10 mg PO DAILY famotidine 20 mg PO BEDTIME fexofenadine (Bianca Allergy) 180 mg PO DAILY fluticasone propionate 50 mcg/actuation (Flonase Allergy Relief) 2 sprays intranasal DAILY glucosamine HCl 750 mg PO DAILY hydrocortisone 2.5% (Proctosol HC) 1 appl RI BID-QID PRN lisinopril 2.5 mg PO DAILY metoprolol succinate ER 50 mg PO DAILY multivitamin 1 tab PO DAILY ondansetron 4 mg PO Q6-8H PRN rosuvastatin 20 mg PO BEDTIME spironolactone 12.5 mg (1/2 x 25 mg) PO DAILY torsemide 20 mg PO DAILY PRN Tobacco use date assessed: 12/27/23 Fall risk assessment: No Falls in past year Last assessed Fall Risk: 04/02/24 Dental Screening Dental Screen Date: 04/02/24 Did you have a dental visit in the last 12 months?: Yes Did you have a dental problem in the last 6 months where you did not have access to dental care?: No Was dental information given to patient?: Patient has dentist HPI Congestive heart failure HPI Details 84-year-old female with hypertension, hypercholesterolemia, GERD, coronary artery disease ischemic cardiomyopathy congestive heart failure atrial fibrillation last seen in 01/10/2024 patient comes in for follow-up. [facility] Medical History Breast cancer screening by mammogram Nonrheumatic mitral valve regurgitation PAF (paroxysmal atrial fibrillation) Ischemic cardiomyopathy Atherosclerotic cardiovascular disease Congestive heart failure Overweight (BMI 25.0-29.9) Thyroid nodule Hemorrhoids Diverticulosis Hypercholesterolemia Hypertension Surgical History History of cardiac catheterization (~10/18/21) History of colonoscopy History of cataract surgery History of surgery Family History Father Hypertension Stroke CVD (cardiovascular disease) Mother Hypertension Stroke Social History Household Members: Spouse Housing: House Alcohol intake: never Patient Tobacco Use Status: Former Tobacco user Tobacco use type: Cigarette e-Cigarette/Vaping Use: Never Used Second Hand Smoke Exposure: No service: No Current occupational status: retired Cognitive needs: No Hearing needs: No Vision needs: Yes Questionnaire Thrive Questionnaire Date Thrive assessed: 12/27/23 TIMMY-7 AMB Questionnaire TIMMY-7 Date TIMMY - 7 assessed: 12/27/23 Source: Developed by Drs. Luis Ruiz, Jenny Trujillo, Santosh Meadows and colleagues, with an educational hiren from [employer]. Physical exam (Primary Care) Vital Signs: Last Vital Signs Pulse 83 04/02/24 14:44 BP 162/72 H 04/02/24 14:44 Pulse Ox 96 04/02/24 14:44 Oxygen Delivery Method Room Air 04/02/24 14:44 BMI result Body Mass Index 22.2 Tobacco/Smoking Status: Tobacco use Status Tobacco use date assessed 12/27/23 04/02/24 14:46 Patient Tobacco Use Status Former Tobacco user 04/02/24 14:46 Tobacco use type Cigarette 04/02/24 14:46 e-Cigarette/Vaping Use Never Used 04/02/24 14:46 Thrive Assessment: Date of Thrive Assessment Date Thrive assessed 12/27/23 04/02/24 14:46 Const General: alert; No acute distress Eyes Conjunctivae: conjunctivae normal Resp Auscultation: clear to auscultation bilaterally Cardio Rate: regular rate Rhythm: regular rhythm GI Inspection: Yes normal to inspection Extrem General: Yes normal to inspection and No edema Assessment and Plan Assessment & Plan (1) PAF (paroxysmal atrial fibrillation): Code(s): I48.0 - Paroxysmal atrial fibrillation Plan: Continue with anticoagulation with Eliquis (2) Congestive heart failure: Comment: Congestive heart failure with reduced ejection fraction Code(s): I50.9 - Heart failure, unspecified Plan: On torsemide diuretic weigh daily (3) Ischemic cardiomyopathy: Code(s): I25.5 - Ischemic cardiomyopathy Plan: Continue with spironolactone beta rubén (4) Coronary artery disease: Code(s): I25.10 - Atherosclerotic heart disease of [place] coronary artery without angina pectoris Plan: Control the cholesterol, weight, blood pressure, continue with clopidogrel (5) GERD (gastroesophageal reflux disease): Code(s): K21.9 - Gastro-esophageal reflux disease without esophagitis Plan: Avoid the foods that causes that usually spicy foods, tomato products, juices, coffee, soda and foods that your sensitive to. After eating do not lie down, allow 3-4 hours before in lie down. And keep the head of bed above 30 degrees to avoid the acid from going up. (6) Generalized anxiety disorder: Code(s): F41.1 - Generalized anxiety disorder Plan: Stable (7) Hypertension: Code(s): I10 - Essential (primary) hypertension Qualifiers: Hypertension type: essential hypertension Qualified Code(s): I10 - Essential (primary) hypertension Plan: Continue with blood pressure medication. Decrease salt intake and exercise takes lisinopril 2.5 mg once a day metoprolol 50 mg once a day (8) Hypercholesterolemia: Code(s): E78.00 - Pure hypercholesterolemia, unspecified Plan: Avoid fried foods, chicken skin, eggs, butter margarine, pastries and meat. Be it pork or beef they have a lot of cholesterol on rosuvastatin 20 mg once a day (9) Osteopenia: Comment: Bone density 03/2021 osteopenia Code(s): M85.80 - Other specified disorders of bone density and structure, unspecified site Plan: Reminded about bone density Orders: Orders Complete Blood Count Auto Diff Today I50.9 - Heart failure, unspecified B Type Natriuretic Peptide 3 Months I50.9 - Heart failure, unspecified Comprehensive Met. Panel 3 Months I50.9 - Heart failure, unspecified Coding Level of Care Code Est Pt Level 4 (88128) Diagnoses PAF (paroxysmal atrial fibrillation) I48.0 Congestive heart failure I50.9 Ischemic cardiomyopathy I25.5 Coronary artery disease I25.10 GERD (gastroesophageal reflux disease) K21.9 Generalized anxiety disorder F41.1 Essential hypertension I10 Hypertension type: essential hypertension Hypercholesterolemia E78.00 Osteopenia M85.80
[2024-04-02 14:44] VITALS: BP 162/72; PULSE 83; O2SAT 96; BMI 22.2
== END 2024-04-02 15:17 | disposition home or self-care (01) ==
PROVIDERS: PCP Internal Medicine; Visit Provider Internal Medicine
DX: I48.0 Paroxysmal atrial fibrillation (principal); I11.0 Hypertensive heart disease with heart failure; I50.9 Heart failure, unspecified; I25.5 Ischemic cardiomyopathy; I25.10 Atherosclerotic heart disease of native coronary artery without angina pectoris; K21.9 Gastro-esophageal reflux disease without esophagitis; F41.1 Generalized anxiety disorder; E78.00 Pure hypercholesterolemia, unspecified; M85.80 Other specified disorders of bone density and structure, unspecified site
CPT/HCPCS: 99214

== ENCOUNTER 2024-04-18 08:20 | Outpatient (AMB) | payer MEDICARE, SELFPAY ==
[2022-05-04 12:53] VITALS: BP 108/62; BP 132/70; BMI 23.3
[2024-04-18 08:59] VITALS: BP 132/80; PULSE 80; TEMP 36.6; O2SAT 97; BMI 22.1
--- NOTE | 2024-04-18 08:59 | AM.OFFWIN_ITS ---
Intake Vital Signs 04/18/24 08:59 Height 5 ft 2 in Weight 121 lb BMI 22.1 BP 132/80 Blood Pressure Location Lt brachial Position Sitting Pulse 80 Pulse Source Pulse Oximeter Temp 97.9 F Temp Source Temporal Artery Scan Pulse Oximetry (%) 97 Oxygen Delivery Method Room Air Intake Visit Reasons: EP fell rt side pain/arm bruised Intake Note: pt is here for right side pain due to fall, patient states her arm is bruised Patient Tobacco Use Status: Former Tobacco user Allergies atorvastatin [Lipitor] Allergy (Unknown, Verified 04/18/24 09:00) Unknown lovastatin Allergy (Unknown, Verified 04/18/24 09:00) Unknown pneumococcal vaccine Allergy (Unknown, Verified 04/18/24 09:00) Unknown pravastatin Allergy (Unknown, Verified 04/18/24 09:00) Unknown sertraline Adverse Reaction (Intermediate, Verified 04/18/24 09:00) sweaty Do you need a note to return to daycare/school/sports/work: No HPI HPI Comments History of Present Illness Details Patient is an 84-year-old female who is here after sustaining a fall yesterday. She states she was at the door retrieving a package and the screen door slammed back at her, she lost her balance and fell into the bushes but she thinks she hit her right forearm on the cement porch on her way down. She does take Eliquis and Plavix daily. She states she did not hit her head, she did not lose consciousness. She sustained injuries to her right forearm. She states she can move her arm and her hand and her wrist with no problem but it is very bruised and swollen and she has a laceration. [facility] Medical History Breast cancer screening by mammogram Nonrheumatic mitral valve regurgitation PAF (paroxysmal atrial fibrillation) Ischemic cardiomyopathy Atherosclerotic cardiovascular disease Congestive heart failure Overweight (BMI 25.0-29.9) Thyroid nodule Hemorrhoids Diverticulosis Hypercholesterolemia Hypertension Surgical History History of cardiac catheterization (~10/18/21) History of colonoscopy History of cataract surgery History of surgery Family History Father Hypertension Stroke CVD (cardiovascular disease) Mother Hypertension Stroke Social History Household Members: Spouse Housing: House Alcohol intake: never Patient Tobacco Use Status: Former Tobacco user Tobacco use type: Cigarette e-Cigarette/Vaping Use: Never Used Second Hand Smoke Exposure: No service: No Current occupational status: retired Cognitive needs: No Hearing needs: No Vision needs: Yes Review of Systems Const All systems reviewed & are unremarkable except as noted in HPI and below Physical Exam Vital Signs: Last Vital Signs Temp 97.9 F 04/18/24 08:59 Pulse 80 04/18/24 08:59 BP 132/80 04/18/24 08:59 Pulse Ox 97 04/18/24 08:59 Oxygen Delivery Method Room Air 04/18/24 08:59 BMI result Body Mass Index 22.1 Const General: cooperative, healthy appearing, comfortable, no acute distress and well developed Orientation/consciousness: patient oriented x3 Limitations: no limitations Eyes General: appearance normal, both eyes and all related structures Resp Effort & Inspection: normal respiratory effort and able to speak in complete sentences Skin Other: Right forearm has large area ([id number]) of ecchymosis on the dorsal aspects, abrasion to the base of the medial wrist, 5 cm curved superficial laceration to the volar forearm. Neuro General: patient oriented x3 Office Procedures Laceration Repair Laceration repair performed by: Ila Escoto Explained risks and benefits to parent: Yes Informed consent given: Yes Consent signed: No Location: right forearm Length: 5cm Sedation: No Preparation: betadine Wound exploration: none Deep closure: No Skin closure: other Technique: Applied 5 Steri-Strips, approximating the edges Topical treatment: dry Tetanus toxoid ordered: No Patient tolerated procedure: [place]: [place] [id number] <2.5cm Procedure code (CPT) selection complete Assessment & Plan Assessment & Plan (1) Fall: Code(s): W19.XXXA - Unspecified fall, initial encounter Qualifiers: Encounter type: initial encounter Qualified Code(s): W19.XXXA - Unspecified fall, initial encounter Plan: As very superficial, applied Steri-Strips, advised once the Steri-Strips fell off, she can apply Eucerin to the wound. Plan see above Coding Level of Care Code Est Pt Level 3 (28594) Diagnoses Fall, initial encounter W19.XXXA Encounter type: initial encounter
== END 2024-04-18 10:00 | disposition home or self-care (01) ==
PROVIDERS: PCP Internal Medicine; Visit Provider Physician Assistant
DX: S51.811A Laceration without foreign body of right forearm, initial encounter (principal); W19.XXXA Unspecified fall, initial encounter
CPT/HCPCS: 99213

== ENCOUNTER 2024-05-27 15:42 | Outpatient (AMB) | payer MEDICARE, SELFPAY ==
[2022-05-04 12:53] VITALS: BP 108/62; BP 132/70; BMI 23.3
--- NOTE | 2024-05-27 15:43 | A.OFFPC_ITS ---
Intake Visit Reasons: Possible COVID Congressional Aide Required: No Allergies atorvastatin [Lipitor] Allergy (Unknown, Verified 04/18/24 09:00) Unknown lovastatin Allergy (Unknown, Verified 04/18/24 09:00) Unknown pneumococcal vaccine Allergy (Unknown, Verified 04/18/24 09:00) Unknown pravastatin Allergy (Unknown, Verified 04/18/24 09:00) Unknown sertraline Adverse Reaction (Intermediate, Verified 04/18/24 09:00) sweaty Medication List - Last Reconciled 05/27/24 by Radha Koenig PA-C apixaban (Eliquis) 5 mg PO BID calcium carbonate (Calcium 500) 500 mg PO DAILY cholecalciferol (vitamin D3) 10 mcg PO DAILY clopidogrel 75 mg PO DAILY ezetimibe 10 mg PO DAILY famotidine 20 mg PO BEDTIME glucosamine HCl 750 mg PO DAILY hydrocortisone 2.5% (Proctosol HC) 1 appl [place] BID-QID PRN ipratropium bromide intranasal lisinopril 2.5 mg PO DAILY metoprolol succinate ER 50 mg PO DAILY multivitamin 1 tab PO DAILY ondansetron 4 mg PO Q6-8H PRN rosuvastatin 20 mg PO BEDTIME spironolactone 12.5 mg (1/2 x 25 mg) PO DAILY torsemide 20 mg PO DAILY PRN Tobacco use date assessed: 12/27/23 Fall risk assessment: No Falls in past year Last assessed Fall Risk: 05/27/24 Dental Screening Dental Screen Date: 04/02/24 HPI Possible COVID HPI Details 84-year-old female with past medical his tory of hypertension, hypercholesterolemia, osteopenia, generalized anxiety disorder, history of STEMI, GERD, congestive heart failure, paroxysmal atrial fibrillation last seen by Dr. Cast 04/02/2024 being seen through telemedicine for acute problem. Patient states her tested positive for COVID last week. She tested n egative for COVID yesterday but last night began to have a sore throat and a cough which continued into today. Patient has had COVID in the past and was hospitalized for this issue. [facility] Medical History Breast cancer screening by mammogram Nonrheumatic mitral valve regurgitation PAF (paroxysmal atrial fibrillation) Ischemic cardiomyopathy Atherosclerotic cardiovascular disease Congestive heart failure Overweight (BMI 25.0-29.9) Thyroid nodule Hemorrhoids Diverticulosis Hypercholesterolemia Hypertension Surgical History History of cardiac catheterization (~10/18/21) History of colonoscopy History of cataract surgery History of surgery Family History Father Hypertension Stroke CVD (cardiovascular disease) Mother Hypertension Stroke Social History Household Members: Spouse Housing: House Alcohol intake: never Patient Tobacco Use Status: Former Tobacco user Tobacco use type: Cigarette e-Cigarette/Vaping Use: Never Used Second Hand Smoke Exposure: No service: No Current occupational status: retired Cognitive needs: No Hearing needs: No Vision needs: Yes Questionnaire Thrive Questionnaire Date Thrive assessed: 12/27/23 AUDIT C Alcohol Use Questionnaire (AUDIT-C) 1. How often do you have a drink containing alcohol?: 4 or more times a week 2. How many drinks containing alcohol do you have on a typical day when you are drinking?: 1 or 2 3. How often do you have six or more drinks on one occasion?: Never Total Score: 4 Score Reviewed/Action Taken: No TIMMY-7 AMB Questionnaire TIMMY-7 Date TIMMY - 7 assessed: 12/27/23 Source: Developed by Drs. Luis Ruiz, Jenny Trujillo, Santosh Meadows and colleagues, with an educational hiren from [employer]. Review of Systems Const Denies body aches, Denies chills, Denies fever(s), Denies headache(s) and Denies poor appetite Eyes Reports no additional complaints ENT Reports dysphagia, Denies dizziness, Denies headache(s), Denies odynophagia and Reports sore throat Card Denies chest pain, Denies irregular heart rhythm and Denies dyspnea Resp Details: Mild phlegm Reports cough, Denies hemoptysis, Denies excessive phlegm production and Denies dyspnea GI Denies abdominal pain, Denies constipation, Reports dysphagia, Denies diarrhea, Denies nausea, Denies odynophagia and Denies vomiting Reports no additional complaints Musc Reports no additional complaints and Denies abnormal gait Skin/Breast Reports system reviewed and no additional complaints, except as documented Neuro Denies abnormal gait, Denies dizziness and Denies headache(s) Psych Reports no additional complaints Physical exam (Primary Care) Tobacco/Smoking Status: Tobacco use Status Tobacco use date assessed 12/27/23 05/27/24 15:46 Patient Tobacco Use Status Former Tobacco user 05/27/24 15:46 Tobacco use type Cigarette 05/27/24 15:46 e-Cigarette/Vaping Use Never Used 05/27/24 15:46 Thrive Assessment: Date of Thrive Assessment Date Thrive assessed 12/27/23 05/27/24 15:46 Const Other: Physical exam was not performed today due to telehealth visit. Patient states she has been taking her blood pressure at home which has been within normal limits and has not had a fever. Telehealth Telehealth Telehealth Platform: Telephone Location of provider rendering services: practice address Location of patient: address on file Patient Identification confirmed using: Name, : Yes Telehealth method: voice only (Landline ) Patient verbally consented to treatment: Yes Patient verbally consented to billing insurance company: Yes Patient informed of any privacy concerns related to visit: Yes Minutes spent on Phone/Video with Pt.: 15 Assessment and Plan Assessment & Plan (1) COVID-19: Code(s): U07.1 - COVID-19 Plan: Patient was exposed to COVID-19 through her who lives at home with her. She began with sore throat and cough last night and then carried into today. She denies any fevers, chest pain, shortness of breath, or headache. Thus far she has tested negative for COVID and we will test tomorrow afternoon again. Due to prior history of hospitalization from COVID-19 infection as well as known exposure and similar symptoms we will treat with Paxlovid for 5 days. Advised patient to discontinue rosuvastatin while taking this medication and continue the rosuvastatin after completion of Paxlovid. If your symptoms worsen or you began to have chest pains or severe shortness of breath please go to the ER. Plan This note was constructed using voice recognition software. While every effort has been made to ensure accuracy and licensed staff mft, still areas may have been included sometimes these areas may affect the content or meeting of the given symptoms. Total time spent caring for the patient today was 20 minutes. This includes time spent before the visit reviewing the chart, time spent during the visit, and time spent after the visit and documentation. Medications: New nirmatrelvir-ritonavir 300 mg (150 mg x 2)-100 mg (Paxlovid) take TWO 150 mg tablets of nirmatrelvir with ONE 100 mg tablet of ritonavir twice daily for 5 days PO 30 ea 0RF 5 days Coding Level of Care Code Est Pt Level 4 (80516) Diagnoses COVID-19 U07.1
== END 2024-05-27 17:33 | disposition home or self-care (01) ==
LOC: HO.HMGH 15:42
PROVIDERS: PCP Internal Medicine
DX: U07.1 COVID-19 (principal)
CPT/HCPCS: 99214

== ENCOUNTER 2024-05-27 20:13 | Inpatient (IN) | payer MEDICARE, SELFPAY ==
[2022-05-04 12:53] VITALS: BP 108/62; BP 132/70; BMI 23.3
--- NOTE | ~2024-05-27 | XR_ITS ---
EXAMINATION: CHEST 2 VIEWS CLINICAL INFORMATION: shortness of breath. COMPARISON: 12/12/2022. TECHNIQUE: PA and lateral views of the chest obtained. FINDINGS: The lungs are well expanded. Chronic appearing reticular markings are again seen bilaterally. No focal infiltrate, effusion, edema, or pneumothorax. Cardiac and mediastinal silhouettes are within normal limits for size with vascular calcification in the aorta. No acute bony abnormality seen XR/XR chest 2V IMPRESSION: Chronic appearing changes similar to the 12/12/2022 study.
[2024-05-27 20:24] VITALS: BP 153/76; PULSE 104; O2SAT 96
[2024-05-27 20:29] VITALS: BP 150/54; PULSE 100; RESP 20; O2SAT 95
--- NOTE | 2024-05-27 20:31 | ED_ITS ---
HPI - URI/Sore Throat General Chief Complaint: Upper Respiratory Symptoms Stated Complaint: SOB, has COVID Time Seen by Provider: 05/27/24 20:23 Source: patient Mode of arrival: ambulatory Limitations: no limitations History of Present Illness HPI Narrative: Patient is an 84-year-old female who presents to the emergency department with reports of difficulty breathing. States that her was diagnosed with COVID-19 2 days ago. Yesterday she developed a sore throat cough and was feeling short of breath. She was started on Paxlovid prophylactically by her primary care doctor, has taken 4 doses. She states that she required hospital admission in the past due to COVID-19 and low O2 saturation. She reports that she feels just as unwell as she did last time when she required admission. Denies fevers, chills, headache, dizziness, neck pain, neck stiffness, chest pain, nausea, vomiting, abdominal pain, numbness or tingling of the extremities, genitourinary symptoms. Related Data Home Medications ?Medication ?Instructions ?Recorded ?Confirmed cholecalciferol (vitamin D3) 10 10 mcg PO DAILY 09/08/20 05/27/24 mcg (400 unit) capsule glucosamine HCl 750 mg tablet 750 mg PO DAILY 09/08/20 05/27/24 multivitamin 1 tab PO DAILY 09/08/20 05/27/24 calcium carbonate (Calcium 500) 500 mg PO DAILY 12/12/22 05/27/24 ipratropium bromide 42 mcg (0.06 intranasal 05/27/24 05/27/24 %) nasal spray Previous Rx's ?Medication ?Instructions ?Recorded spironolactone 25 mg tablet 12.5 mg (1/2 x 25 mg) PO DAILY #90 05/10/23 tabs ezetimibe 10 mg tablet 10 mg PO DAILY #90 tabs 10/04/23 clopidogrel 75 mg tablet 75 mg PO DAILY #90 tabs 10/10/23 metoprolol succinate 50 mg 50 mg PO DAILY #90 tabs 10/10/23 tablet,extended release 24 hr apixaban 5 mg tablet (Eliquis) 5 mg PO BID #180 tabs 11/15/23 famotidine 20 mg tablet 20 mg PO BEDTIME #90 tabs 11/29/23 lisinopril 2.5 mg tablet 2.5 mg PO DAILY #90 tabs 11/30/23 ondansetron 4 mg disintegrating 4 mg PO Q6-8H PRN nausea and 12/20/23 tablet vomiting #7 tabs hydrocortisone 2.5 % topical cream 1 appl [place] BID-QID PRN hemorrhoids 12/27/23 with perineal applicator #30 grams (Proctosol HC) rosuvastatin 20 mg tablet 20 mg PO BEDTIME #90 tabs 01/31/24 torsemide 20 mg tablet 20 mg PO DAILY PRN sob #90 tabs 05/14/24 nirmatrelvir 300 mg (150 mg See Rx Instructions PO .COMPLEX 5 05/27/24 x2)-ritonavir 100 mg tablet,dose days #30 ea pack (Paxlovid) Allergies Allergy/AdvReac Type Severity Reaction Status Date / Time atorvastatin [Lipitor] Allergy Unknown Unknown Verified 05/27/24 20:37 lovastatin Allergy Unknown Unknown Verified 05/27/24 20:37 pneumococcal vaccine Allergy Unknown Unknown Verified 05/27/24 20:37 pravastatin Allergy Unknown Unknown Verified 05/27/24 20:37 sertraline AdvReac Intermediate sweaty Verified 05/27/24 20:37 Review of Systems 2 Review of Systems: Yes all other systems are reviewed and are negative PMFSH Past Medical History Attestation statement: The following information was validated with the patient. Source: old records reviewed Medical History Breast cancer screening by mammogram Nonrheumatic mitral valve regurgitation PAF (paroxysmal atrial fibrillation) Ischemic cardiomyopathy Atherosclerotic cardiovascular disease Congestive heart failure Overweight (BMI 25.0-29.9) Thyroid nodule Hemorrhoids Diverticulosis Hypercholesterolemia Hypertension Surgical History History of cardiac catheterization (~10/18/21) History of colonoscopy History of cataract surgery History of surgery Family History Family History Father Hypertension Stroke CVD (cardiovascular disease) Mother Hypertension Stroke Social History Social History Household Members: Spouse Housing: House Alcohol intake: never Patient Tobacco Use Status: Former Tobacco user Tobacco use type: Cigarette Smoked in Last 30 Days: No e-Cigarette/Vaping Use: Never Used Second Hand Smoke Exposure: No Advance Directives: No Advance Directives Information Provided: No service: No Current occupational status: retired Cognitive needs: No Hearing needs: No Vision needs: Yes Physical Exam 2 Vital Signs: Vital Signs: Last Vital Signs Temp 97.9 F 05/27/24 23:48 Pulse 94 05/27/24 23:48 Resp 20 05/27/24 23:48 BP 156/71 H 05/27/24 23:48 Pulse Ox 95 05/27/24 23:48 O2 Del Method Room Air 05/27/24 23:48 BMI result Body Mass Index 46.4 Appearance: Alert.?Oriented to person, place and time. No acute distress.?Normal affect. Eyes: Pupils equal, round and reactive to light.? ENT: TM normal bilaterally. Pharynx normal.?? Neck: Normal inspection.? Neck supple.??No cervical adenopathy CVS: Heart sounds normal. Normal heart rate and rhythm.? Pulses normal.?? Respiratory: No respiratory distress.? Lung sounds clear at apices, prolonged expiration, rales at the bilateral bases Abdomen: Soft and non-tender. Normoactive bowel sounds. Skin: Skin warm and dry.? Normal skin color.? ? Extremities: No lower extremity edema.? Neuro: Moves all extremities spontaneously. Sensation intact bilaterally. No motor deficits. Ambulates with normal steady gait. Course Reevaluation(s) Reevaluation #1: Ambulatory O2 trial reveals O2 saturation down to 88%, tachycardic 120s with reported shortness of breath. Minimal rales, does not appear consistent with acute CHF exacerbation no JVD or pedal edema. CXR without pleural effusions, pulmonary congestion, no infiltrates or consolidation. Suspect hypoxia and shortness of breath secondary to COVID-19 infection. Will speak with hospitalist regarding admission to medicine service Time: 21:02 Medications Administered Generic Name Dose Route Start Last Admin Trade Name Freq PRN Reason Stop Dose Admin Dexamethasone Sodium Phosphate 6 mg 05/28/24 01:20 05/28/24 01:56 Dexamethasone Sod Phosphate 4 Mg/Ml Vial IVPUSH 6 mg DAILY CHANCE Administration Discontinued Medications Generic Name Dose Route Start Last Admin Trade Name Freq PRN Reason Stop Dose Admin Apixaban 5 mg 05/28/24 00:43 05/28/24 01:56 Apixaban 5 Mg Tablet PO 05/28/24 00:44 5 mg ONCE STA Administration Medical Decision Making Medical Decision Making [facility] Narrative: Patient is an 84-year-old female paroxysmal AFib, ischemic cardiomyopathy mitral valve regurgitation, anxiety w shortness of breath in the setting of COVID -19 exposure. She is COVID-19 positive today. Will obtain chest x-ray basic labs, in addition to ambulatory O2 trial for safe disposition planning. Differential Diagnosis Differential Diagnoses: The differential diagnosis associated with the presentation includes (COVID-19, viral syndrome, CHF exacerbation) Admission/Observation Consideration of admission/observation: Escalation of care including admission/observation considered ( see narrative above) Consult Healthcare Provider Management of the patient was discussed with: Hospitalist Lab Data [facility] Lab Attestation statement: I reviewed the patient's lab results. ( see narrative above) 05/27/24 21:19 05/27/24 21:19 Labs: Lab Results 05/27/24 05/27/24 Range/Units 20:25 21:19 WBC 11.8 H (4.8-10.8) X10*3/uL RBC 3.78 L (4.20-5.50) X10*6/uL Hgb 11.4 L (12.0-16.0) g/dl Hct 32.9 L (37.0-47.0) % MCV 87.0 (80.0-98.0) fL MCH 30.2 (27.0-33.0) pg MCHC 34.7 (31.0-35.0) g/dl RDW 13.2 (11.0-16.0) % Plt Count 309 (160-400) X10*3/uL MPV 9.6 (9.4-12.3) fL Immature Gran % (Auto) 0.5 H (0.0-0.4) % Neut % (Auto) 83.6 H (45-73) % Lymph % (Auto) 5.2 L (20-40) % [place] % (Auto) 9.7 (2-11) % Eos % (Auto) 0.3 (0-4) % Baso % (Auto) 0.7 (0-2) % Lymph # (Auto) 0.6 L (1.2-4.9) X10*3/uL [place] # (Auto) 1.2 (0.1-1.2) X10*3/uL Eos # (Auto) 0.0 (0.0-0.4) X10*3/uL Baso # (Auto) 0.1 (0.0-0.2) X10*3/uL Abs Immat Gran (auto) 0.06 H (0.00-0.03) X10*3/uL Absolute Neuts (auto) 9.9 H (2.0-8.3) x10*3/uL Absolute Nucleated RBC 0.000 (0.0-0.012) X10*3/uL Nucleated RBC % (auto) 0.0 (0.0-0.2) /100WBC PT 17.2 H (11.1-13.3) SEC INR 1.4 H (0.9-1.1) Sodium 129 L (135-145) mmol/L Potassium 4.6 (3.3-5.1) mmol/L Chloride 98 (96-108) mmol/L Carbon Dioxide 22 (22-29) mmol/L Anion Gap 14 (12-20) BUN 19 H (9-16) mg/dL Creatinine 0.70 (0.5-1.4) mg/dL Estim Creat Clear Calc 73.1 Estimated GFR > 60 Random Glucose 115 (60-115) mg/dL Calcium 10.2 (8.4-10.2) mg/dL Total Bilirubin 0.4 (0.0-1.0) mg/dL AST 50 H (5-31) U/L ALT 32 H (0-31) U/L Alkaline Phosphatase 88 (39-117) U/L B-Natriuretic Peptide 649 H (<100) pg/mL Total Protein 7.1 (6.5-8.0) g/dL Albumin 4.5 (3.5-5.0) g/dL Influenza Type A (PCR) NEGATIVE (Negative) Influenza Type B (PCR) NEGATIVE (Negative) RSV RNA Qual (PCR) NEGATIVE (Negative) SARS-CoV-2 RNA (RT-PCR) POSITIVE A (Negative) Radiology Impression Discussion of test interpretation with radiology: I have reviewed the radiologist's reading. Radiologist Impression: XR/XR chest 2V IMPRESSION: Chronic appearing changes similar to the 12/12/2022 study. External Record Review External record reviewed: Outpatient record Prescription Management I considered prescription management with: Pain Medication ( acetaminophen/ibuprofen) Discharge Plan Discharge Clinical Impression: COVID-19 Patient Disposition: Admitted As Inpatient
[2024-05-27 20:34] VITALS: BP 150/54; PULSE 96; RESP 16; TEMP 36.6; O2SAT 95; BMI 46.4
[2024-05-27 21:05] VITALS: O2SAT 88
--- NOTE | 2024-05-27 21:05 | PC.NURSE ---
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
[2024-05-27 21:14] LABS: Influenza A PCR NEGATIVE (Negative); Influenza B PCR NEGATIVE (Negative); Resp Syncy Virus RNA Qual PCR NEGATIVE (Negative); SARS COV2 PCR INHOUSE POSITIVE (Negative)
[2024-05-27 21:24] LABS: MANUAL DIFF FLAG NO
[2024-05-27 21:28] LABS: Basophils Absolute Auto 0.1 X10*3/uL (0.0-0.2); Basophils Percent Auto 0.7 % (0-2); Eosinophils Percent Auto 0.3 % (0-4); Hematocrit 32.9 % (37.0-47.0); Hemoglobin 11.4 g/dl (12.0-16.0); Imm Gran Abs Auto 0.06 X10*3/uL (0.00-0.03); Imm Gran Pct Auto 0.5 % (0.0-0.4); Lymphocytes Absolute Auto 0.6 X10*3/uL (1.2-4.9); Lymphocytes Percent Auto 5.2 % (20-40); Mean Corpuscular HGB Conc 34.7 g/dl (31.0-35.0); Mean Corpuscular Hemoglobin 30.2 pg (27.0-33.0); Mean Platelet Volume 9.6 fL (9.4-12.3); Monocytes Absolute Auto 1.2 X10*3/uL (0.1-1.2); Monocytes Percent Auto 9.7 % (2-11); Neutrophils Absolute Auto 9.9 x10*3/uL (2.0-8.3); Neutrophils Percent Auto 83.6 % (45-73); Platelet Count 309 X10*3/uL (160-400); Red Blood Count 3.78 X10*6/uL (4.20-5.50); Red Cell Distribution Width 13.2 % (11.0-16.0); White Blood Count 11.8 X10*3/uL (4.8-10.8)
[2024-05-27 21:36] LABS: INTERNATIONAL NORM RATIO 1.4 (0.9-1.1); Prothrombin Time 17.2 SEC (11.1-13.3)
[2024-05-27 21:42] LABS: Alanine Aminotransferase 32 U/L (0-31); Albumin Level 4.5 g/dL (3.5-5.0); Alkaline Phosphatase 88 U/L (39-117); Anion Gap 14 (12-20); Aspartate Amino Transferase 50 U/L (5-31); Bilirubin Total 0.4 mg/dL (0.0-1.0); Blood Urea Nitrogen 19 mg/dL (9-16); Calcium 10.2 mg/dL (8.4-10.2); Carbon Dioxide 22 mmol/L (22-29); Chloride 98 mmol/L (96-108); Creatinine Clr Calc Pharmacy 73.1; Estimated Glomerular Filt Rate > 60; Glucose Random 115 mg/dL (60-115); Potassium 4.6 mmol/L (3.3-5.1); Sodium 129 mmol/L (135-145); Total Protein 7.1 g/dL (6.5-8.0)
[2024-05-27 21:48] LABS: B Type Natriuretic Peptide 649 pg/mL (<100)
[2024-05-27 22:42] VITALS: O2SAT 95
--- NOTE | 2024-05-27 22:43 | PC.NURSE ---
pt rsting quietly in exam room awaiting provider re-eval
[2024-05-27 23:48] VITALS: BP 156/71; PULSE 94; RESP 20; TEMP 36.6; O2SAT 95
[2024-05-28] VITALS (7 sets, daily range): BP systolic 131–156; BP diastolic 60–81; PULSE 87–105; RESP 17–20; TEMP 36.6–36.9; O2SAT 95–97
--- NOTE | 2024-05-28 01:00 | PM.IMHP ---
History of Present Illness Date of Service: 05/28/24 Attending physician on admission: Dieudonne Ricks Chief Complaint: Shortness of breaths Jocelynn Farr is 84 years old woman with past medical history significant for HFrEF, atrial fibrillation on anticoagulation with Eliquis, CAD, essential hypertension hypercholesterolemia presents to the emergency department complaining of shortness on breath and productive cough. She did not report fever or chills. Denies headache, chest pain, abdominal pain, nausea, vomiting or diarrhea. She stated that her has COVID. Patient has been taking Parlovix. . In the ED, she was found to have O2 sat 88% with ambulation. Other vital signs are normal except for low-grade tachycardia. Blood workup showed leukocytosis of 11.6. Hemoglobin is 11.4 which is at baseline. Platelets are normal. INR is 1.4. Sodium is 129. There are no electrolyte imbalances. Transaminases are elevated. BNP is 649. Viral testing for COVID-19 is positive. CXR is negative. ED tx: None Review of Systems Review of Systems: All 12 systems were reviewed and normal except as noted in HPI. [facility] Medical History Breast cancer screening by mammogram Nonrheumatic mitral valve regurgitation PAF (paroxysmal atrial fibrillation) Ischemic cardiomyopathy Atherosclerotic cardiovascular disease Congestive heart failure Overweight (BMI 25.0-29.9) Thyroid nodule Hemorrhoids Diverticulosis Hypercholesterolemia Hypertension Family History Father Hypertension Stroke CVD (cardiovascular disease) Mother Hypertension Stroke Surgical History History of cardiac catheterization (~10/18/21) History of colonoscopy History of cataract surgery History of surgery Social History Household Members: Spouse Housing: House Alcohol intake: never Patient Tobacco Use Status: Former Tobacco user Tobacco use type: Cigarette Smoked in Last 30 Days: No e-Cigarette/Vaping Use: Never Used Second Hand Smoke Exposure: No Advance Directives: No Advance Directives Information Provided: No service: No Current occupational status: retired Cognitive needs: No Hearing needs: No Vision needs: Yes Meds Allergies Allergy/AdvReac Type Severity Reaction Status Date / Time atorvastatin [Lipitor] Allergy Unknown Unknown Verified 05/27/24 20:37 lovastatin Allergy Unknown Unknown Verified 05/27/24 20:37 pneumococcal vaccine Allergy Unknown Unknown Verified 05/27/24 20:37 pravastatin Allergy Unknown Unknown Verified 05/27/24 20:37 sertraline AdvReac Intermediate sweaty Verified 05/27/24 20:37 Active Medications: Current Medications Acetaminophen (Acetaminophen 325 Mg Tablet) 975 mg PO Q6H PRN PRN Reason: Pain, Mild (Pain Scale 1-3), fever or headache Guaifenesin/Dextromethorphan (Guaifenesin Dm 200/20/10 Ml 10 Ml Syrup) 10 ml PO Q6H PRN PRN Reason: Cough Sodium Chloride (Ns) 500 mls @ 250 mls/hr IV .Q2H CHANCE Stop: 05/28/24 01:59 Ondansetron HCl (Ondansetron Hcl 4 Mg/2 Ml Vial) 4 mg IVPUSH Q8H PRN PRN Reason: Nausea and Vomiting Sodium Chloride (0.9 % Sodium Chloride Flush 3 Ml Syringe) 3 ml IVFLUSH QSHIFT [facility] Home Medications ?Medication ?Instructions ?Recorded ?Confirmed ?Last Taken ?Type cholecalciferol (vitamin D3) 10 10 mcg PO DAILY 09/08/20 05/27/24 12/11/22 History mcg (400 unit) capsule glucosamine HCl 750 mg tablet 750 mg PO DAILY 09/08/20 05/27/24 12/11/22 History multivitamin 1 tab PO DAILY 09/08/20 05/27/24 12/11/22 History calcium carbonate (Calcium 500) 500 mg PO DAILY 12/12/22 05/27/24 12/11/22 History ipratropium bromide 42 mcg (0.06 intranasal 05/27/24 05/27/24 Unknown History %) nasal spray Physical Exam Vital Signs and Narrative: Vital Signs: Last Vital Signs Temp 97.9 F 05/27/24 23:48 Pulse 94 05/27/24 23:48 Resp 20 05/27/24 23:48 BP 156/71 H 05/27/24 23:48 Pulse Ox 95 05/27/24 23:48 O2 Del Method Room Air 05/27/24 23:48 BMI result Body Mass Index 46.4 Constitutional - Awake and Alert, No apparent distress. Afebrile. HEENT - PERRLA, EOMI Heart - S1S2, RRR, No edema Lungs - Normal lung expansion, Normal respiratory effort, No respiratory distress, CTA bilaterally Abdomen - NT / ND; +BS; No rebound or guarding Extremities - no calf tenderness bilaterally, no swelling Musculoskeletal - Normal inspection, normal ROM Skin - Warm/Dry Neurological - Alert & oriented x3. No focal weakness. Normal speech. Psychological - Appropriate affect Results Labs 05/27/24 21:19 05/27/24 21:19 Labs: Laboratory Results - last 24 hr 05/27/24 05/27/24 20:25 21:19 MCV 87.0 MCH 30.2 MCHC 34.7 RDW 13.2 Plt Count 309 MPV 9.6 Immature Gran % (Auto) 0.5 H Neut % (Auto) 83.6 H Lymph % (Auto) 5.2 L [place] % (Auto) 9.7 Eos % (Auto) 0.3 Baso % (Auto) 0.7 Lymph # (Auto) 0.6 L [place] # (Auto) 1.2 Eos # (Auto) 0.0 Baso # (Auto) 0.1 Abs Immat Gran (auto) 0.06 H Absolute Neuts (auto) 9.9 H Absolute Nucleated RBC 0.000 Nucleated RBC % (auto) 0.0 PT 17.2 H INR 1.4 H Anion Gap 14 Estim Creat Clear Calc 73.1 Estimated GFR > 60 Random Glucose 115 Calcium 10.2 Total Bilirubin 0.4 AST 50 H ALT 32 H Alkaline Phosphatase 88 B-Natriuretic Peptide 649 H Total Protein 7.1 Albumin 4.5 Influenza Type A (PCR) NEGATIVE Influenza Type B (PCR) NEGATIVE RSV RNA Qual (PCR) NEGATIVE SARS-CoV-2 RNA (RT-PCR) POSITIVE A Imaging Radiologist's Impressions: Impressions Chest X-Ray 05/27/24 21:12 IMPRESSION: Chronic appearing changes similar to the 12/12/2022 study. Assessment and Plan (1) Hypoxia: Status: Acute (2) COVID-19 virus infection: Status: Acute Plan Jocelynn Farr is 84 y/o woman admitted with: Hypoxia likely associated to COVID-19 infection. Admit to hospitalist service. Telemetry. Pulse oximetry. Supplemental oxygen to keep O2 sats > 90%. Bronchodilator therapy as needed. Start therapy with Decadron 6 mg IV daily, 1st dose now. Hyponatremia. Likely secondary to above and use of diuretics. NS bolus 250 ml. Hold diuretics for now (torsemide). Continue to monitor sodium level. Elevated BNP. No evidence of CHF: Lungs are clear and CXR is negative. CAD. No chest pain. Continue Plavix, statin, ezetimibe and metoprolol. Paroxysmal atrial fibrillation. Currently rate and rhythm controlled. Continue metoprolol and Eliquis. Essential hypertension. Continue home anti-HTN meds: Lisinopril and metoprolol. GERD. Continue famotidine. Hyperlipidemia. Continue statin. DVT prophylaxis: On Eliquis Code status: Full Patient will need hospitalization for at least 2 midnights for hypoxia secondary to COVID-19 infection management and treatment with IV steroids. She will need close monitoring of vital signs especially oxygen saturation. Quality Stroke Does the patient have a stroke diagnosis?: No VTE Prior VTE?: No VTE Risk Level:: Medical - moderate - high VTE Device Contraindication: Treatment Not Indicated VTE Drug Contraindication: N/A - Med Ordered
[2024-05-28] MEDS: Apixaban 5 MG TABLET PO ×3 (01:56→20:08)
[2024-05-28] MEDS: dexAMETHasone sod phosphate 4 MG/ML VIAL 6 MG IVPUSH ×2 (01:56→08:05)
[2024-05-28 02:36] LABS: Osmolality Urine 361 mosm/kg (373-1093)
[2024-05-28 02:49] LABS: Osmolality, Serum 272 mosm/kg (281-305)
[2024-05-28] MEDS: 0.9 % Sodium Chloride 250 ML IV (03:06)
[2024-05-28] MEDS: Acetaminophen 325 MG TABLET 975 MG PO (03:09)
[2024-05-28 05:29] LABS: Basophils Percent Auto 0.3 % (0-2); Hematocrit 31.7 % (37.0-47.0); Hemoglobin 10.8 g/dl (12.0-16.0); Imm Gran Abs Auto 0.02 X10*3/uL (0.00-0.03); Imm Gran Pct Auto 0.2 % (0.0-0.4); Lymphocytes Absolute Auto 0.3 X10*3/uL (1.2-4.9); MANUAL DIFF FLAG SCAN; Mean Corpuscular HGB Conc 34.1 g/dl (31.0-35.0); Mean Corpuscular Hemoglobin 29.4 pg (27.0-33.0); Mean Corpuscular Volume 86.4 fL (80.0-98.0); Mean Platelet Volume 9.7 fL (9.4-12.3); Monocytes Absolute Auto 0.2 X10*3/uL (0.1-1.2); Neutrophils Absolute Auto 8.4 x10*3/uL (2.0-8.3); Neutrophils Percent Auto 94.5 % (45-73); Platelet Count 284 X10*3/uL (160-400); Red Blood Count 3.67 X10*6/uL (4.20-5.50); Red Cell Distribution Width 13.2 % (11.0-16.0); SCAN SMEAR FLAG 1; White Blood Count 8.9 X10*3/uL (4.8-10.8)
[2024-05-28 05:45] LABS: Alanine Aminotransferase 29 U/L (0-31); Alkaline Phosphatase 76 U/L (39-117); Anion Gap 14 (12-20); Aspartate Amino Transferase 40 U/L (5-31); Bilirubin Total 0.4 mg/dL (0.0-1.0); Blood Urea Nitrogen 15 mg/dL (9-16); Calcium 9.6 mg/dL (8.4-10.2); Carbon Dioxide 23 mmol/L (22-29); Chloride 98 mmol/L (96-108); Creatinine Clr Calc Pharmacy 74.1; Estimated Glomerular Filt Rate > 60; Glucose Random 111 mg/dL (60-115); Potassium 4.4 mmol/L (3.3-5.1); Sodium 131 mmol/L (135-145); Total Protein 6.3 g/dL (6.5-8.0)
[2024-05-28 05:47] LABS: SLIDE REVIEW VERIFIED
[2024-05-28] MEDS: 0.9 % Sodium Chloride Flush 3 ML SYRINGE IVFLUSH (08:08)
--- NOTE | 2024-05-28 09:16 | MHC.CM.PN ---
Patient is Covid (+); CM spoke with Daughter/HCP/Lorin at [phone] and addressed IMM with her (original will be mailed certified letter to Lorin and a copy will be placed on the chart). Patient lives with her in an In-Law apartment attached to Lorin's home and she has a privately hired Homemaker 3X/week who also assists Patient's with showering. Home/resume said services is the goal and CM has initiated and will follow for dc planning. PCP is Dr. Liborio Cast.
--- NOTE | 2024-05-28 09:20 | PHA.MEDREC ---
Pharmacy Consult ? Medication Reconciliation Pharmacy has completed the medication reconciliation. Spoke to patient. Patient has not yet started PAXLOVID
[2024-05-28] MEDS: Ezetimibe 10 MG TABLET PO (13:59)
[2024-05-28] MEDS: Clopidogrel Bisulfate 75 MG TABLET PO (14:00)
[2024-05-28] MEDS: lisinopriL 2.5 MG TABLET PO (14:00)
--- NOTE | 2024-05-28 14:00 | PM.EVENT ---
Event Note Date of Service: 05/28/24 Event Note: Chart reviewed patient examined. Agree with H&P and plan as outlined overnight. Continue same Time Spent With Patient Time: Total time managing care of this patient today ____ minutes.
[2024-05-28] MEDS: Spironolactone 25 MG TABLET 12.5 MG PO (14:01)
[2024-05-28] MEDS: Metoprolol Succinate ER 50 MG TAB.ER.24H PO (14:03)
[2024-05-28] MEDS: Famotidine 20 MG TABLET PO (20:12)
[2024-05-28] MEDS: Atorvastatin Calcium 80 MG TABLET PO (20:12)
--- NOTE | 2024-05-28 21:31 | MHC.EDTECH ---
pt provided toiletries to clean up. pt very happy. no other needs at this time.
[2024-05-29 06:13] VITALS: PULSE 75; RESP 17; O2SAT 95
[2024-05-29 06:32] VITALS: BP 94/51; PULSE 81; RESP 19; TEMP 36.6; O2SAT 99
[2024-05-29 08:52] VITALS: BP 105/39; PULSE 86; RESP 16; TEMP 37.1; O2SAT 100
[2024-05-29] MEDS: Clopidogrel Bisulfate 75 MG TABLET PO (08:56)
[2024-05-29] MEDS: Apixaban 5 MG TABLET PO (08:56)
[2024-05-29] MEDS: dexAMETHasone sod phosphate 4 MG/ML VIAL 6 MG IVPUSH (08:56)
[2024-05-29] MEDS: Ezetimibe 10 MG TABLET PO (08:56)
[2024-05-29 08:57] VITALS: BP 97/45; PULSE 81
[2024-05-29] MEDS: Metoprolol Succinate ER 50 MG TAB.ER.24H PO (08:57)
[2024-05-29 10:33] VITALS: BP 137/69; PULSE 89; RESP 16; O2SAT 96
--- NOTE | 2024-05-29 10:36 | MHC.CM.PN ---
Patient has been medically cleared for dc to home, self care. Last IMM addressed yesterday.
--- NOTE | 2024-05-29 12:10 | PM.DS ---
DS: Providers Provider Date of Service: 05/29/24 Date of admission: 05/28/24 00:54 Primary care physician: Liborio Cast MD DS: Diagnosis Discharge Diagnosis (1) Hypoxia: Status: Acute (2) COVID-19 virus infection: Status: Acute DS: Summary Hospital Course Hospital Course: History of presenting illness: Date of Service: 05/28/24 Attending physician on admission: Dieudonne Ricks Chief Complaint: Shortness of breaths Jocelynn Farr is 84 years old woman with past medical history significant for HFrEF, atrial fibrillation on anticoagulation with Eliquis, CAD, essential hypertension hypercholesterolemia presents to the emergency department complaining of shortness on breath and productive cough. She did not report fever or chills. Denies headache, chest pain, abdominal pain, nausea, vomiting or diarrhea. She stated that her has COVID. Patient has been taking Parlovix. . In the ED, she was found to have O2 sat 88% with ambulation. Other vital signs are normal except for low-grade tachycardia. Blood workup showed leukocytosis of 11.6. Hemoglobin is 11.4 which is at baseline. Platelets are normal. INR is 1.4. Sodium is 129. There are no electrolyte imbalances. Transaminases are elevated. BNP is 649. Viral testing for COVID-19 is positive. CXR is negative. ED tx: None Hospital course: 84 year old female patient admitted to [facility] with a diagnosis of acute hypoxic respiratory failure due to COVID-19 infection treated with IV Decadron, bronchodilator therapy, analgesics and cough medication patient responded rapidly to above treatment hypoxia resolved patient feeling significantly better, denies fever, no shortness of breath therefore being discharged home on by mouth Decadron 6 mg daily for 5 more days recommend to cover face with sneezing and coughing and use cough medication as needed patient also noted to have mild hyponatremia likely due to diuretics recommend to hold diuretics for few days sodium level improved patient noted to have no acute evidence of CHF, she is recommended to continue all home medications including metoprolol and Eliquis for paroxysmal atrial fibrillation, famotidine for GERD and statin for hyperlipidemia. Time Attestation Discharge Coordination Time (in mins): 36 Quality: Safe Use of Opioids Does Pt have an Active Cancer Diagnosis on the Problem List?: No Quality: Stroke Does the patient have a stroke diagnosis?: No Physical Exam Vital Signs: Vital Signs: Last Vital Signs Temp 98.7 F 05/29/24 08:52 Pulse 89 05/29/24 10:33 Resp 16 05/29/24 10:33 BP 137/69 05/29/24 10:33 Pulse Ox 96 05/29/24 10:33 O2 Del Method Room Air 05/29/24 10:33 BMI result Body Mass Index 46.4 Const: Other: General awake alert x3, in no acute distress. Neck no JVD. CVS regular rate rhythm, Respiratory lungs clear to auscultation, no respiratory distress, no wheeze, no rhonchi. Gastrointestinal abdomen soft, non tender, bowel sounds audible Extremities no edema. Neuro non focal Skin no rash Psych appropriate affect DS: Data Data Completed and Pending Completed studies during hospitalization [Text1]: Procedures Introduction of Remdesivir Anti-infective into Peripheral Vein, Percutaneous Approach, [employer] 5 (12/12/22) Discharge Plan Discharge Anticipated Discharge Date/Time: 05/29/24 10:30 Patient Disposition: Home, Self-Care Discharge Diagnosis: Acute hypoxic respiratory failure due to COVID-19 infection Referrals: Po,Liborio Marin MD [Primary Care Provider] - 1 Week Discharge Medications: New dexamethasone 6 mg tablet 6 mg PO DAILY Qty: 5 0RF Continued ezetimibe 10 mg tablet 10 mg PO DAILY Qty: 90 3RF clopidogrel 75 mg tablet 75 mg PO DAILY Qty: 90 3RF metoprolol succinate 50 mg tablet extended release 24 hr 50 mg PO DAILY Qty: 90 3RF Eliquis 5 mg tablet 5 mg PO BID Qty: 180 3RF famotidine 20 mg tablet 20 mg PO BEDTIME Qty: 90 2RF rosuvastatin 20 mg tablet 20 mg PO BEDTIME Qty: 90 3RF torsemide 20 mg tablet 20 mg PO DAILY PRN (Reason: sob) Qty: 90 3RF calcium carbonate [Calcium 500] 500 mg calcium (1,250 mg) Tablet,Chewable 500 mg PO DAILY@1200 ipratropium bromide 42 mcg (0.06 %) spray,non-aerosol 2 spray INTRANASAL QID cholecalciferol (vitamin D3) 10 mcg (400 unit) capsule 10 mcg PO DAILY@1200 multivitamin Tablet 1 tab PO DAILY@1200 Held spironolactone 25 mg tablet 12.5 mg PO DAILY Qty: 90 3RF Hold Instructions: Resume on 06/01/24. lisinopril 2.5 mg tablet 2.5 mg PO DAILY Qty: 90 3RF Hold Instructions: Resume on 06/01/24. Discharge Orders: Discharge Order (Routine); Ordered 05/29/24 Ordered By: Charmaine Martinez Diet: Advance to usual diet Activity on Discharge: As tolerated Stand Alone Forms: Patient Portal Discharge page Print Language: Hungarian Care Plan Goals: Hypoxia due to COVID-19 infection resolved, take dexamethasone for 5 more days 1 tablet daily with food Hold Aldactone and lisinopril due to soft blood pressure resume on June 01 Cover face with sneezing and coughing Rest /take cough medication as needed / vitamin-C Health Concerns: Continue home medications as directed Plan of Treatment: Outpatient follow-up with primary care physician call for appointment Assessment: As above Discharge Date/Time: 05/29/24 10:53
== END 2024-05-29 10:53 | disposition home or self-care (01) | DRG 177 ==
LOC: HO.ED 05-28 01:29 → HO.EDOVER 05-28 01:32
PROVIDERS: Nurse Practitioner Family; Admitting Provider Internal Medicine; Emergency Provider Emergency Medicine Emergency Medical Services; PCP Internal Medicine; Visit Provider Hospitalist
DX: U07.1 COVID-19 (principal); J96.01 Acute respiratory failure with hypoxia; I50.22 Chronic systolic (congestive) heart failure; E87.1 Hypo-osmolality and hyponatremia; I48.0 Paroxysmal atrial fibrillation; T50.2X5A Adverse effect of carbonic-anhydrase inhibitors, benzothiadiazides and other diuretics, initial encounter; K21.9 Gastro-esophageal reflux disease without esophagitis; I25.10 Atherosclerotic heart disease of native coronary artery without angina pectoris; I11.0 Hypertensive heart disease with heart failure; E78.00 Pure hypercholesterolemia, unspecified; Z87.891 Personal history of nicotine dependence; Z79.01 Long term (current) use of anticoagulants; Z79.02 Long term (current) use of antithrombotics/antiplatelets; Z79.899 Other long term (current) drug therapy
CPT/HCPCS: 0241U; 36415; 71046; 80053; 83880; 83930; 83935; 84300; 85025; 85610; 99285; J1100

== ENCOUNTER → 2024-05-27 20:48 | Outpatient (BNV) | payer MEDICARE, SELFPAY ==
[2022-05-04 12:53] VITALS: BP 108/62; BP 132/70; BMI 23.3
== END ==
PROVIDERS: Emergency Provider Emergency Medicine Emergency Medical Services; PCP Internal Medicine; Visit Provider Internal Medicine
DX: R09.02 Hypoxemia (principal); U07.1 COVID-19
CPT/HCPCS: 99223; 99239; 99499

== ENCOUNTER 2024-07-24 10:48 | Outpatient (REF) | payer MEDICARE, SELFPAY ==
[2022-05-04 12:53] VITALS: BP 108/62; BP 132/70; BMI 23.3
[2024-07-24 13:39] LABS: MANUAL DIFF FLAG NO
[2024-07-24 13:51] LABS: B Type Natriuretic Peptide 551 pg/mL (<100)
[2024-07-24 13:57] LABS: Basophils Absolute Auto 0.1 X10*3/uL (0.0-0.2); Basophils Percent Auto 0.7 % (0-2); Eosinophils Absolute Auto 0.1 X10*3/uL (0.0-0.4); Eosinophils Percent Auto 0.6 % (0-4); Hematocrit 33.7 % (37.0-47.0); Imm Gran Abs Auto 0.03 X10*3/uL (0.00-0.03); Imm Gran Pct Auto 0.4 % (0.0-0.4); Lymphocytes Absolute Auto 0.9 X10*3/uL (1.2-4.9); Lymphocytes Percent Auto 11.1 % (20-40); Mean Corpuscular HGB Conc 32.6 g/dl (31.0-35.0); Mean Corpuscular Volume 88.9 fL (80.0-98.0); Mean Platelet Volume 10.6 fL (9.4-12.3); Monocytes Absolute Auto 0.9 X10*3/uL (0.1-1.2); Monocytes Percent Auto 10.7 % (2-11); Neutrophils Absolute Auto 6.3 x10*3/uL (2.0-8.3); Neutrophils Percent Auto 76.5 % (45-73); Platelet Count 277 X10*3/uL (160-400); Red Blood Count 3.79 X10*6/uL (4.20-5.50); Red Cell Distribution Width 14.1 % (11.0-16.0); White Blood Count 8.2 X10*3/uL (4.8-10.8)
[2024-07-24 14:09] LABS: Alanine Aminotransferase 16 U/L (0-31); Albumin Level 4.1 g/dL (3.5-5.0); Alkaline Phosphatase 70 U/L (39-117); Anion Gap 12 (12-20); Aspartate Amino Transferase 31 U/L (5-31); Bilirubin Total 0.3 mg/dL (0.0-1.0); Blood Urea Nitrogen 15 mg/dL (9-16); Calcium 9.4 mg/dL (8.4-10.2); Carbon Dioxide 25 mmol/L (22-29); Chloride 101 mmol/L (96-108); Estimated Glomerular Filt Rate > 60; Glucose Random 107 mg/dL (60-115); Potassium 4.6 mmol/L (3.3-5.1); Sodium 133 mmol/L (135-145); Total Protein 6.4 g/dL (6.5-8.0)
== END 2024-07-24 10:49 | disposition home or self-care (01) ==
LOC: HO.HMGCLDS 10:48
PROVIDERS: PCP Internal Medicine; Visit Provider Internal Medicine
DX: I50.9 Heart failure, unspecified (principal)
CPT/HCPCS: 36415; 80053; 83880; 85025

== ENCOUNTER 2024-08-15 14:33 | Outpatient (AMB) | payer MEDICARE, SELFPAY ==
[2022-05-04 12:53] VITALS: BP 108/62; BP 132/70; BMI 23.3
[2024-08-15 14:39] VITALS: BP 142/60; PULSE 83; O2SAT 97; BMI 22.3
--- NOTE | 2024-08-15 14:39 | MHC.PC.OV ---
Vital Signs 08/15/24 14:39 Height 5 ft 2 in Weight 122 lb BMI 22.3 BP 142/60 H Blood Pressure Location Lt brachial Position Sitting Pulse 83 Pulse Source Pulse Oximeter Pulse Oximetry (%) 97 Oxygen Delivery Method Room Air Intake Visit Reasons: a fib Escalator Attendant Required: No Accompanied by: Self / Same As Patient Allergies atorvastatin [Lipitor] Allergy (Unknown, Verified 08/15/24 14:39) Unknown lovastatin Allergy (Unknown, Verified 08/15/24 14:39) Unknown pneumococcal vaccine Allergy (Unknown, Verified 08/15/24 14:39) Unknown pravastatin Allergy (Unknown, Verified 08/15/24 14:39) Unknown sertraline Adverse Reaction (Intermediate, Verified 08/15/24 14:39) sweaty Tobacco use date assessed: 12/27/23 Fall risk assessment: 1 Fall in past year Last assessed Fall Risk: 08/15/24 Dental Screening Dental Screen Date: 04/02/24 HPI a fib HPI Details 84-year-old female with a history of hypertension, hypercholesterolemia generalized anxiety disorder coronary artery disease depression GERD ischemic cardiomyopathy with congestive heart failure atrial fibrillation coming in for follow-up. Last seen in May having had COVID infection. Review of the notes ER visit May 28 2024 shortness of breath and productive cough found to be hypoxemic at 88%. Diagnosis of acute hypoxic respiratory failure due to COVID-19 infection. Patient was given steroids bronchodilators patient was seen in the Urgent Center in April 18 for a fall having right arm bruise laceration repair done. PAtient is better right BP at home has been good. FOR[facility]LY [facility] Medical History Breast cancer screening by mammogram Nonrheumatic mitral valve regurgitation PAF (paroxysmal atrial fibrillation) Ischemic cardiomyopathy Atherosclerotic cardiovascular disease Congestive heart failure Overweight (BMI 25.0-29.9) Thyroid nodule Hemorrhoids Diverticulosis Hypercholesterolemia Hypertension Surgical History History of cardiac catheterization (~10/18/21) History of colonoscopy History of cataract surgery History of surgery Family History Father Hypertension Stroke CVD (cardiovascular disease) Mother Hypertension Stroke Social History Household Members: Spouse Housing: House Alcohol intake: never Patient Tobacco Use Status: Former Tobacco user Tobacco use type: Cigarette e-Cigarette/Vaping Use: Never Used Second Hand Smoke Exposure: No service: No Current occupational status: retired Cognitive needs: No Hearing needs: No Vision needs: Yes Questionnaire Thrive Questionnaire Date Thrive assessed: 05/28/24 TIMMY-7 AMB Questionnaire TIMMY-7 Date TIMMY - 7 assessed: 12/27/23 Source: Developed by Drs. Luis Ruiz, Jenny Trujillo, Santosh Meadows and colleagues, with an educational hiren from [employer]. Physical exam (Primary Care) Vital Signs: Last Vital Signs Pulse 83 08/15/24 14:39 BP 142/60 H 08/15/24 14:39 Pulse Ox 97 08/15/24 14:39 Oxygen Delivery Method Room Air 08/15/24 14:39 BMI result Body Mass Index 22.3 Tobacco/Smoking Status: Tobacco use Status Tobacco use date assessed 12/27/23 08/15/24 14:40 Patient Tobacco Use Status Former Tobacco user 08/15/24 14:40 Tobacco use type Cigarette 08/15/24 14:40 e-Cigarette/Vaping Use Never Used 08/15/24 14:40 Thrive Assessment: Date of Thrive Assessment Date Thrive assessed 05/28/24 08/15/24 14:40 Const General: alert; No acute distress Eyes Conjunctivae: conjunctivae normal Resp Auscultation: clear to auscultation bilaterally Cardio Rate: regular rate Rhythm: regular rhythm GI Inspection: Yes normal to inspection Extrem General: Yes normal to inspection and No edema Coding Level of Care Code Est Pt Level 4 (83682) Diagnoses COVID-19 virus infection U07.1 PAF (paroxysmal atrial fibrillation) I48.0 Acute on chronic congestive heart failure, unspecified heart failure type I50.9 Heart failure chronicity: acute on chronic Heart failure type: unspecified Ischemic cardiomyopathy I25.5 Coronary artery disease involving [place] coronary artery of [place] heart without angina pectoris I25.10 Coronary Disease-Associated Artery/Lesion type: [place] artery [place] vs. transplanted heart: [place] heart Associated angina: without angina Gastroesophageal reflux disease without esophagitis K21.9 Esophagitis presence: without esophagitis Situational depression F43.21 Essential hypertension I10 Hypertension type: essential hypertension Hypercholesterolemia E78.00 Bilateral hand numbness R20.0 Assessment & Plan Assessment & Plan (1) COVID-19 virus infection: Comment: May 2024 Code(s): U07.1 - COVID-19 Category: Medical Plan: Resolved (2) PAF (paroxysmal atrial fibrillation): Code(s): I48.0 - Paroxysmal atrial fibrillation Category: Medical Plan: Continue with anticoagulation. (3) Congestive heart failure: Comment: Congestive heart failure with reduced ejection fraction Code(s): I50.9 - Heart failure, unspecified Category: Medical Qualifiers: Heart failure chronicity: acute on chronic Heart failure type: unspecified Qualified Code(s): I50.9 - Heart failure, unspecified Plan: Continue with weighing daily and record and continue with the diuretics spironolactone torsemide beta rubén of metoprolol (4) Ischemic cardiomyopathy: Code(s): I25.5 - Ischemic cardiomyopathy Category: Medical Plan: Control the cholesterol, weight, blood pressure (5) Coronary artery disease: Code(s): I25.10 - Atherosclerotic heart disease of [place] coronary artery without angina pectoris Category: Medical Qualifiers: Coronary Disease-Associated Artery/Lesion type: [place] artery [place] vs. transplanted heart: [place] heart Associated angina: without angina Qualified Code(s): I25.10 - Atherosclerotic heart disease of [place] coronary artery without angina pectoris Plan: Control the cholesterol, weight, blood pressure on anticoagulation presently. (6) GERD (gastroesophageal reflux disease): Code(s): K21.9 - Gastro-esophageal reflux disease without esophagitis Category: Medical Qualifiers: Esophagitis presence: without esophagitis Qualified Code(s): K21.9 - Gastro-esophageal reflux disease without esophagitis Plan: Avoid the foods that causes that usually spicy foods, tomato products, juices, coffee, soda and foods that your sensitive to. After eating do not lie down, allow 3-4 hours before in lie down. And keep the head of bed above 30 degrees to avoid the acid from going up. (7) Situational depression: Code(s): F43.21 - Adjustment disorder with depressed mood Category: Medical Plan: Declined counseling (8) Hypertension: Code(s): I10 - Essential (primary) hypertension Category: Medical Qualifiers: Hypertension type: essential hypertension Qualified Code(s): I10 - Essential (primary) hypertension Plan: Continue with lisinopril 2.5 mg once a day metoprolol 50 mg once a day (9) Hypercholesterolemia: Code(s): E78.00 - Pure hypercholesterolemia, unspecified Category: Medical Plan: Avoid fried foods, chicken skin, eggs, butter margarine, pastries and meat. Be it pork or beef they have a lot of cholesterol on rosuvastatin 20 mg once a day Zetia 10 mg once a day February 2024 last test. (10) Bilateral hand numbness: Code(s): R20.0 - Anesthesia of skin Category: Medical Plan: Discussed about nerve conduction test and EMG Orders: Orders NE nerve conduction velocity Today R20.0 - Anesthesia of skin Free T4 (Free Thyroxine) 3 Months I48.0 - Paroxysmal atrial fibrillation Thyroid Stimulating Hormone 3 Months I48.0 - Paroxysmal atrial fibrillation Lipid Panel 3 Months E78.00 - Pure hypercholesterolemia, unspecified, I48.0 - Paroxysmal atrial fibrillation IRON PROFILE 3 Months I48.0 - Paroxysmal atrial fibrillation Vitamin B12 and Folate 3 Months I48.0 - Paroxysmal atrial fibrillation NE electromyogram (EMG) Today R20.0 - Anesthesia of skin Complete Blood Count Auto Diff 3 Months I48.0 - Paroxysmal atrial fibrillation Comprehensive Met. Panel 3 Months I48.0 - Paroxysmal atrial fibrillation B Type Natriuretic Peptide 3 Months I48.0 - Paroxysmal atrial fibrillation Reticulocyte Count 3 Months I48.0 - Paroxysmal atrial fibrillation
== END 2024-08-15 15:22 | disposition home or self-care (01) ==
PROVIDERS: PCP Internal Medicine; Visit Provider Internal Medicine
DX: U07.1 COVID-19 (principal); I48.0 Paroxysmal atrial fibrillation; I50.9 Heart failure, unspecified; I25.5 Ischemic cardiomyopathy; I25.10 Atherosclerotic heart disease of native coronary artery without angina pectoris; K21.9 Gastro-esophageal reflux disease without esophagitis; F43.21 Adjustment disorder with depressed mood; I10 Essential (primary) hypertension; E78.00 Pure hypercholesterolemia, unspecified; R20.0 Anesthesia of skin

== ENCOUNTER → 2024-08-15 14:33 | Outpatient (BNVA) | payer MEDICARE, SELFPAY ==
[2022-05-04 12:53] VITALS: BP 108/62; BP 132/70; BMI 23.3
== END ==
PROVIDERS: PCP Internal Medicine; Visit Provider Internal Medicine
DX: I48.0 Paroxysmal atrial fibrillation (principal); U07.1 COVID-19; I11.0 Hypertensive heart disease with heart failure; I50.9 Heart failure, unspecified; I25.5 Ischemic cardiomyopathy; I25.10 Atherosclerotic heart disease of native coronary artery without angina pectoris; K21.9 Gastro-esophageal reflux disease without esophagitis; F43.21 Adjustment disorder with depressed mood; E78.00 Pure hypercholesterolemia, unspecified; R20.0 Anesthesia of skin
CPT/HCPCS: 99212

== ENCOUNTER → 2024-09-10 12:57 | Outpatient (REF) | payer MEDICARE, SELFPAY ==
[2022-05-04 12:53] VITALS: BP 108/62; BP 132/70; BMI 23.3
--- NOTE | 2024-09-10 13:00 | CA_ITS ---
Transthoracic Echocardiogram Amended Patient (Last, First, Middle): Jocelynn Farr, Gender: Female Date of : 1940 Age: 84 Procedure Date: 09/10/2024 Procedure Type: Transthoracic Echocardiogram Location: OP Height: 154.94 cm Weight: 52.16 kg BSA: 1.49 m2 Heart Rate: bpm BP: 126 / 60 mmHg Clamp Remover: CLEMENTINA Referring MD: Davi Grande MD Severity Of Illness Coordinator: Kana Garcia MD Symptoms: I34.0 - Nonrheumatic mitral (valve) insufficiency Study Quality: Adequate ECG Rhythm: Sinus Conclusions: - 1. [id number] LV systolic dysfunction with LVEF of 40-45% with underlying regional wall motion abnormality consistent with ischemic cardiomyopathy with grade 2 diastolic dysfunction 2. Mildly dilated left atrium 3. Mild aortic regurgitation 4. Gctu-tm-ycnxagcn eccentric mitral regurgitation 5. Normal RV systolic pressure 6. Trivial pericardial effusion near the right atrium Findings Left Ventricle Normal left ventricular cavity size. There is normal left ventricular wall thickness. The left ventricular systolic function is mild to moderately decreased. The visually estimated ejection fraction is between 40-45%. Spectral Doppler is indicative of a pseudonormal filling pattern. Elevated left atrial and left ventricular end-diastolic pressures. E/E prime ratio is >15, consistent with elevated filling pressures. Evidence suggests grade II (moderate) diastolic dysfunction. Peak GLS is -15.5%, mildly reduced. Wall Motion Rest Echo Findings The apical inferior segment is hypokinetic. The inferoseptal wall, inferolateral wall, the basal inferior, mid inferior, and apical septum segments are akinetic. All other scored wall segments showed normal motion. Right Ventricle Normal right ventricular cavity size and systolic function. Atria The left atrium is mildly dilated. There is no evidence of interatrial shunt. The right atrium is normal in size. Aortic Valve There is mild calcification of the aortic valve. There is no aortic valve stenosis. There is mild aortic valve regurgitation. Mitral Valve There is mild anterior and moderate posterior mitral leaflet thickening. The posterior mitral leaflet has restricted mobility. There is moderate mitral annular calcification. There is mild to moderate mitral valve regurgitation. There is no mitral valve stenosis. Pulmonic Valve The pulmonic valve is likely normal. There is trace pulmonic valve regurgitation. Tricuspid Valve Normal tricuspid valve structure. There is mild tricuspid valve regurgitation. The right ventricular systolic pressure is normal. The right ventricular systolic pressure is 33 mmHg. Normal right atrial pressure. There is no evidence of pulmonary hypertension. Great Vessels All visible segments of the aorta are normal in size. The pulmonary artery was not well visualized. There is no dilatation of the ascending aorta. Small plaque is seen in the sino tubular ridge. Venous The inferior vena cava is normal in size and collapses greater than 50% with inspiration. Pericardium/Pleural There is a trivial loculated pericardial effusion overlying the right atrium. Prior Study Comparison Changes noted compared to prior study dated: 02/20/2023. LV systolic function has improved. severity of mitral regurgitation has reduced Measurements 2D Linear Measurements IVSd: 0.94 0.6-0.9/0.6-1.0 cm LVIDd: 4.99 3.9-5.3/4.2-5.9 cm LVIDd Index: 3.35 2.4-3.2/2.2-3.1 cm/m2 LVIDs: 3.93 2.0-3.6 cm LVPWd: 0.75 0.7-1.1 cm LA Diam: 3.80 2.7-3.8/3.0-4.0 cm LAIDs Index: 2.55 1.5-2.3 cm/m2 LV Mass: 179.81 67-162/88-224 g LV Mass Index: 120.67 43-95/49-115 g/m2 LVOT Diam: 2.20 3.0+(-)1.3 cm 2D Volumes LA Vol: 39.10 2D Systolic Function EF 4C: 46.10 >55% EF 2C: 41.80 >55% EF BiP: 43.30 >55% Mitral Valve MV VTI: 0.35 MV Pk Noah: 1.27 MV Mn Noah: 0.76 MV Pk Grad: 6.00 MV Mn Grad: 3.00 MV Pk E: 1.21 MV PK A: 0.78 MV Decel Time: 178.00 E/A: 1.60 E'Lateral: 6.20 E'Medial: 4.68 E/E' Med: 25.90 E/E' Lat: 19.50 PHT: 52.00 MVA PHT: 4.23 MVA Continuity: 2.15 Decel O'Brien: 6.82 MR VTI: 1.91 MR RAD: 0.30 Aortic Valve AoV Pk Noah: 1.22 AoV Mn Noah: 0.89 AoV VTI: 0.33 AoV Pk Grad: 6.00 Aov Mn Grad: 3.00 AFUA Cont.VTI: 2.24 AI Pk Noah: 3.57 AI O'Brien: 3.54 LVOT LVOT Pk Noah: 0.72 LVOT Mn Noah: 0.51 LVOT VTI: 0.20 LVOT Pk Grad: 2.00 LVOT Mn Grad: 1.00 LVOT Diam: 2.20 LVOT Area: 3.80 Diastolic Function MV Pk E: 1.21 MV Pk A: 0.78 E/A: 1.60 E'Medial: 4.68 E/E' Med: 25.90 E' Laterial: 6.20 E/E' Lat: 19.50 Right Ventricle TAPSE (mm): 23.60 TVS' Noah: 10.70 Tricuspid Valve TR Pk Noah: 2.73 TR Pk Grad: 30.00 RA Press: 3.00 RVSP: 33.00 Great Vessels Aorta Sinus of Valsalva: 3.00 2.0-3.5 cm Updated in Other Vendor System with Status of Final Kana Garcia MD electronically signed on 09/11/2024 4:48:09 PM with status of Final
== END ==
LOC: HO.CARD 12:57
PROVIDERS: PCP Internal Medicine; Visit Provider Internal Medicine
DX: I34.0 Nonrheumatic mitral (valve) insufficiency (principal)
CPT/HCPCS: 93306; 93356

== ENCOUNTER → 2024-09-10 13:00 | Outpatient (BNV) | payer MEDICARE, SELFPAY ==
[2022-05-04 12:53] VITALS: BP 108/62; BP 132/70; BMI 23.3
== END ==
PROVIDERS: PCP Internal Medicine; Visit Provider Internal Medicine Cardiovascular Disease
DX: I35.1 Nonrheumatic aortic (valve) insufficiency (principal); I34.0 Nonrheumatic mitral (valve) insufficiency; I36.1 Nonrheumatic tricuspid (valve) insufficiency
CPT/HCPCS: 93306; 93356

== ENCOUNTER 2024-09-18 13:06 | Outpatient (AMB) | payer MEDICARE, SELFPAY ==
[2022-05-04 12:53] VITALS: BP 108/62; BP 132/70; BMI 23.3
[2024-09-18 13:10] VITALS: BP 132/50; PULSE 85; BMI 22.1
--- NOTE | 2024-09-18 13:10 | A.OFFVIS_ITS ---
Vital Signs 09/18/24 13:10 Height 5 ft 2 in Weight 120 lb 13.013 oz BMI 22.1 BP 132/50 L Blood Pressure Location Lt brachial Position Sitting Pulse 85 Pulse Source Pulse Oximeter Intake Visit Reasons: 1 yr /f/up; [employer] Att[employer] Required: No Accompanied by: Daughter Allergies atorvastatin [Lipitor] Allergy (Unknown, Verified 08/15/24 14:39) Unknown lovastatin Allergy (Unknown, Verified 08/15/24 14:39) Unknown pneumococcal vaccine Allergy (Unknown, Verified 08/15/24 14:39) Unknown pravastatin Allergy (Unknown, Verified 08/15/24 14:39) Unknown sertraline Adverse Reaction (Intermediate, Verified 08/15/24 14:39) sweaty Medication List - Last Reconciled 09/18/24 by Davi Grande MD apixaban (Eliquis) 5 mg PO BID calcium carbonate (Calcium 500) 500 mg PO DAILY@1200 cholecalciferol (vitamin D3) 10 mcg PO DAILY@1200 clopidogrel 75 mg PO DAILY ezetimibe 10 mg PO DAILY famotidine 20 mg PO BEDTIME ipratropium bromide 2 sprays intranasal QID lisinopril 2.5 mg PO DAILY metoprolol succinate ER 50 mg PO DAILY multivitamin 1 tab PO DAILY@1200 rosuvastatin 20 mg PO BEDTIME spironolactone 12.5 mg (1/2 x 25 mg) PO DAILY torsemide 20 mg PO DAILY PRN HPI Comments Details: Jocelynn returns for follow up regarding coronary disease and cardiomyopathy. To recall, in September 2021, she had inferior STEMI and transferred to [facility]. She underwent cardiac catheterization that showed an occluded RCA but as the region was infarcted as well as because of late presentation and without any clear chest pain, she did not getting any interventions. Subsequently, she underwent detailed workup including echocardiogram, cardiac MRI among others and she was deemed to be on medical therapy only. Cardiac surgery thought that she was high cardiac risk. Since last seen, she states she is doing good. No cardiac complaints. No angina or shortness of breath or in fact anything cardiac sounding. [facility] Medical History Breast cancer screening by mammogram Nonrheumatic mitral valve regurgitation PAF (paroxysmal atrial fibrillation) Ischemic cardiomyopathy Atherosclerotic cardiovascular disease Congestive heart failure Overweight (BMI 25.0-29.9) Thyroid nodule Hemorrhoids Diverticulosis Hypercholesterolemia Hypertension Surgical History History of cardiac catheterization (~10/18/21) History of colonoscopy History of cataract surgery History of surgery Family History Father Hypertension Stroke CVD (cardiovascular disease) Mother Hypertension Stroke Social History Household Members: Spouse Housing: House Alcohol intake: never Patient Tobacco Use Status: Former Tobacco user Tobacco use type: Cigarette e-Cigarette/Vaping Use: Never Used Second Hand Smoke Exposure: No service: No Current occupational status: retired Cognitive needs: No Hearing needs: No Vision needs: Yes Review of Systems Const Denies chills, Denies fatigue, Denies fever(s), Denies weight gain and Denies weight loss ENT Denies dizziness Card Denies chest pain, Denies leg edema, Denies lightheadedness, Denies palpitations, Reports dyspnea on exertion, Denies orthopnea and Denies other Resp Denies cough and Reports dyspnea on exertion GI Denies hematochezia and Denies change in stool character Musc Denies abnormal gait, Denies muscle weakness, Denies numbness, Denies radiating pain into limb and Denies tingling Neuro Denies abnormal gait, Denies dizziness, Denies numbness and Denies tingling Endo Denies fatigue and Denies palpitations Physical Exam Vital Signs: Last Vital Signs Pulse 85 09/18/24 13:10 BP 132/50 L 09/18/24 13:10 BMI result Body Mass Index 22.1 Const General: comfortable and no acute distress Orientation/consciousness: patient oriented x3 HEENT Other: Unremarkable Head: Yes normal to inspection Neck Neck: Yes normal visual inspection Chest Chest palpation & inspection: normal inspection of the chest Resp Auscultation: clear to auscultation bilaterally Cardio Palpation: normal PMI Heart sounds: S1 normal heart sound present, S2 normal heart sound present, no gallops, no murmurs and no rubs GI Palpation (GI): Soft to palpation Back/Spine/Pelvis Other: unremarkable Skin General skin exam: no rashes or lesions noted Neuro General: patient oriented x3 Extrem General: Yes normal to inspection Psych Mental Status: mental status grossly normal Assessment & Plan Assessment & Plan (1) Atherosclerotic cardiovascular disease: Code(s): I25.10 - Atherosclerotic heart disease of [place] coronary artery without angina pectoris Category: Medical Plan: Per cardiac catheterization, occluded proximal RCA, collaterals from the left system. Heavily calcified left main and proximal LAD. 70% ostial left main stenosis. LAD with mild diffuse disease. Diagonal also had 90% ostial stenosis. Overall, multivessel CAD. Thought to be high risk for CABG as well as for PCI of left main. She is complaining of lot of bruising and hence we can stop the Plavix. Continue beta-blockers and statins/Zetia. (2) Ischemic cardiomyopathy: Code(s): I25.5 - Ischemic cardiomyopathy Category: Medical Plan: In the most recent echocardiogram, LVEF 40-45%. Wall motion abnormalities from underlying coronary disease. Previously, LVEF was 30-35%. Clinically, no congestive heart failure symptoms or signs. Diuretics listed as intermittent. Otherwise, on metoprolol/lisinopril/spironolactone. Entresto was too expensive. Farxiga was also expensive. (3) Nonrheumatic mitral valve regurgitation: Code(s): I34.0 - Nonrheumatic mitral (valve) insufficiency Category: Medical Plan: Cardiac MRI with postero-medial papillary muscle infarction, moderate mitral re gurgitation, posteriorly directed. Related to underlying CAD. The most recent echocardiogram, [id number] mitral regurgitation. Not clinically significant at this time. (4) PAF (paroxysmal atrial fibrillation): Code(s): I48.0 - Paroxysmal atrial fibrillation Category: Medical Plan: Detected during [facility] hospitalization. Continue Eliquis. Plan Discussed with family who came for appointment. Medications: Discontinued clopidogrel Discontinued Reason: Doctor's Order 75 mg PO DAILY 90 tabs 3RF Coding Level of Care Code Est Pt Level 4 (61607) Diagnoses Atherosclerotic cardiovascular disease I25.10 Ischemic cardiomyopathy I25.5 Nonrheumatic mitral valve regurgitation I34.0 PAF (paroxysmal atrial fibrillation) I48.0
== END 2024-09-18 13:37 | disposition home or self-care (01) ==
PROVIDERS: PCP Internal Medicine; Visit Provider Internal Medicine
DX: I25.10 Atherosclerotic heart disease of native coronary artery without angina pectoris (principal); I25.5 Ischemic cardiomyopathy; I34.0 Nonrheumatic mitral (valve) insufficiency; I48.0 Paroxysmal atrial fibrillation
CPT/HCPCS: 99214

== ENCOUNTER 2024-09-18 13:40 | Outpatient (REF) | payer MEDICARE, SELFPAY ==
[2022-05-04 12:53] VITALS: BP 108/62; BP 132/70; BMI 23.3
--- NOTE | 2024-09-18 13:43 | EMG_ITS ---
Chief complaint: Left arm/hand numbness, denies symptoms in the right side Reason for referral: Evaluate for Carpal Tunnel Syndrome Referred by: Dr. Cast Procedure done: Bilateral upper extremities NCS/EMG Precautions and/or limitations: On Eliquis The limb temperature was monitored continuously and remained between 32-36 degrees C during the performance of the NCS. Nerve Conduction Studies Anti Sensory Summary Table ?Stim Site NR Onset (ms) Norm Onset (ms) Peak (ms) Norm Peak (ms) O-P Amp (?V) Norm O-P Amp Site1 Site2 Delta-0 (ms) Dist (cm) Noah (m/s) Norm Noah (m/s) Left Median Anti Sensory (2nd Digit) Wrist ? 3.5 4.6 <3.6 9.3 >10 Wrist 2nd Digit 3.5 14.0 40 Right Median Anti Sensory (2nd Digit) Wrist ? 2.5 3.2 <3.6 27.4 >10 Wrist 2nd Digit 2.5 14.0 56 Left Radial Anti Sensory (Thumb) Forearm ? 1.7 2.3 <3.1 35.8 Forearm Thumb 1.7 0.0 Left Ulnar Anti Sensory (5th Digit) Wrist ? 2.6 3.5 <3.7 36.2 >15.0 Wrist 5th Digit 2.6 14.0 54 Right Ulnar Anti Sensory (5th Digit) Wrist ? 2.2 3.1 <3.7 33.3 >15.0 Wrist 5th Digit 2.2 14.0 64 Motor Summary Table ?Stim Site NR Onset (ms) Norm Onset (ms) O-P Amp (mV) Norm O-P Amp iAmp (mV) Amp (1st) (%) Site1 Site2 Delta-0 (ms) Dist (cm) Noah (m/s) Norm Noah (m/s) Left Median Motor (Abd Poll Brev) Wrist ? 4.8 <3.9 6.3 >4.5 7.5 100.0 Elbow Wrist 4.0 19.0 47 >45 Elbow ? 8.8 6.2 7.5 98.4 Right Median Motor (Abd Poll Brev) Wrist ? 3.4 <3.9 5.6 >4.5 6.9 100.0 Elbow Wrist 3.9 20.5 53 >45 Elbow ? 7.3 5.2 6.3 92.9 Left Ulnar Motor (Abd Dig Minimi) Wrist ? 3.0 <3.0 6.4 >5 7.2 100.0 B Elbow Wrist 2.6 14.0 54 >45 B Elbow ? 5.6 6.4 7.2 100.0 A Elbow B Elbow 1.6 10.0 62 >45 A Elbow ? 7.2 5.8 6.6 90.6 Right Ulnar Motor (Abd Dig Minimi) Wrist ? 3.0 <3.0 9.2 >5 9.9 100.0 B Elbow Wrist 3.0 16.0 53 >45 B Elbow ? 6.0 8.7 9.3 94.6 A Elbow B Elbow 1.3 10.0 77 >45 A Elbow ? 7.3 8.3 9.0 90.2 EMG ?Side Muscle Nerve Root Ins Act Fibs Psw Amp Dur Poly Recrt Int Pat Comment Left 1stDorInt Ulnar C8-T1 Nml Nml Nml Nml Nml 0 Nml Complete Left FlexCarRad Median C6-7 Nml Nml Nml Nml Nml 0 Nml Complete Left Biceps Musculocut C5-6 Nml Nml Nml Nml Nml 0 Nml Complete Left Triceps Radial C6-7-8 Nml Nml Nml Nml Nml 0 Nml Complete Left Deltoid Axillary C5-6 Nml Nml Nml Nml Nml 0 Nml Complete FINDINGS: Left median motor nerve showed prolonged distal latency, normal amplitude and normal conduction velocity. Left median sensory nerve showed prolonged peak latency and small amplitude. All other nerves tested were within normal. Concentric needle EMG was performed in selected muscles of the left upper extremity. Study did not reveal signs of electric abnormalities as shown in the table above. IMPRESSION: 1. This is an abnormal study. 2. There is electrodiagnostic evidence for left moderate-severe median neuropathy at the wrist, consistent with carpal tunnel syndrome. 3. There is no electrodiagnostic evidence for ulnar neuropathy, brachial plexopathy, or cervical radiculopathy. 4. There is no electrodiagnostic evidence for right median neuropathy. Thank you for your kind referral. Sarah Bridges MD, RAÚL Board Certified, [place] Board of Physical Medicine and Rehabilitation (ABPMR) Board Certified, [place] Board of Electrodiagnostic Medicine (ABEM) CODIN [phone] [facility]
== END 2024-09-18 13:41 | disposition home or self-care (01) ==
LOC: HO.NEURO 13:40
PROVIDERS: PCP Internal Medicine; Visit Provider Internal Medicine
DX: R20.0 Anesthesia of skin (principal); I25.10 Atherosclerotic heart disease of native coronary artery without angina pectoris; I25.5 Ischemic cardiomyopathy; I34.0 Nonrheumatic mitral (valve) insufficiency; I48.0 Paroxysmal atrial fibrillation; I25.2 Old myocardial infarction; Z79.01 Long term (current) use of anticoagulants
CPT/HCPCS: 95886; 95911; 99212

== ENCOUNTER → 2024-09-18 13:43 | Outpatient (BNV) | payer MEDICARE, SELFPAY ==
[2022-05-04 12:53] VITALS: BP 108/62; BP 132/70; BMI 23.3
== END ==
PROVIDERS: PCP Internal Medicine; Visit Provider Physical Medicine & Rehabilitation
DX: G56.02 Carpal tunnel syndrome, left upper limb (principal)
CPT/HCPCS: 95886; 95911

== ENCOUNTER 2024-10-30 13:48 | Outpatient (AMB) | payer MEDICARE, SELFPAY ==
[2022-05-04 12:53] VITALS: BP 108/62; BP 132/70; BMI 23.3
--- NOTE | 2024-10-30 13:59 | A.OFFVIS_ITS ---
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 EMG done on 09/18/24. Patient reports numbness for 6 months. She mentions that her symptoms are worse at night. Patient has noticed her numbness is through out all her finger. She has tried using a brace which is giving her relief. 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 Patient states that she experiences numbness and tingling in the entire left hand, but is not able to say for sure of the small finger is involved. She reports that her symptoms are intermittent, but daily, and worse at night. [facility] Medical History (Updated 09/18/24 @ 15:45 by Liborio Cast MD) Bilateral hand numbness Breast cancer screening by mammogram Nonrheumatic mitral valve regurgitation PAF (paroxysmal atrial fibrillation) Ischemic cardiomyopathy Atherosclerotic cardiovascular disease Congestive heart failure Overweight (BMI 25.0-29.9) Thyroid nodule Hemorrhoids Diverticulosis Hypercholesterolemia Hypertension Surgical History History of cardiac catheterization (~10/18/21) History of colonoscopy History of cataract surgery History of surgery Family History Father Hypertension Stroke CVD (cardiovascular disease) Mother Hypertension Stroke Social History (Updated 10/30/24 @ 14:14 by Martín Read) Household Members: Spouse Housing: House Alcohol intake: never Patient Tobacco Use Status: Former Tobacco user Tobacco use type: Cigarette e-Cigarette/Vaping Use: Never Used Second Hand Smoke Exposure: No service: No Current occupational status: retired Current occupation: right hand dominant Cognitive needs: No Hearing needs: No Vision needs: Yes Review of Systems Const All systems reviewed & are unremarkable except as noted in HPI and below Physical Exam Vital Signs: BMI result Body Mass Index 21.9 Extrem Other: Patient is alert, oriented, and in no acute distress. Neuro: Diminished sensation in the median nerve distribution of the left hand in the office today Vascular: Cap refill brisk Pain: No tenderness to palpation about the left hand or wrist No pain with range of motion left hand ROM: Patient is able to make a closed fist and extend all digits of the left hand fully and without difficulty Skin: No lacerations or abrasions. General: No ecchymosis, erythema, or evidence of infection. Psych: Appears grossly normal Affect normal Attitude cooperative Results Reviewed Results Reviewed: IMPRESSION: 1. This is an abnormal study. 2. There is electrodiagnostic evidence for left moderate-severe median neuropathy at the wrist, consistent with carpal tunnel syndrome. 3. There is no electrodiagnostic evidence for ulnar neuropathy, brachial plexopathy, or cervical radiculopathy. 4. There is no electrodiagnostic evidence for right median neuropathy. Thank you for your kind referral. Sarah Bridges MD, RAÚL Assessment & Plan Assessment & Plan (1) Left carpal tunnel syndrome: Comment: August 2024This is an abnormal study. 2. There is electrodiagnostic evidence for left moderate-severe median neuropathy at the wrist, consistent with carpal tunnel syndrome. 3. There is no electrodiagnostic evidence for ulnar neuropathy, brachial plexopathy, or cervical radiculopathy. 4. There is no electrodiagnostic evidence for right median neuropathy. Code(s): G56.02 - Carpal tunnel syndrome, left upper limb Category: Medical Plan 1. Carpal tunnel syndrome, left Symptoms intermittent, daily, worse at night I educated the patient about the condition. I discussed both operative and nonoperative treatment options. The patient would like to proceed with surgery. The risks and benefits of operative treatment were discussed with the patient and the patient wishes to proceed with surgery. These risks include, but are not limited to, risk of damage to blood vessels, nerves, tendons, infection, recurrence, incomplete relief of preoperative symptoms, persistent pain, possible need for further surgery, and the risks associated with regional blocks and/or anesthesia. Plan is to take the patient to the operating room at some point in the next few weeks for the following procedures: Left carpal tunnel release under local anesthesia All of the preoperative paperwork including the consent was discussed today. All of the patient's questions were answered in the clinic today. The patient understands that they will be in contact with our surgical consultant to discuss scheduling their procedure. Patient denies diabetes, asthma, heart issues, lung issues, kidney issues, or current smoking. Coding Level of Care Code New Pt Level 4 (21567) Diagnoses Left carpal tunnel syndrome G56.02
[2024-10-30 14:14] VITALS: BMI 21.9
== END 2024-10-30 14:45 | disposition home or self-care (01) ==
PROVIDERS: PCP Internal Medicine
DX: G56.02 Carpal tunnel syndrome, left upper limb (principal)
CPT/HCPCS: 99204

== ENCOUNTER → 2024-10-30 13:48 | Outpatient (BNVA) | payer MEDICARE, SELFPAY ==
[2022-05-04 12:53] VITALS: BP 108/62; BP 132/70; BMI 23.3
== END ==
PROVIDERS: PCP Internal Medicine
DX: G56.02 Carpal tunnel syndrome, left upper limb (principal)
CPT/HCPCS: 99202

== ENCOUNTER 2024-11-14 07:03 | Outpatient (REF) | payer MEDICARE, SELFPAY ==
[2022-05-04 12:53] VITALS: BP 108/62; BP 132/70; BMI 23.3
[2024-11-14 08:56] LABS: B Type Natriuretic Peptide 674 pg/mL (<100)
[2024-11-14 10:06] LABS: MANUAL DIFF FLAG NO
[2024-11-14 10:21] LABS: Basophils Absolute Auto 0.1 X10*3/uL (0.0-0.2); Basophils Percent Auto 0.7 % (0-2); Eosinophils Absolute Auto 0.1 X10*3/uL (0.0-0.4); Eosinophils Percent Auto 1.1 % (0-4); Imm Gran Abs Auto 0.02 X10*3/uL (0.00-0.03); Imm Gran Pct Auto 0.3 % (0.0-0.4); Immature Retic Fraction 9.1 % (3.0-15.9); Lymphocytes Absolute Auto 0.9 X10*3/uL (1.2-4.9); Lymphocytes Percent Auto 12.4 % (20-40); Mean Corpuscular HGB Conc 32.4 g/dl (31.0-35.0); Mean Corpuscular Hemoglobin 28.5 pg (27.0-33.0); Mean Corpuscular Volume 88.1 fL (80.0-98.0); Mean Platelet Volume 10.7 fL (9.4-12.3); Monocytes Absolute Auto 0.7 X10*3/uL (0.1-1.2); Monocytes Percent Auto 9.8 % (2-11); Neutrophils Absolute Auto 5.4 x10*3/uL (2.0-8.3); Neutrophils Percent Auto 75.7 % (45-73); Platelet Count 311 X10*3/uL (160-400); Red Blood Count 3.86 X10*6/uL (4.20-5.50); Red Cell Distribution Width 14.1 % (11.0-16.0); Reticulocyte Percent 1.3 % (0.5-1.8); Reticulocytes Absolute 0.049 X10*6/uL (0.026-0.095); White Blood Count 7.2 X10*3/uL (4.8-10.8)
[2024-11-14 10:54] LABS: Alanine Aminotransferase 22 U/L (0-31); Albumin Level 4.1 g/dL (3.5-5.0); Alkaline Phosphatase 70 U/L (39-117); Anion Gap 8 (12-20); Aspartate Amino Transferase 34 U/L (5-31); Bilirubin Total 0.4 mg/dL (0.0-1.0); Blood Urea Nitrogen 15 mg/dL (9-16); Calcium 9.7 mg/dL (8.4-10.2); Carbon Dioxide 28 mmol/L (22-29); Chloride 106 mmol/L (96-108); Cholesterol 125 mg/dL (<200); Estimated Glomerular Filt Rate > 60; Free T4 (Free Thyroxine) 1.09 ng/dL (0.71-1.85); Glucose Random 86 mg/dL (60-115); HDL Cholesterol 71 mg/dL (>40); Iron 64 mcg/dL (30-160); LDL Cholesterol Calculated 47 mg/dL (<100); Percent Iron Saturation 18 % (15-50); Potassium 4.8 mmol/L (3.3-5.1); Sodium 137 mmol/L (135-145); Total Iron Binding Capacity 347 mcg/dL (228-428); Total Protein 6.6 g/dL (6.5-8.0); Triglycerides 38 mg/dL (<150); Unsaturated Iron Binding 283 ug/dL
[2024-11-14 11:09] LABS: Folate 17.6 ng/mL (> or = 4.0); Vitamin B12 1137 pg/mL (200-900)
== END 2024-11-14 07:04 | disposition home or self-care (01) ==
LOC: HO.HMGCLDS 07:03
PROVIDERS: PCP Internal Medicine; Visit Provider Internal Medicine
DX: I48.0 Paroxysmal atrial fibrillation (principal); E78.00 Pure hypercholesterolemia, unspecified
CPT/HCPCS: 36415; 80053; 80061; 82607; 82746; 83540; 83880; 84439; 84443; 85025; 85045

== ENCOUNTER 2024-11-22 12:53 | Outpatient (AMB) | payer MEDICARE, SELFPAY ==
[2022-05-04 12:53] VITALS: BP 108/62; BP 132/70; BMI 23.3
--- NOTE | 2024-11-22 13:06 | MHC.PC.OV ---
Vital Signs 11/22/24 13:08 Height 5 ft 2 in Weight 123 lb 4 oz BMI 22.5 BP 126/72 Blood Pressure Location Lt brachial Position Sitting Pulse 82 Pulse Source Pulse Oximeter Temp 97.5 F Temp Source Skin Pulse Oximetry (%) 98 Oxygen Delivery Method Room Air Intake Visit Reasons: Fibrillation Intake Note: Patient is here to follow up on Fibrillation and lab results. Manager Of Clinical Required: No Mock Up Builder: Not Required per policy Accompanied by: Self / Same As Patient Allergies atorvastatin [Lipitor] Allergy (Unknown, Verified 11/22/24 13:08) Unknown lovastatin Allergy (Unknown, Verified 11/22/24 13:08) Unknown pneumococcal vaccine Allergy (Unknown, Verified 11/22/24 13:08) Unknown pravastatin Allergy (Unknown, Verified 11/22/24 13:08) Unknown sertraline Adverse Reaction (Intermediate, Verified 11/22/24 13:08) sweaty Tobacco use date assessed: 11/22/24 Fall risk assessment: No Falls in past year Last assessed Fall Risk: 11/22/24 Dental Screening Dental Screen Date: 11/22/24 Did you have a dental visit in the last 12 months?: Yes Did you have a dental problem in the last 6 months where you did not have access to dental care?: No Was dental information given to patient?: Patient has dentist HPI Fibrillation HPI Details The patient is an 84-year-old female presenting with the need for cardiac evaluation before undergoing a surgical procedure. She has previously been diagnosed with ischemic cardiomyopathy, currently characterized by a left ventricular ejection fraction of 45%, as observed in an echocardiogram from August. Her cardiac condition includes grade II diastolic dysfunction. Historically, she had a weaker heart with an ejection fraction of 30-35%, which has improved to 40-45%. She reports no symptoms of chest heaviness but experiences fatigue upon exertion. No recent stress tests have been conducted, but she describes no episodes of angina or shortness of breath with daily activities. Additionally, she has a chronic history of anemia, described as anemia of chronic disease, without noted symptomatology affecting her day-to-day activities. Laboratory work-up has demonstrated stable kidney and liver function, sufficient levels of B12 and folic acid, and well-controlled cholesterol at 47 mg/dL. She also reports normal white blood cell and platelet counts. Her blood pressure readings are within normal limits. She recently underwent carpal tunnel surgery on the 06 of January. No postoperative complications or follow-up issues were reported relating to this surgery. [facility] Medical History (Updated 09/18/24 @ 15:45 by Liborio Cast MD) Bilateral hand numbness Breast cancer screening by mammogram Nonrheumatic mitral valve regurgitation PAF (paroxysmal atrial fibrillation) Ischemic cardiomyopathy Atherosclerotic cardiovascular disease Congestive heart failure Overweight (BMI 25.0-29.9) Thyroid nodule Hemorrhoids Diverticulosis Hypercholesterolemia Hypertension Surgical History History of cardiac catheterization (~10/18/21) History of colonoscopy History of cataract surgery History of surgery Family History Father Hypertension Stroke CVD (cardiovascular disease) Mother Hypertension Stroke Social History (Updated 11/22/24 @ 13:12 by TALITA Rodriguez) Household Members: Spouse Housing: House Alcohol intake: current Alcohol intake frequency: a few times a week Alcohol type: wine Patient Tobacco Use Status: Former Tobacco user Tobacco use type: Cigarette e-Cigarette/Vaping Use: Never Used Second Hand Smoke Exposure: Yes service: No Current occupational status: retired Current occupation: right hand dominant Cognitive needs: No Hearing needs: No Vision needs: Yes (Glasses) Questionnaire PHQ-9 Over the last 2 weeks, how often have you been bothered by any of the following problems? 1. Little interest or pleasure in doing things: not at all 2. Feeling down, depressed, or hopeless: not at all 3. Trouble falling or staying asleep, or sleeping too much: not at all 4. Feeling tired or having little energy: not at all 5. Poor appetite or overeating: not at all 6. Feeling bad about yourself - or that you are a failure or have let yourself or your family down: not at all 7. Trouble concentrating on things, such as reading the newspaper or watching television: not at all 8. Moving or speaking so slowly that other people could have noticed. Or the opposite - being so fidgety or restless that you have been moving around a lot more than usual: not at all 9. Thoughts that you would be better off or of hurting yourself in some way: not at all Total score: 0 Depression Screening Interpretation: Negative Depression Screening Done: Yes Source: Developed by Drs. Luis Ruiz, Jenny Trujillo, Santosh Meadows and colleagues, with an educational hiren from [employer] Thrive Questionnaire Date Thrive assessed: 11/22/24 I am a: Patient What is your living situation today?: I have a steady place to live Within the past 12 months, did the food you bought not last and you didn't have the money to get more?: Never true Within the past 12 months, did you worry whether your food would run out before you got money to buy more?: Never true Do you have trouble paying for medicines?: No Do you have trouble getting transportation to medical appointments?: No Do you have trouble paying your heating and electricity bill?: No Do you have trouble taking care of your child, family member or friend?: No Do you have trouble with day-to-day activities such as bathing, preparing meals, shopping, managing finances, etc.?: No Are you currently unemployed and looking for a job?: No Are you interested in more education?: No Please select the resources that you would like help with: None Currently or been in a relationship where the following occur: No concerns reported THRIVE Score: 0 AUDIT C Alcohol Use Questionnaire (AUDIT-C) 1. How often do you have a drink containing alcohol?: 4 or more times a week 2. How many drinks containing alcohol do you have on a typical day when you are drinking?: 1 or 2 Total Score: 4 TIMMY-7 AMB Questionnaire TIMMY-7 Date TIMMY - 7 assessed: 11/22/24 Feeling nervous, anxious, or on edge: 0 = Not at all Not being able to stop or control worryin = Not at all Worrying too much about different things: 0 = Not at all Trouble relaxin = Not at all Being so restless that it is hard to sit still: 0 = Not at all Becoming easily annoyed or irritable: 0 = Not at all Feeling afraid as if something awful might happen: 0 = Not at all Total TIMMY-7 score (0-4 normal; 5-9 mild; 10-14 moderate; 15-21 severe): 0 Source: Developed by Jenny Clark Kurt Kroenke and colleagues, with an educational hiren from [employer] Physical exam (Primary Care) Vital Signs: Last Vital Signs Temp 97.5 F 11/22/24 13:08 Pulse 82 11/22/24 13:08 BP 126/72 11/22/24 13:08 Pulse Ox 98 11/22/24 13:08 Oxygen Delivery Method Room Air 11/22/24 13:08 BMI result Body Mass Index 22.5 Tobacco/Smoking Status: Tobacco use Status Tobacco use date assessed 11/22/24 11/22/24 13:13 Patient Tobacco Use Status Former Tobacco user 11/22/24 13:12 Tobacco use type Cigarette 11/22/24 13:12 e-Cigarette/Vaping Use Never Used 11/22/24 13:12 PHQ-9: PHQ-9 Score PHQ-9: Total score 0 11/22/24 13:30 Depression Screening Interpretation: Negative Thrive Assessment: Date of Thrive Assessment Date Thrive assessed 11/22/24 11/22/24 13:13 Currently or been in a relationship where the following occur: No concerns reported Const General: alert; No acute distress Eyes Conjunctivae: conjunctivae normal Resp Auscultation: clear to auscultation bilaterally Cardio Rate: regular rate Rhythm: regular rhythm GI Inspection: Yes normal to inspection Extrem General: Yes normal to inspection and No edema Coding Level of Care Code Est Pt Level 4 (46550) Complex EM visit Add On G2211 Diagnoses PAF (paroxysmal atrial fibrillation) I48.0 Ischemic cardiomyopathy I25.5 Coronary artery disease involving [place] coronary artery of [place] heart without angina pectoris I25.10 Associated angina: without angina Coronary Disease-Associated Artery/Lesion type: [place] artery [place] vs. transplanted heart: [place] heart Gastroesophageal reflux disease without esophagitis K21.9 Esophagitis presence: without esophagitis Essential hypertension I10 Hypertension type: essential hypertension Hypercholesterolemia E78.00 Generalized anxiety disorder F41.1 Left carpal tunnel syndrome G56.02 Assessment & Plan Assessment & Plan (1) PAF (paroxysmal atrial fibrillation): Code(s): I48.0 - Paroxysmal atrial fibrillation Category: Medical (2) Ischemic cardiomyopathy: Code(s): I25.5 - Ischemic cardiomyopathy Category: Medical (3) Coronary artery disease: Code(s): I25.10 - Atherosclerotic heart disease of [place] coronary artery without angina pectoris Category: Medical Qualifiers: Associated angina: without angina Coronary Disease-Associated Artery/Lesion type: [place] artery [place] vs. transplanted heart: [place] heart Qualified Code(s): I25.10 - Atherosclerotic heart disease of [place] coronary artery without angina pectoris (4) GERD (gastroesophageal reflux disease): Code(s): K21.9 - Gastro-esophageal reflux disease without esophagitis Category: Medical Qualifiers: Esophagitis presence: without esophagitis Qualified Code(s): K21.9 - Gastro-esophageal reflux disease without esophagitis (5) Hypertension: Code(s): I10 - Essential (primary) hypertension Category: Medical Qualifiers: Hypertension type: essential hypertension Qualified Code(s): I10 - Essential (primary) hypertension (6) Hypercholesterolemia: Code(s): E78.00 - Pure hypercholesterolemia, unspecified Category: Medical (7) Generalized anxiety disorder: Code(s): F41.1 - Generalized anxiety disorder Category: Medical (8) Left carpal tunnel syndrome: Comment: August 2024This is an abnormal study. 2. There is electrodiagnostic evidence for left moderate-severe median neuropathy at the wrist, consistent with carpal tunnel syndrome. 3. There is no electrodiagnostic evidence for ulnar neuropathy, brachial plexopathy, or cervical radiculopathy. 4. There is no electrodiagnostic evidence for right median neuropathy. Code(s): G56.02 - Carpal tunnel syndrome, left upper limb Category: Medical Plan - Recommend cardiology consultation prior to the planned surgical procedure to reassess cardiac risks. - Monitor cardiac status, focusing on symptoms of exertional fatigue, potential diastolic dysfunction impact, and overall cardiac function improvement. - Manage anemia of chronic disease conservatively given stable counts and no symptomatic anemia. - Continue routine monitoring of cholesterol levels and reinforce lifestyle measures to keep cardiovascular risks minimized. - Advise avoidance of overexertion and encourage attention to signs of congestive heart failure, such as undue fatigue or edema. - Ensure follow-up with primary care for routine health maintenance, including consideration of pending tetanus vaccination and reassessment of bone density study needs. Orders: Referrals Cardiology Referral I25.5 - Ischemic cardiomyopathy
[2024-11-22 13:08] VITALS: BP 126/72; PULSE 82; TEMP 36.4; O2SAT 98; BMI 22.5
== END 2024-11-22 13:46 | disposition home or self-care (01) ==
PROVIDERS: PCP Internal Medicine; Visit Provider Internal Medicine
DX: I48.0 Paroxysmal atrial fibrillation (principal); I25.5 Ischemic cardiomyopathy; I25.10 Atherosclerotic heart disease of native coronary artery without angina pectoris; K21.9 Gastro-esophageal reflux disease without esophagitis; I10 Essential (primary) hypertension; E78.00 Pure hypercholesterolemia, unspecified; F41.1 Generalized anxiety disorder; G56.02 Carpal tunnel syndrome, left upper limb

== ENCOUNTER → 2024-11-22 12:53 | Outpatient (BNVA) | payer MEDICARE, SELFPAY ==
[2022-05-04 12:53] VITALS: BP 108/62; BP 132/70; BMI 23.3
== END ==
PROVIDERS: PCP Internal Medicine; Visit Provider Internal Medicine
DX: I48.0 Paroxysmal atrial fibrillation (principal); I25.5 Ischemic cardiomyopathy; I25.10 Atherosclerotic heart disease of native coronary artery without angina pectoris; K21.9 Gastro-esophageal reflux disease without esophagitis; I10 Essential (primary) hypertension; E78.00 Pure hypercholesterolemia, unspecified; F41.1 Generalized anxiety disorder; G56.02 Carpal tunnel syndrome, left upper limb
CPT/HCPCS: 99212

== ENCOUNTER 2025-01-06 10:22 | Day surgery (SDC) | payer MEDICARE, SELFPAY ==
[2022-05-04 12:53] VITALS: BP 108/62; BP 132/70; BMI 23.3
--- NOTE | 2025-01-06 10:38 | P.OP_ITS ---
Operative Note Operative Note Date of Service: 01/06/25 Narrative: Preop diagnosis: 1. Left Carpal tunnel syndrome Postop diagnosis: same Procedure: 1. Left Carpal tunnel release Surgeon: Archana Nickerson MD Child Protection Specialist: None Anesthesia: local block using 1% lidocaine with epinephrine Findings: Thickened transverse carpal ligament. EBL: Less than 5 mL Specimens: None Complications: None Disposition: Brought to recovery room in stable condition Plan: Follow-up for 10-14 days for wound check and suture removal Indications: The patient is 84 years old, with left carpal tunnel syndrome that has been unresponsive to nonoperative management. The risks and benefits of operative treatment including but not limited to risk of damage to blood vessels, nerves, tendons, infection, persistent pain, persistent symptoms, or possible need for additional surgery were discussed with the patient and the patient wishes to proceed with surgery. Procedure: Once consent was obtained a local block was performed using a combination of 1% lidocaine with epinephrine. The patient was then brought back to the operating suite and placed on the operative table in supine position. The left upper extremity was prepped and draped in a standard surgical fashion. Once assured that we had a good block, a 2.0 cm longitudinal incision was made centered over the carpal tunnel. The incision was made through the skin to the subcutaneous tissues using a #15 blade. Dissection was made down to the level of the transverse carpal ligament with care being taken to protect the palmar cutaneous nerve. Once the transverse carpal ligament was clearly visualized, a longitudinal incision was made in the transverse carpal ligament 1st using a #15 blade, then using tenotomy scissors under direct visualization. Care was taken to look for and protect the motor branch of the median nerve when seen in this area. Once satisfied with our carpal tunnel release the wound was copiously irrigated with normal saline and hemostasis was obtained with a brief period of local pressure. The skin edges were reapproximated with some 5.0 nylon suture material and a sterile dressing was applied. The patient appears to have tolerated the procedure well and with no complicatio ns. All digits were well vascularized at the conclusion of the case.
--- NOTE | 2025-01-06 10:38 | MHC.SHP ---
Pre-Procedural Eval Section A - 24 Hr Update-Section A only Date of Service: 01/06/25 The patient is an INPATIENT: No Changes since office visit: No Cold of Flu in the past 2 weeks, No New Medical Problems, No Changes in Medication and No Patient answered all questions The patient has been examined within 24 hours of the surgical procedure. The History & Physical has been completed within 30 days and I have reviewed it.: Yes Section B - Complete if H&P > 30 days Chief Complaint: Carpal tunnel syndrome, left upper limb Allergies: Allergies Allergy/AdvReac Type Severity Reaction Status Date / Time atorvastatin [Lipitor] Allergy Unknown Unknown Verified 11/22/24 13:08 lovastatin Allergy Unknown Unknown Verified 11/22/24 13:08 pneumococcal vaccine Allergy Unknown Unknown Verified 11/22/24 13:08 pravastatin Allergy Unknown Unknown Verified 11/22/24 13:08 sertraline AdvReac Intermediate sweaty Verified 11/22/24 13:08 Plan Diagnosis/Plan: Unchanged I have reviewed the history and physical and performed a pertinent physical examination on my patient. No changes have occurred unless specified. Time Spent With Patient Time: Total time managing care of this patient today ____ minutes.
[2025-01-06 10:53] VITALS: BP 149/40; PULSE 85; RESP 16; TEMP 37; O2SAT 97; BMI 22.5
[2025-01-06 11:58] VITALS: BP 171/52; PULSE 87; RESP 20; O2SAT 96
== END 2025-01-06 11:59 | disposition home or self-care (01) ==
PROVIDERS: PCP Internal Medicine; Visit Provider Orthopaedic Surgery
PROC: (CPT 64721; principal; 2025-01-06 11:30)
DX: G56.02 Carpal tunnel syndrome, left upper limb (principal); R20.0 Anesthesia of skin; R20.2 Paresthesia of skin; I25.10 Atherosclerotic heart disease of native coronary artery without angina pectoris; I11.0 Hypertensive heart disease with heart failure; I50.9 Heart failure, unspecified; I25.5 Ischemic cardiomyopathy; I48.0 Paroxysmal atrial fibrillation; E78.00 Pure hypercholesterolemia, unspecified; E04.1 Nontoxic single thyroid nodule; E66.3 Overweight; Z68.21 Body mass index [BMI] 21.0-21.9, adult; Z88.8 Allergy status to other drugs, medicaments and biological substances; Z87.891 Personal history of nicotine dependence
CPT/HCPCS: 64721; J0171; J2003

== ENCOUNTER → 2025-01-06 10:22 | Outpatient (BNV) | payer MEDICARE, SELFPAY ==
[2022-05-04 12:53] VITALS: BP 108/62; BP 132/70; BMI 23.3
== END ==
PROVIDERS: PCP Internal Medicine; Visit Provider Orthopaedic Surgery
DX: G56.02 Carpal tunnel syndrome, left upper limb (principal)
CPT/HCPCS: 64721

== ENCOUNTER 2025-01-22 13:53 | Outpatient (AMB) | payer MEDICARE, SELFPAY ==
[2022-05-04 12:53] VITALS: BP 108/62; BP 132/70; BMI 23.3
[2025-01-22 14:33] VITALS: BMI 22.5
--- NOTE | 2025-01-22 14:33 | MHC.OFFVIS ---
Vital Signs 01/22/25 14:33 Height 5 ft 2 in Weight 123 lb BMI 22.5 Intake Visit Reasons: PO LT CTR 01/06/25 AR Intake Note: Jocelynn is an 84 year old female who presents today for a post operative LT CTR on 01/06/25 AR. Sutures removed and steri-strips applied. Patient reports that she is doing well, states no pain. Her numbness and tingling has subsided. Denies drainage. Allergies atorvastatin [Lipitor] Allergy (Unknown, Verified 01/22/25 14:35) Unknown lovastatin Allergy (Unknown, Verified 01/22/25 14:35) Unknown pneumococcal vaccine Allergy (Unknown, Verified 01/22/25 14:35) Unknown pravastatin Allergy (Unknown, Verified 01/22/25 14:35) Unknown sertraline Adverse Reaction (Intermediate, Verified 01/22/25 14:35) sweaty HPI HPI PO LT CTR 01/06/25 AR: Details: Jocelynn is an 84 year old female who presents today for a post operative LT CTR on 01/06/25 AR. Sutures removed and steri-strips applied. Patient reports that she is doing well, states no pain. Her numbness and tingling has subsided. Denies drainage. [facility] Medical History (Updated 09/18/24 @ 15:45 by Liborio Cast MD) Bilateral hand numbness Breast cancer screening by mammogram Nonrheumatic mitral valve regurgitation PAF (paroxysmal atrial fibrillation) Ischemic cardiomyopathy Atherosclerotic cardiovascular disease Congestive heart failure Overweight (BMI 25.0-29.9) Thyroid nodule Hemorrhoids Diverticulosis Hypercholesterolemia Hypertension Surgical History History of cardiac catheterization (~10/18/21) History of colonoscopy History of cataract surgery History of surgery Family History Father Hypertension Stroke CVD (cardiovascular disease) Mother Hypertension Stroke Social History (Updated 11/22/24 @ 13:12 by TALITA Rodriguez) Household Members: Spouse Housing: House Alcohol intake: current Alcohol intake frequency: a few times a week Alcohol type: wine Patient Tobacco Use Status: Former Tobacco user Tobacco use type: Cigarette e-Cigarette/Vaping Use: Never Used Second Hand Smoke Exposure: Yes service: No Current occupational status: retired Current occupation: right hand dominant Cognitive needs: No Hearing needs: No Vision needs: Yes (Glasses) Review of Systems Const All systems reviewed & are unremarkable except as noted in HPI and below Physical Exam Vital Signs: BMI result Body Mass Index 22.5 Extrem Other: Patient is alert, oriented, and in no acute distress. Neuro: Normal sensation of the tips of all digits of the left hand at this time Vascular: Cap refill brisk Pain: No tenderness to palpation about the incision site noted on volar left wrist No pain with range of motion of the left hand ROM: Patient is able to flex and extend all digits of the left hand fully and without difficulty Skin: Well approximated and well healing incision site noted in the volar left wrist No lacerations or abrasions. General: No ecchymosis, erythema, or evidence of infection. Psych: Appears grossly normal Affect normal Attitude cooperative Assessment & Plan Assessment & Plan (1) Left carpal tunnel syndrome: Comment: August 2024This is an abnormal study. 2. There is electrodiagnostic evidence for left moderate-severe median neuropathy at the wrist, consistent with carpal tunnel syndrome. 3. There is no electrodiagnostic evidence for ulnar neuropathy, brachial plexopathy, or cervical radiculopathy. 4. There is no electrodiagnostic evidence for right median neuropathy. Code(s): G56.02 - Carpal tunnel syndrome, left upper limb Category: Medical Plan 1. Status post left carpal tunnel release DOS 01/06/2025 Patient appears to be recovering well postoperatively Patient is educated about the typical recovery course At this time, patient was informed she will require no further acute follow-up with us, as she appears to be recovering quite well Patient was amenable to this plan Follow-up as needed with any acute concerns Coding Level of Care Code Global (30026) Diagnoses Left carpal tunnel syndrome G56.02
== END 2025-01-22 14:45 | disposition home or self-care (01) ==
LOC: HO.HOS 13:53
PROVIDERS: PCP Internal Medicine
DX: G56.02 Carpal tunnel syndrome, left upper limb (principal)
CPT/HCPCS: 99024

== ENCOUNTER → 2025-01-22 13:53 | Outpatient (BNVA) | payer MEDICARE, SELFPAY ==
[2022-05-04 12:53] VITALS: BP 108/62; BP 132/70; BMI 23.3
== END ==
PROVIDERS: PCP Internal Medicine
DX: Z47.89 Encounter for other orthopedic aftercare (principal); Z98.890 Other specified postprocedural states
CPT/HCPCS: 99212

== ENCOUNTER 2025-03-04 14:14 | Outpatient (AMB) | payer MEDICARE, SELFPAY ==
[2022-05-04 12:53] VITALS: BP 108/62; BP 132/70; BMI 23.3
[2025-03-04 14:19] VITALS: BP 138/62; PULSE 85; O2SAT 97; BMI 22.9
--- NOTE | 2025-03-04 14:19 | A.OFFPC_ITS ---
Vital Signs 03/04/25 14:19 Height 5 ft 2 in Weight 125 lb BMI 22.9 BP 138/62 Blood Pressure Location Lt brachial Position Sitting Pulse 85 Pulse Source Pulse Oximeter Pulse Oximetry (%) 97 Oxygen Delivery Method Room Air Intake Visit Reasons: 3 Month F/U Allergies atorvastatin [Lipitor] Allergy (Unknown, Verified 03/04/25 14:20) Unknown lovastatin Allergy (Unknown, Verified 03/04/25 14:20) Unknown pneumococcal vaccine Allergy (Unknown, Verified 03/04/25 14:20) Unknown pravastatin Allergy (Unknown, Verified 03/04/25 14:20) Unknown sertraline Adverse Reaction (Intermediate, Verified 03/04/25 14:20) sweaty Medication List - Last Reconciled 03/04/25 by Liborio Cast MD apixaban (Eliquis) 5 mg PO BID calcium carbonate (Calcium 500) 500 mg PO DAILY@1200 cholecalciferol (vitamin D3) 10 mcg PO DAILY@1200 ezetimibe 10 mg PO DAILY famotidine 20 mg PO BEDTIME ipratropium bromide 2 sprays intranasal QID lisinopril 2.5 mg PO DAILY metoprolol succinate ER 50 mg PO DAILY multivitamin 1 tab PO DAILY@1200 rosuvastatin 20 mg PO BEDTIME spironolactone 12.5 mg (1/2 x 25 mg) PO DAILY Tobacco use date assessed: 11/22/24 Fall risk assessment: No Falls in past year Last assessed Fall Risk: 03/04/25 Dental Screening Dental Screen Date: 11/22/24 [facility] Medical History (Updated 03/04/25 @ 14:35 by Liborio Cast MD) Bilateral hand numbness Breast cancer screening by mammogram Nonrheumatic mitral valve regurgitation PAF (paroxysmal atrial fibrillation) Ischemic cardiomyopathy Atherosclerotic cardiovascular disease Congestive heart failure Overweight (BMI 25.0-29.9) Thyroid nodule Hemorrhoids Diverticulosis Hypercholesterolemia Hypertension Surgical History History of cardiac catheterization (~10/18/21) History of colonoscopy History of cataract surgery History of surgery Family History Father Hypertension Stroke CVD (cardiovascular disease) Mother Hypertension Stroke Social History (Updated 11/22/24 @ 13:12 by HEMANTH Rodriguez Household Members: Spouse Housing: House Alcohol intake: current Alcohol intake frequency: a few times a week Alcohol type: wine Patient Tobacco Use Status: Former Tobacco user Tobacco use type: Cigarette e-Cigarette/Vaping Use: Never Used Second Hand Smoke Exposure: Yes service: No Current occupational status: retired Current occupation: right hand dominant Cognitive needs: No Hearing needs: No Vision needs: Yes (Glasses) Questionnaire PHQ-9 Over the last 2 weeks, how often have you been bothered by any of the following problems? 1. Little interest or pleasure in doing things: several days 2. Feeling down, depressed, or hopeless: not at all 3. Trouble falling or staying asleep, or sleeping too much: not at all 4. Feeling tired or having little energy: not at all 5. Poor appetite or overeating: not at all 6. Feeling bad about yourself - or that you are a failure or have let yourself or your family down: not at all 7. Trouble concentrating on things, such as reading the newspaper or watching television: not at all 8. Moving or speaking so slowly that other people could have noticed. Or the opposite - being so fidgety or restless that you have been moving around a lot more than usual: not at all 9. Thoughts that you would be better off or of hurting yourself in some way: not at all Total score: 1 Source: Developed by Drs. Luis Ruiz, Jenny Trujillo, Santosh Meadows and colleagues, with an educational hiren from [employer] ([employer]). Thrive Questionnaire Date Thrive assessed: 11/22/24 TIMMY-7 AMB Questionnaire TIMMY-7 Date TIMMY - 7 assessed: 11/22/24 Source: Developed by Drs. Luis Ruiz, Jenny Trujillo, Santosh Meadows and colleagues, with an educational hiren from [employer] ([employer]). Physical exam (Primary Care) Vital Signs: Last Vital Signs Pulse 85 03/04/25 14:19 BP 138/62 03/04/25 14:19 Pulse Ox 97 03/04/25 14:19 Oxygen Delivery Method Room Air 03/04/25 14:19 BMI result Body Mass Index 22.9 Tobacco/Smoking Status: Tobacco use Status Tobacco use date assessed 11/22/24 03/04/25 14:20 Patient Tobacco Use Status Former Tobacco user 03/04/25 14:20 Tobacco use type Cigarette 03/04/25 14:20 e-Cigarette/Vaping Use Never Used 03/04/25 14:20 PHQ-9: PHQ-9 Score PHQ-9: Total score 1 03/04/25 14:54 Thrive Assessment: Date of Thrive Assessment Date Thrive assessed 11/22/24 03/04/25 14:20 Const General: alert; No acute distress Eyes Conjunctivae: conjunctivae normal Resp Auscultation: clear to auscultation bilaterally Cardio Rate: regular rate Rhythm: regular rhythm GI Inspection: Yes normal to inspection Extrem General: Yes normal to inspection and No edema Immunizations Tenivac (PF) 5 Lf unit-2 Lf unit/0.5 mL intramuscular suspension Performing Provider: Liborio Cast MD Performing [facility] [place] [facility] Administered by: Luz Ring CMA on 03/04/25 14:54 Dose Route Admin Location Dispensed Lot Number Expiration Date [facility] Insurance Job Titles 0.5 mL IM Right Deltoid 0.5 mL [id number] 12/21/26 [id number] [employer] VIS Given Date VIS Provided VIS Publication Date 03/04/25 Single Vaccine 21 Eligibility Eligibility Date Funding Source Not [employer] Eligible 03/04/25 Private Coding Level of Care Code Est Pt Level 4 (12245) Complex EM visit Add On G2211 Diagnoses Left carpal tunnel syndrome G56.02 PAF (paroxysmal atrial fibrillation) I48.0 Acute on chronic congestive heart failure, unspecified heart failure type I50.9 Heart failure chronicity: acute on chronic Heart failure type: unspecified Coronary artery disease involving seminole coronary artery of seminole heart without angina pectoris I25.10 Coronary Disease-Associated Artery/Lesion type: seminole artery [place] vs. transplanted heart: seminole heart Associated angina: without angina Gastroesophageal reflux disease without esophagitis K21.9 Esophagitis presence: without esophagitis Generalized anxiety disorder F41.1 Essential hypertension I10 Hypertension type: essential hypertension Hypercholesterolemia E78.00 Assessment & Plan Assessment & Plan (1) Left carpal tunnel syndrome: Comment: August 2024This is an abnormal study. 2. There is electrodiagnostic evidence for left moderate-severe median neuropathy at the wrist, consistent with carpal tunnel syndrome. 3. There is no electrodiagnostic evidence for ulnar neuropathy, brachial plexopathy, or cervical radiculopathy. 4. There is no electrodiagnostic evidence for right median neuropathy. Left carpal tunnel release December 2024 Code(s): G56.02 - Carpal tunnel syndrome, left upper limb Category: Medical Plan: December 2024 left carpal tunnel release. (2) PAF (paroxysmal atrial fibrillation): Code(s): I48.0 - Paroxysmal atrial fibrillation Category: Medical Plan: Continue with anticoagulation twice a day year of blood work requested (3) Congestive heart failure: Comment: Congestive heart failure with reduced ejection fraction Code(s): I50.9 - Heart failure, unspecified Category: Medical Qualifiers: Heart failure chronicity: acute on chronic Heart failure type: unspecified Qualified Code(s): I50.9 - Heart failure, unspecified Plan: Continue with spironolactone and torsemide but will need blood work. switching torsemide to furosemided. she did not feel good with torsemide (4) Coronary artery disease: Code(s): I25.10 - Atherosclerotic heart disease of seminole coronary artery without angina pectoris Category: Medical Qualifiers: Coronary Disease-Associated Artery/Lesion type: seminole artery [place] vs. transplanted heart: seminole heart Associated angina: without angina Qualified Code(s): I25.10 - Atherosclerotic heart disease of seminole coronary artery without angina pectoris Plan: Control the cholesterol, weight, blood pressure, on anticoagulation (5) GERD (gastroesophageal reflux disease): Code(s): K21.9 - Gastro-esophageal reflux disease without esophagitis Category: Medical Qualifiers: Esophagitis presence: without esophagitis Qualified Code(s): K21.9 - Gastro-esophageal reflux disease without esophagitis Plan: Avoid the foods that causes that usually spicy foods, tomato products, juices, coffee, soda and foods that your sensitive to. After eating do not lie down, allow 3-4 hours before in lie down. And keep the head of bed above 30 degrees to avoid the acid from going up. (6) Generalized anxiety disorder: Code(s): F41.1 - Generalized anxiety disorder Category: Medical Plan: Stable (7) Hypertension: Code(s): I10 - Essential (primary) hypertension Category: Medical Qualifiers: Hypertension type: essential hypertension Qualified Code(s): I10 - Essential (primary) hypertension Plan: Continue with blood pressure medication. Decrease salt intake and exercise on spironolactone metoprolol lisinopril (8) Hypercholesterolemia: Code(s): E78.00 - Pure hypercholesterolemia, unspecified Category: Medical Plan: Avoid fried foods, chicken skin, eggs, butter margarine, pastries and meat. Be it pork or beef they have a lot of cholesterol LDL goal of less than 70 and triglyceride of less than 150 on Zetia and rosuvastatin. Plan History of Present Illness The patient is an 85-year-old female presenting with a long-standing history of multiple chronic conditions requiring continuous follow-up and management. These conditions include essential hypertension, hypercholesterolemia, generalized anxiety disorder, coronary artery disease, gastroesophageal reflux disease, ischemic cardiomyopathy with congestive heart failure, and atrial fibrillation. She last attended a follow-up appointment on November 22, 2024, and thus presents today for care continuation. The patient recently underwent left carpal tunnel release surgery on January 06, 2025, addressing symptomatic left carpal tunnel syndrome. Laboratory work on November 14, 2024, identified mild anemia and elevated BNP levels, with other parameters such as electrolytes, renal function, and liver function within normal limits. She routinely monitors her weight, noting a loss of around 2 pounds following diuretic use. Recent personal celebrations included attention to dietary sodium intake due to heart failure management. Discussion regarding vaccinations identified that her tetanus and shingles vaccinations are up to date, yet there is an outstanding need for a pneumonia vaccination. Health Maintenance - Pneumonia vaccination recommended - Tetanus vaccination was discussed and appears up-to-date - Shingles vaccination confirmed - Monitoring dietary intake, focusing on sodium reduction Social History - The patient monitors her weight twice weekly. - Special dietary precautions during family events to manage sodium intake due to heart condition. Review of Systems - Cardiovascular: Reports irregular heartbeat and is under continuous follow-up for cardiac conditions. Physical Exam Results - Labs: Mild anemia noted; elevated BNP level at 674; normal electrolytes, renal function, blood sugar, and iron; normal liver function. Plan Today's visit focused on the management of the patient's chronic conditions, including congestive heart failure and hypertension, emphasizing follow-up every three months and continuous monitoring of BNP levels. Her stable mild anemia will be monitored with routine blood work, integrated into her follow-up care. A dietary adjustment to reduce sodium intake was noted and applauded during her personal celebrations. Lastly, vaccinations remain crucial, with a highlighted need to update her pneumonia vaccination. Patient was informed and verbally consented to the use of an ambient scribe for clinic note documentation during this visit. Discussion Notes I discussed with the patient her ongoing management for a multitude of chronic conditions, stressing the importance of routine follow-ups every three months, considering her cardiac condition, and monitoring BNP levels closely. We re viewed laboratory findings, and the stabilization of her anemia was noted. Dietary concerns were addressed in light of her recent celebrations, emphasizing the reduction of sodium intake for optimal cardiac care. The need for pneumonia vaccination as part of her preventive care was discussed, noting that her tetanus and shingles vaccinations are current. No specific procedures or diagnostics were performed during the visit. Patient Instructions - Return for follow-up in three months for ongoing management of chronic conditions. - Monitor blood pressure and weight regularly at home. - Adhere to a low-sodium diet, especially during celebrations. - Schedule and receive a pneumonia vaccination. - Continue regular cardiovascular evaluations as per routine care. Orders: Orders Comprehensive Met. Panel Today I50.9 - Heart failure, unspecified Thyroid Stimulating Hormone Today I50.9 - Heart failure, unspecified Reticulocyte Count Today I50.9 - Heart failure, unspecified Complete Blood Count Auto Diff Today I50.9 - Heart failure, unspecified B Type Natriuretic Peptide Today I50.9 - Heart failure, unspecified Free T4 (Free Thyroxine) Today I50.9 - Heart failure, unspecified Lipid Panel Today E78.00 - Pure hypercholesterolemia, unspecified, I50.9 - Heart failure, unspecified Vitamin B12 and Folate Today I50.9 - Heart failure, unspecified Vitamin D 25-OH Total Today I50.9 - Heart failure, unspecified Ferritin Today I50.9 - Heart failure, unspecified IRON PROFILE Today I50.9 - Heart failure, unspecified UA CC w/rflx Micro + Cult Today I50.9 - Heart failure, unspecified, R30.0 - Dysuria Medications: New ondansetron 4 mg PO Q8H PRN 10 tabs 0RF nausea and vomiting I50.9 - Heart failure, unspecified furosemide 20 mg PO DAILY PRN 30 tabs 0RF shivering I50.9 - Heart failure, unspecified
== END 2025-03-04 15:02 | disposition home or self-care (01) ==
LOC: HO.HMCH 14:15
PROVIDERS: PCP Internal Medicine; Visit Provider Internal Medicine
DX: G56.02 Carpal tunnel syndrome, left upper limb (principal); I48.0 Paroxysmal atrial fibrillation; I50.9 Heart failure, unspecified; I25.10 Atherosclerotic heart disease of native coronary artery without angina pectoris; K21.9 Gastro-esophageal reflux disease without esophagitis; F41.1 Generalized anxiety disorder; I10 Essential (primary) hypertension; E78.00 Pure hypercholesterolemia, unspecified; Z23 Encounter for immunization

== ENCOUNTER → 2025-03-04 14:14 | Outpatient (BNVA) | payer MEDICARE, SELFPAY ==
[2022-05-04 12:53] VITALS: BP 108/62; BP 132/70; BMI 23.3
== END ==
PROVIDERS: PCP Internal Medicine; Visit Provider Internal Medicine
DX: Z23 Encounter for immunization (principal); G56.02 Carpal tunnel syndrome, left upper limb; I48.0 Paroxysmal atrial fibrillation; I25.10 Atherosclerotic heart disease of native coronary artery without angina pectoris; I11.0 Hypertensive heart disease with heart failure; I50.9 Heart failure, unspecified; K21.9 Gastro-esophageal reflux disease without esophagitis; F41.1 Generalized anxiety disorder; E78.00 Pure hypercholesterolemia, unspecified
CPT/HCPCS: 90471; 90714; 99212

== ENCOUNTER 2025-05-12 13:30 | Outpatient (REF) | payer MEDICARE, SELFPAY ==
[2022-05-04 12:53] VITALS: BP 108/62; BP 132/70; BMI 23.3
[2025-05-12 16:17] LABS: MANUAL DIFF FLAG NO
[2025-05-12 16:25] LABS: Hematocrit 34.8 % (37.0-47.0); Hemoglobin 11.5 g/dl (12.0-16.0); Imm Gran Abs Auto 0.04 X10*3/uL (0.00-0.03); Imm Gran Pct Auto 0.5 % (0.0-0.4); Lymphocytes Absolute Auto 0.9 X10*3/uL (1.2-4.9); Mean Corpuscular HGB Conc 33.0 g/dl (31.0-35.0); Mean Corpuscular Hemoglobin 28.8 pg (27.0-33.0); Mean Corpuscular Volume 87.2 fL (80.0-98.0); NRBC Abs Auto 0.000 X10*3/uL (0.0-0.012); NRBC Pct Auto 0.0 /100WBC (0.0-0.2); Platelet Count 327 X10*3/uL (160-400); Red Blood Count 3.99 X10*6/uL (4.20-5.50); White Blood Count 8.4 X10*3/uL (4.8-10.8)
[2025-05-12 16:32] LABS: Appearance Urine Clear; Glucose Urine UA Negative (Negative); PH 8.0 (5.0-9.0); Specific Gravity - Urine 1.010 (1.005-1.025); UMIC TRIGGER UACC YES
[2025-05-12 16:49] LABS: Alanine Aminotransferase 22 U/L (0-31); Albumin Level 4.4 g/dL (3.5-5.0); Alkaline Phosphatase 78 U/L (39-117); Anion Gap 12 (12-20); Aspartate Amino Transferase 34 U/L (5-31); Blood Urea Nitrogen 17 mg/dL (9-16); Calcium 9.5 mg/dL (8.4-10.2); Carbon Dioxide 26 mmol/L (22-29); Chloride 99 mmol/L (96-108); Estimated Glomerular Filt Rate > 60; Iron 47 mcg/dL (30-160); Percent Iron Saturation 13 % (15-50); Potassium 4.5 mmol/L (3.3-5.1); Sodium 132 mmol/L (135-145); Total Iron Binding Capacity 359 mcg/dL (228-428); Total Protein 6.5 g/dL (6.5-8.0); Unsaturated Iron Binding 312 ug/dL
[2025-05-12 16:51] LABS: B Type Natriuretic Peptide 670 pg/mL (<100)
[2025-05-12 16:54] LABS: Ferritin 40 ng/mL (10-250); Thyroid Stimulating Hormone 2.51 uIU/mL (0.32-4.0)
[2025-05-12 17:18] LABS: Folate 15.9 ng/mL (> or = 4.0); Vitamin B12 981 pg/mL (200-900)
== END 2025-05-12 13:31 | disposition home or self-care (01) ==
LOC: HO.HMGCLDS 13:30
PROVIDERS: PCP Internal Medicine; Visit Provider Internal Medicine
DX: I25.10 Atherosclerotic heart disease of native coronary artery without angina pectoris (principal); I11.0 Hypertensive heart disease with heart failure; I50.9 Heart failure, unspecified; I48.0 Paroxysmal atrial fibrillation; E78.00 Pure hypercholesterolemia, unspecified; K21.9 Gastro-esophageal reflux disease without esophagitis
CPT/HCPCS: 36415; 80053; 81001; 82607; 82728; 82746; 83540; 83880; 84443; 85025; 99212

== ENCOUNTER 2025-05-12 13:30 | Outpatient (AMB) | payer MEDICARE, SELFPAY ==
[2022-05-04 12:53] VITALS: BP 108/62; BP 132/70; BMI 23.3
--- NOTE | 2025-05-12 13:37 | MHC.PC.OV ---
Vital Signs 05/12/25 13:38 Height 5 ft 2 in Weight 121 lb 8 oz BMI 22.2 BP 156/82 H Blood Pressure Location Lt brachial Position Sitting Pulse 94 Pulse Source Pulse Oximeter Temp 97.3 F Temp Source Temporal Artery Scan Pulse Oximetry (%) 96 Oxygen Delivery Method Room Air Intake Visit Reasons: Shakey, sweats Accompanied by: Son Allergies atorvastatin (Lipitor) Allergy (Unknown, Verified 05/12/25 13:41) Unknown lovastatin Allergy (Unknown, Verified 05/12/25 13:41) Unknown pneumococcal vaccine Allergy (Unknown, Verified 05/12/25 13:41) Unknown pravastatin Allergy (Unknown, Verified 05/12/25 13:41) Unknown sertraline Adverse Reaction (Intermediate, Verified 05/12/25 13:41) sweaty Tobacco use date assessed: 05/12/25 Fall risk assessment: No Falls in past year Last assessed Fall Risk: 05/12/25 Dental Screening Dental Screen Date: 05/12/25 Did you have a dental visit in the last 12 months?: Yes Did you have a dental problem in the last 6 months where you did not have access to dental care?: No Was dental information given to patient?: Patient has dentist [facility] Medical History Bilateral hand numbness Breast cancer screening by mammogram Nonrheumatic mitral valve regurgitation PAF (paroxysmal atrial fibrillation) Ischemic cardiomyopathy Atherosclerotic cardiovascular disease Congestive heart failure Overweight (BMI 25.0-29.9) Thyroid nodule Hemorrhoids Diverticulosis Hypercholesterolemia Hypertension Surgical History History of cardiac catheterization (~10/18/21) History of colonoscopy History of cataract surgery History of surgery Family History Father Hypertension Stroke CVD (cardiovascular disease) Mother Hypertension Stroke Social History Household Members: Spouse Housing: House Alcohol intake: current Alcohol intake frequency: a few times a week Alcohol type: wine Patient Tobacco Use Status: Former Tobacco user Tobacco use type: Cigarette e-Cigarette/Vaping Use: Never Used Second Hand Smoke Exposure: Yes service: No Current occupational status: retired Current occupation: right hand dominant Cognitive needs: No Hearing needs: No Vision needs: Yes (Glasses) Questionnaire PHQ-9 Over the last 2 weeks, how often have you been bothered by any of the following problems? 1. Little interest or pleasure in doing things: not at all 2. Feeling down, depressed, or hopeless: several days 3. Trouble falling or staying asleep, or sleeping too much: not at all 4. Feeling tired or having little energy: more than half the days 5. Poor appetite or overeating: several days 6. Feeling bad about yourself - or that you are a failure or have let yourself or your family down: not at all 7. Trouble concentrating on things, such as reading the newspaper or watching television: not at all 8. Moving or speaking so slowly that other people could have noticed. Or the opposite - being so fidgety or restless that you have been moving around a lot more than usual: several days 9. Thoughts that you would be better off or of hurting yourself in some way: not at all Total score: 5 Source: Developed by Drs. Luis Ruiz, Jenny Trujillo, Santosh Meadows and colleagues, with an educational hiren from [employer]. Thrive Questionnaire Date Thrive assessed: 05/12/25 I am a: Parent/Caregiver What is your living situation today?: I have a steady place to live Within the past 12 months, did the food you bought not last and you didn't have the money to get more?: Never true Within the past 12 months, did you worry whether your food would run out before you got money to buy more?: Never true Do you have trouble paying for medicines?: I choose not to answer this question Do you have trouble getting transportation to medical appointments?: No Do you have trouble paying your heating and electricity bill?: No Do you have trouble taking care of your child, family member or friend?: I choose not to answer this question Do you have trouble with day-to-day activities such as bathing, preparing meals, shopping, managing finances, etc.?: No Are you currently unemployed and looking for a job?: No Are you interested in more education?: No Please select the resources that you would like help with: None Currently or been in a relationship where the following occur: No concerns reported THRIVE Score: 0 AUDIT C Alcohol Use Questionnaire (AUDIT-C) 1. How often do you have a drink containing alcohol?: 2-3 times a week 2. How many drinks containing alcohol do you have on a typical day when you are drinking?: 1 or 2 3. How often do you have six or more drinks on one occasion?: Never Total Score: 3 TIMMY-7 AMB Questionnaire TIMMY-7 Date TIMMY - 7 assessed: 11/22/24 Feeling nervous, anxious, or on edge: 1 = Several days Not being able to stop or control worryin = More than half the days Worrying too much about different things: 2 = More than half the days Trouble relaxin = Several days Being so restless that it is hard to sit still: 2 = More than half the days Becoming easily annoyed or irritable: 1 = Several days Feeling afraid as if something awful might happen: 1 = Several days Total TMIMY-7 score (0-4 normal; 5-9 mild; 10-14 moderate; 15-21 severe): 10 Source: Developed by Drs. Luis Ruiz, Jenny Trujillo, Santosh Meadows and colleagues, with an educational hiren from [employer]. Physical exam (Primary Care) Vital Signs: Last Vital Signs Temp 97.3 F 05/12/25 13:38 Pulse 94 05/12/25 13:38 BP 156/82 H 05/12/25 13:38 Pulse Ox 96 05/12/25 13:38 Oxygen Delivery Method Room Air 05/12/25 13:38 BMI result Body Mass Index 22.2 Tobacco/Smoking Status: Tobacco use Status Tobacco use date assessed 05/12/25 05/12/25 13:43 Patient Tobacco Use Status Former Tobacco user 05/12/25 13:43 Tobacco use type Cigarette 05/12/25 13:43 e-Cigarette/Vaping Use Never Used 05/12/25 13:43 PHQ-9: PHQ-9 Score PHQ-9: Total score 5 05/12/25 13:43 Thrive Assessment: Date of Thrive Assessment Date Thrive assessed 05/12/25 05/12/25 13:43 Currently or been in a relationship where the following occur: No concerns reported Const General: alert; No acute distress Eyes Conjunctivae: conjunctivae normal Resp Auscultation: clear to auscultation bilaterally Cardio Rate: regular rate Rhythm: regular rhythm GI Inspection: Yes normal to inspection Extrem General: Yes normal to inspection and No edema Coding Level of Care Code Est Pt Level 4 (07758) Complex EM visit Add On G2211 Diagnoses Coronary artery disease involving mcgrath coronary artery of mcgrath heart without angina pectoris I25.10 Associated angina: without angina Coronary Disease-Associated Artery/Lesion type: mcgrath artery [place] vs. transplanted heart: mcgrath heart Acute on chronic congestive heart failure, unspecified heart failure type I50.9 Heart failure chronicity: acute on chronic Heart failure type: unspecified PAF (paroxysmal atrial fibrillation) I48.0 Hypercholesterolemia E78.00 Essential hypertension I10 Hypertension type: essential hypertension Gastroesophageal reflux disease without esophagitis K21.9 Esophagitis presence: without esophagitis Assessment & Plan Assessment & Plan (1) Coronary artery disease: Code(s): I25.10 - Atherosclerotic heart disease of mcgrath coronary artery without angina pectoris Category: Medical Qualifiers: Associated angina: without angina Coronary Disease-Associated Artery/Lesion type: mcgrath artery [place] vs. transplanted heart: mcgrath heart Qualified Code(s): I25.10 - Atherosclerotic heart disease of mcgrath coronary artery without angina pectoris Plan: Control the cholesterol, weight, blood pressure, patient on anticoagulation with Eliquis (2) Congestive heart failure: Comment: Congestive heart failure with reduced ejection fraction Code(s): I50.9 - Heart failure, unspecified Category: Medical Qualifiers: Heart failure chronicity: acute on chronic Heart failure type: unspecified Qualified Code(s): I50.9 - Heart failure, unspecified Plan: Weigh daily on diuretics furosemide and Aldactone will need blood work (3) PAF (paroxysmal atrial fibrillation): Code(s): I48.0 - Paroxysmal atrial fibrillation Category: Medical Plan: Continue with anticoagulation and metoprolol (4) Hypercholesterolemia: Code(s): E78.00 - Pure hypercholesterolemia, unspecified Category: Medical Plan: Avoid fried foods, chicken skin, eggs, butter margarine, pastries and meat. Be it pork or beef they have a lot of cholesterol on Zetia and rosuvastatin October 2024 last blood work (5) Hypertension: Code(s): I10 - Essential (primary) hypertension Category: Medical Qualifiers: Hypertension type: essential hypertension Qualified Code(s): I10 - Essential (primary) hypertension Plan: Continue with blood pressure medication. Decrease salt intake and exercise takes Aldactone metoprolol 50 mg once a day lisinopril 2.5 mg once a day (6) GERD (gastroesophageal reflux disease): Code(s): K21.9 - Gastro-esophageal reflux disease without esophagitis Category: Medical Qualifiers: Esophagitis presence: without esophagitis Qualified Code(s): K21.9 - Gastro-esophageal reflux disease without esophagitis Plan: Avoid the foods that causes that usually spicy foods, tomato products, juices, coffee, soda and foods that your sensitive to. After eating do not lie down, allow 3-4 hours before in lie down. And keep the head of bed above 30 degrees to avoid the acid from going up. Plan History of Present Illness The patient is an 85-year-old female presenting with weakness and feeling hot. She has a history of coronary artery disease, hypertension, hypercholesterolemia, generalized anxiety disorder, congestive heart failure, atrial fibrillation, and anemia. The patient reports feeling hot and weak, with episodes of chills and a sensation of being wet without actual perspiration. She denies fever, urinary symptoms, cough, or shortness of breath, although she occasionally feels congested. The patient experiences abdominal pain and gas, with bowel movements starting hard and becoming loose, but not watery. She avoids foods known to cause gas and does not consume carbonated beverages. She is on anticoagulation therapy with Eliquis and takes diuretics including furosemide and spironolactone. She also takes metoprolol and lisinopril for blood pressure management. The patient has been advised to monitor her weight daily to manage fluid balance and prevent dehydration or fluid overload. Health Maintenance - Advised daily weight monitoring to manage fluid balance Social History - Diet: Avoids foods causing gas, does not consume carbonated beverages Review of Systems - General: Reports feeling hot and weak, denies fever - Respiratory: Denies cough, reports occasional congestion, denies shortness of breath - Gastrointestinal: Reports abdominal pain, gas, bowel movements starting hard and becoming loose, denies diarrhea - Genitourinary: Denies urinary symptoms Physical Exam - Cardiovascular: Heart regular, no murmurs noted - Respiratory: Lungs clear to auscultation bilaterally - ENT: No sore throat, no ear pain, eardrums visible with wax Results - Labs: Blood work and urine test planned to assess electrolyte balance and anemia Plan The patient will continue anticoagulation therapy with Eliquis and diuretics including furosemide and spironolactone to manage fluid balance and prevent heart failure exacerbation. Blood pressure management will be maintained with metoprolol and lisinopril. The patient is advised to monitor her weight daily to detect any fluid retention or dehydration, which could indicate a need for adjustment in diuretic therapy. Blood work and urine tests are planned to evaluate electrolyte levels and anemia, with results to guide further management. Patient was informed and verbally consented to the use of an ambient scribe for clinic note documentation during this visit. Discussion Notes I discussed with the patient the importance of continuing her current medication regimen, including anticoagulation and diuretics, to manage her heart conditions and prevent complications. We talked about the need for daily weight monitoring to help detect fluid imbalances early. I explained the upcoming blood work and urine tests to assess her electrolyte levels and anemia, emphasizing that these results will guide any necessary adjustments in her treatment plan. Patient Instructions - Continue taking your medications as prescribed, including Eliquis, furosemide, spironolactone, metoprolol, and lisinopril. - Weigh yourself daily and record your weight to monitor for any changes. - Follow up with blood work and urine tests as scheduled to check your electrolyte levels and anemia. Orders: Orders Ferritin Today I50.9 - Heart failure, unspecified IRON PROFILE Today I50.9 - Heart failure, unspecified Vitamin B12 and Folate Today I50.9 - Heart failure, unspecified Thyroid Stimulating Hormone Today I50.9 - Heart failure, unspecified B Type Natriuretic Peptide Today I50.9 - Heart failure, unspecified Complete Blood Count Auto Diff Today I50.9 - Heart failure, unspecified Comprehensive Met. Panel Today I50.9 - Heart failure, unspecified UA CC w/rflx Micro + Cult Today I50.9 - Heart failure, unspecified, R30.0 - Dysuria Medications: New torsemide 20 mg PO DAILY PRN 30 tabs 0RF sob Discontinued furosemide Discontinued Reason: Doctor's Order 20 mg PO DAILY PRN 30 tabs 0RF shivering I50.9 - Heart failure, unspecified
[2025-05-12 13:38] VITALS: BP 156/82; PULSE 94; TEMP 36.3; O2SAT 96; BMI 22.2
--- OUTSIDE RECORDS SUMMARY | 2025-05-12 14:15 | XMS_ITS | Patient Health Record ---
Author Organization [facility] Address [address] [place] [address] Care Team Providers Care Knockdown Man Name Role Phone Liborio Cast MD Primary Care Provider Luis Hernandez [phone] Reason For Referral No Information Medications Medication SIG (Take, Route, Frequency, Duration) Notes Start Date End Date Status hydroCHLOROthiazide 12.5mg 1 tablet Once a day Active Multi Vitamin/Minerals 1 1 Orally QD Active Calcium + D 500-1000-40 MG-UNT-MCG 1 tablet with meals Orally QD Active Aspir-81 81 MG 1 tablet Orally Once a day Active Flaxseed Oil 1000 MG 1 Orally QD Active Vitamin D 400 UNIT/ML 1 tablet Orally On ce a day Active Immunizations Vaccine Route Administration Date Status Comme nts Flu vaccine no Preserv 3 and > Unknown 08/03/2016 Admin istered Problems Problem Type SNOMED Code ICD Code Onset Dates Problem Status W/U Status Risk Notes Problem 107996177 Encounter for screening for malignant neoplasm of colon (Z12.11) Active confirmed Problem 701480361 History of adenomatous polyp of colon (Z86.010) Active confirmed Problem 04549201 Hypertension (I10) Active confirmed Problem Encounter for screening for malignant neoplasm of rectum (Z12.12) Active confirmed Problem 88263174 Preprocedural examination (Z01.818) Active confirmed Problem 352253186 Family history o f colon cancer (Z80.0) Active confirmed Problem 086624010 Long-term use of aspirin therapy (Z79.82) Active confirmed Problem 706284306 Irregular bowel habits (R19.8) Active confirmed Plan Of Treatment Pending Test Test Name Order Date GI BIOPSY 01/09/2017 Future Test Test Name Order Date COLONOSCOPY 11/02/2016 Insurance Providers Payer Name Payer Address Payer Phone Subscriber Number Group Number Insured Name Patient Relationship to Insured Coverage Start Date Coverage End Date [employer] OF [place] [address] [place] [id number] AANHI JANSEN Self - patient is the insured [employer] [address] [place] [address] [id number] ANAHI JANSEN Self - patient is the insured Medical (General) History Medical History History ICD Code EGD 07-15-2011--WNL except mi chris HH--bx neg for Chandler's and negative for eosinophilic esophagitis Tubular adenoma removed in --negative colonoscopy in 06/2011 exept for diverticulosis and internal hemorrhoids---negative colonoscopies prior to [address] Bernabe Denies SD,DM,CVA,Lung disease,renal dise ase Hypertension Hyperlipidemia Receives Botox injections in her neck fo r muscle spasms--Dr. Smith
== END 2025-05-12 14:50 | disposition home or self-care (01) ==
LOC: HO.HMCH 13:31
PROVIDERS: PCP Internal Medicine; Visit Provider Internal Medicine
DX: I25.10 Atherosclerotic heart disease of native coronary artery without angina pectoris (principal); I50.9 Heart failure, unspecified; I48.0 Paroxysmal atrial fibrillation; E78.00 Pure hypercholesterolemia, unspecified; I10 Essential (primary) hypertension; K21.9 Gastro-esophageal reflux disease without esophagitis

== ENCOUNTER 2025-06-24 14:49 | Outpatient (AMB) | payer MEDICARE, SELFPAY ==
[2022-05-04 12:53] VITALS: BP 108/62; BP 132/70; BMI 23.3
[2025-06-24 14:57] VITALS: BP 148/78; PULSE 82; O2SAT 97; BMI 22.5
--- NOTE | 2025-06-24 14:57 | MHC.PC.OV ---
Vital Signs 06/24/25 14:57 Height 5 ft 2 in Weight 123 lb BMI 22.5 BP 148/78 H Blood Pressure Location Lt brachial Position Sitting Pulse 82 Pulse Source Pulse Oximeter Pulse Oximetry (%) 97 Oxygen Delivery Method Room Air Intake Visit Reasons: 3 month Allergies atorvastatin (Lipitor) Allergy (Unknown, Verified 06/24/25 14:58) Unknown lovastatin Allergy (Unknown, Verified 06/24/25 14:58) Unknown pneumococcal vaccine Allergy (Unknown, Verified 06/24/25 14:58) Unknown pravastatin Allergy (Unknown, Verified 06/24/25 14:58) Unknown sertraline Adverse Reaction (Intermediate, Verified 06/24/25 14:58) sweaty Medication List - Last Reconciled 06/24/25 by Liborio Cast MD apixaban (Eliquis) 5 mg PO BID calcium carbonate (Calcium 500) 500 mg PO DAILY@1200 cholecalciferol (vitamin D3) 10 mcg PO DAILY@1200 ezetimibe 10 mg PO DAILY famotidine 20 mg PO BEDTIME ipratropium bromide 2 sprays intranasal QID lisinopril 2.5 mg PO DAILY metoprolol succinate ER 50 mg PO DAILY multivitamin 1 tab PO DAILY@1200 ondansetron 4 mg PO Q8H PRN rosuvastatin 20 mg PO BEDTIME spironolactone 12.5 mg (1/2 x 25 mg) PO DAILY torsemide 20 mg PO DAILY PRN Tobacco use date assessed: 05/12/25 Fall risk assessment: No Falls in past year Last assessed Fall Risk: 06/24/25 Dental Screening Dental Screen Date: 05/12/25 HPI 3 month HPI Details BP at home 114/52, 126/48, 122/43 , 123/58, 120/45, 129/45, 111/47, 123/49. feels dizzy on torsemide PFSH Medical History Bilateral hand numbness Breast cancer screening by mammogram Nonrheumatic mitral valve regurgitation PAF (paroxysmal atrial fibrillation) Ischemic cardiomyopathy Atherosclerotic cardiovascular disease Congestive heart failure Overweight (BMI 25.0-29.9) Thyroid nodule Hemorrhoids Diverticulosis Hypercholesterolemia Hypertension Surgical History History of cardiac catheterization (~10/18/21) History of colonoscopy History of cataract surgery History of surgery Family History Father Hypertension Stroke CVD (cardiovascular disease) Mother Hypertension Stroke Social History (Reviewed 05/12/25 @ 13:42 by Claudia Fontanez [facility]) Household Members: Spouse Housing: House Alcohol intake: current Alcohol intake frequency: a few times a week Alcohol type: wine Patient Tobacco Use Status: Former Tobacco user Tobacco use type: Cigarette e-Cigarette/Vaping Use: Never Used Second Hand Smoke Exposure: Yes service: No Current occupational status: retired Current occupation: right hand dominant Cognitive needs: No Hearing needs: No Vision needs: Yes (Glasses) Questionnaire PHQ-9 Over the last 2 weeks, how often have you been bothered by any of the following problems? 1. Little interest or pleasure in doing things: not at all 2. Feeling down, depressed, or hopeless: several days 3. Trouble falling or staying asleep, or sleeping too much: not at all 4. Feeling tired or having little energy: more than half the days 5. Poor appetite or overeating: several days 6. Feeling bad about yourself - or that you are a failure or have let yourself or your family down: not at all 7. Trouble concentrating on things, such as reading the newspaper or watching television: not at all 8. Moving or speaking so slowly that other people could have noticed. Or the opposite - being so fidgety or restless that you have been moving around a lot more than usual: several days 9. Thoughts that you would be better off or of hurting yourself in some way: not at all Total score: 5 Depression Screening Interpretation: Positive Depression Screening Done: Yes Source: Developed by Drs. Luis Ruiz, Jenny Trujillo, Santosh Meadows and colleagues, with an educational hiren from [employer]. Thrive Questionnaire Date Thrive assessed: 05/12/25 I am a: Parent/Caregiver What is your living situation today?: I have a steady place to live Within the past 12 months, did the food you bought not last and you didn't have the money to get more?: Never true Within the past 12 months, did you worry whether your food would run out before you got money to buy more?: Never true Do you have trouble paying for medicines?: I choose not to answer this question Do you have trouble getting transportation to medical appointments?: No Do you have trouble paying your heating and electricity bill?: No Do you have trouble taking care of your child, family member or friend?: I choose not to answer this question Do you have trouble with day-to-day activities such as bathing, preparing meals, shopping, managing finances, etc.?: No Are you currently unemployed and looking for a job?: No Are you interested in more education?: No Please select the resources that you would like help with: None Currently or been in a relationship where the following occur: No concerns reported THRIVE Score: 0 AUDIT C Alcohol Use Questionnaire (AUDIT-C) 1. How often do you have a drink containing alcohol?: 2-3 times a week 2. How many drinks containing alcohol do you have on a typical day when you are drinking?: 1 or 2 3. How often do you have six or more drinks on one occasion?: Never Total Score: 3 TIMMY-7 AMB Questionnaire TIMMY-7 Date TIMMY - 7 assessed: 11/22/24 Source: Developed by Drs. Luis Ruiz, Jenny Trujillo, Santosh Meadows and colleagues, with an educational hiren from [employer]. Physical exam (Primary Care) Vital Signs: Last Vital Signs Pulse 82 06/24/25 14:57 BP 148/78 H 06/24/25 14:57 Pulse Ox 97 06/24/25 14:57 Oxygen Delivery Method Room Air 06/24/25 14:57 BMI result Body Mass Index 22.5 Tobacco/Smoking Status: Tobacco use Status Tobacco use date assessed 05/12/25 06/24/25 15:02 Patient Tobacco Use Status Former Tobacco user 06/24/25 15:02 Tobacco use type Cigarette 06/24/25 15:02 e-Cigarette/Vaping Use Never Used 06/24/25 15:02 PHQ-9: PHQ-9 Score PHQ-9: Total score 5 06/24/25 15:02 Depression Screening Interpretation: Positive Thrive Assessment: Date of Thrive Assessment Date Thrive assessed 05/12/25 06/24/25 15:02 Currently or been in a relationship where the following occur: No concerns reported Const General: alert; No acute distress Eyes Conjunctivae: conjunctivae normal Resp Auscultation: clear to auscultation bilaterally Cardio Rate: regular rate Rhythm: regular rhythm GI Inspection: Yes normal to inspection Extrem General: Yes normal to inspection and No edema Coding Level of Care Code Est Pt Level 4 (98931) Complex EM visit Add On G2211 Diagnoses Essential hypertension I10 Hypertension type: essential hypertension Coronary artery disease involving [place] coronary artery of [place] heart without angina pectoris I25.10 Coronary Disease-Associated Artery/Lesion type: [place] artery [place] vs. transplanted heart: [place] heart Associated angina: without angina PAF (paroxysmal atrial fibrillation) I48.0 Hypercholesterolemia E78.00 Gastroesophageal reflux disease without esophagitis K21.9 Esophagitis presence: without esophagitis Cough R05.9 Assessment & Plan Assessment & Plan (1) Hypertension: Code(s): I10 - Essential (primary) hypertension Category: Medical Qualifiers: Hypertension type: essential hypertension Qualified Code(s): I10 - Essential (primary) hypertension Plan: Continue with blood pressure medication. Decrease salt intake and exercise patient is on lisinopril 2.5 mg once a day metoprolol 50 mg once a day spironolactone 12.5 mg once a day (2) Coronary artery disease: Code(s): I25.10 - Atherosclerotic heart disease of [place] coronary artery without angina pectoris Category: Medical Qualifiers: Coronary Disease-Associated Artery/Lesion type: [place] artery [place] vs. transplanted heart: [place] heart Associated angina: without angina Qualified Code(s): I25.10 - Atherosclerotic heart disease of [place] coronary artery without angina pectoris Plan: Control the cholesterol, weight, blood pressure, diabetes on anticoagulation with Eliquis (3) PAF (paroxysmal atrial fibrillation): Code(s): I48.0 - Paroxysmal atrial fibrillation Category: Medical Plan: Continue with anticoagulation and metoprolol 50 mg once a day (4) Hypercholesterolemia: Code(s): E78.00 - Pure hypercholesterolemia, unspecified Category: Medical Plan: Avoid fried foods, chicken skin, eggs, butter margarine, pastries and meat. Be it pork or beef they have a lot of cholesterol patient is taking rosuvastatin 20 mg at bedtime LDL goal of less than 70 and triglyceride of less than 150 (5) GERD (gastroesophageal reflux disease): Code(s): K21.9 - Gastro-esophageal reflux disease without esophagitis Category: Medical Qualifiers: Esophagitis presence: without esophagitis Qualified Code(s): K21.9 - Gastro-esophageal reflux disease without esophagitis Plan: Avoid the foods that causes that usually spicy foods, tomato products, juices, coffee, soda and foods that your sensitive to. After eating do not lie down, allow 3-4 hours before in lie down. And keep the head of bed above 30 degrees to avoid the acid from going up. (6) Cough: Code(s): R05.9 - Cough, unspecified Category: Medical Plan History of Present Illness The patient is an 85-year-old female presenting for a follow-up visit. She has a history of hypertension, managed with lisinopril and metoprolol, with home blood pressure readings indicating good control. Her hypercholesterolemia is managed with rosuvastatin, achieving LDL goals. The patient has coronary artery disease with ischemic cardiomyopathy and congestive heart failure, managed with anticoagulation and metoprolol. She has atrial fibrillation, managed with anticoagulation therapy. Osteopenia is noted, with a bone density screening due. The patient reports a persistent cough, possibly related to lisinopril, with no shortness of breath or fever. A chest x-ray has been ordered to investigate further. [facility] Maintenance - Bone density screening due, last conducted in March 2021 - Flu shot recommended for July Social History Review of Systems - Respiratory: Reports cough, denies dyspnea or fever Physical Exam - Throat: No abnormalities observed - Lungs: Clear to auscultation bilaterally Results - Labs: Mild anemia with hemoglobin 11.1 g/dL and hematocrit 34.8% - Labs: Mildly low sodium - Labs: Elevated blood sugar at 102 mg/dL - Labs: BMP elevated at 670 - Labs: LDL cholesterol at 47 mg/dL Plan Patient was informed and verbally consented to the use of an ambient scribe for clinic note documentation during this visit. 1. Hypertension The patient's hypertension is managed with lisinopril 2.5 mg once daily and metoprolol 50 mg once daily. Blood pressure readings at home are well-controlled, with values around 126/122 mmHg. 2. Hypercholesterolemia The patient is on rosuvastatin 20 mg at bedtime, with LDL cholesterol levels well within the target range. 3. Coronary Artery Disease With Ischemic Cardiomyopathy The patient is on anticoagulation therapy with Eliquis and metoprolol 50 mg once daily for coronary artery disease with ischemic cardiomyopathy. 4. Congestive Heart Failure Management includes anticoagulation therapy and metoprolol 50 mg once daily. 5. Atrial Fibrillation The patient is managed with anticoagulation therapy to prevent thromboembolic events. 6. Osteopenia The patient is due for a bone density screening, with the last test conducted in March 2021. 7. Cough The patient reports a persistent cough, potentially related to lisinopril use. A chest x-ray has been ordered to rule out other causes. Discussion Notes During the visit, I discussed with the patient the management of her hypertension, hypercholesterolemia, and coronary artery disease. We reviewed her current medications, including lisinopril, metoprolol, and rosuvastatin, and confirmed that her blood pressure and cholesterol levels are well-controlled. I explained the potential side effect of lisinopril causing a cough and recommended a chest x-ray to rule out other causes. We also discussed the importance of a bone density screening and the timing for her next flu shot. Patient Instructions - Continue taking lisinopril, metoprolol, and rosuvastatin as prescribed. - Monitor blood pressure regularly at home. - Schedule a bone density screening. - Get a flu shot in July. - Follow up if the cough persists or worsens. Orders: Orders XR chest 2V Today R05.9 - Cough, unspecified XR chest 2V Today R05.9 - Cough, unspecified
== END 2025-06-24 15:46 | disposition home or self-care (01) ==
LOC: HO.HMCH 14:50
PROVIDERS: PCP Internal Medicine; Visit Provider Internal Medicine
DX: I10 Essential (primary) hypertension (principal); I25.10 Atherosclerotic heart disease of native coronary artery without angina pectoris; I48.0 Paroxysmal atrial fibrillation; E78.00 Pure hypercholesterolemia, unspecified; K21.9 Gastro-esophageal reflux disease without esophagitis; R05.9 Cough, unspecified

== ENCOUNTER → 2025-06-24 14:49 | Outpatient (BNVA) | payer MEDICARE, SELFPAY ==
[2022-05-04 12:53] VITALS: BP 108/62; BP 132/70; BMI 23.3
== END ==
PROVIDERS: PCP Internal Medicine; Visit Provider Internal Medicine
DX: I11.0 Hypertensive heart disease with heart failure (principal); I50.9 Heart failure, unspecified; I25.10 Atherosclerotic heart disease of native coronary artery without angina pectoris; I48.0 Paroxysmal atrial fibrillation; E78.00 Pure hypercholesterolemia, unspecified; K21.9 Gastro-esophageal reflux disease without esophagitis; R05.9 Cough, unspecified; M85.80 Other specified disorders of bone density and structure, unspecified site; Z79.01 Long term (current) use of anticoagulants
CPT/HCPCS: 96127; 99212

== ENCOUNTER 2025-06-26 14:31 | Outpatient (REF) | payer MEDICARE, SELFPAY ==
[2022-05-04 12:53] VITALS: BP 108/62; BP 132/70; BMI 23.3
--- NOTE | ~2025-06-26 | XR_ITS ---
EXAMINATION: XR CHEST CLINICAL INFORMATION: R05.9 - Cough, unspecified COMPARISON: May 27, 2024. TECHNIQUE: 2 views of the chest were obtained. FINDINGS: Hyperinflated lungs. Pulmonary reticular pattern, pronounced in the right middle lung lobe/right lower lung lobe. No gross consolidation pleural effusion or pneumothorax. Cardiomediastinal silhouette size is normal. Calcified plaque thoracic aorta. Multilevel thoracic spondylosis, mild to moderate. Osteopenia versus osteoporosis. Degenerative changes in the acromioclavicular joints.. XR/XR chest 2V IMPRESSION: COPD emphysematous type changes without gross acute airspace disease. Stable chest. Electronically signed by: Khanh Ross MD 06/26/2025 03:16 PM EDT
--- OUTSIDE RECORDS SUMMARY | 2025-06-26 15:48 | XMS_ITS | Patient Health Record ---
Author Organization [facility] Address [address] [place] [address] Care Team Providers Care Director Hair Name Role Phone Liborio Cast MD Primary Care Provider Luis Hernandez [phone] Reason For Referral No Information Medications Medication [...] Problem Status W/U Status Risk Notes Problem 138716990 Encounter for screening for malignant neoplasm of colon (Z12.11) Active confirmed Problem 257445071 History of adenomatous polyp of colon (Z86.010) Active confirmed Problem 22218447 Hypertension (I10) Active confirmed Problem Screening for malignant neoplasm of rectum (890863201) Encounter for screening for malignant neoplasm of rectum (Z12.12) Active confirmed Problem 67421524 Preprocedural examination (Z01.818) Active confirmed Problem 785482622 Family history o f colon cancer (Z80.0) Active confirmed Problem 525796125 Long-term use of aspirin therapy (Z79.82) Active confirmed Problem 394257259 Irregular bowel habits (R19.8) Active confirmed Plan Of Treatment Pending Test Test Name Order Date GI BIOPSY 01/09/2017 Future Test Test Name Order Date COLONOSCOPY 11/02/2016 Insurance Providers Payer Name Payer Address Payer Phone Subscriber Number Group Number Insured Name Patient Relationship to Insured Coverage Start Date Coverage End Date [employer] [place] [address] [place] [id number] MIKI IqbalANAHI Self - patient is the insured [facility] [employer] [address] [place], [place] [address] [phone] [id number] MIKI ANAHI Iqbal Self - patient is the insured Medical (General) History Medical History History ICD Code EGD 07-15-2011--WNL except mi preetal HH--bx neg for Chandler's and negative for eosinophilic esophagitis Tubular adenoma removed in --negative colonoscopy in 06/2011 exept for diverticulosis and internal hemorrhoids---negative colonoscopies prior to [address] Srinivasa Bailey ND,DM,CVA,Lung disease,renal dise ase Hypertension Hyperlipidemia Receives Botox injections in her neck fo r muscle spasms--Dr. Smith
== END 2025-06-26 14:32 | disposition home or self-care (01) ==
LOC: HO.XRAY 14:31
PROVIDERS: PCP Internal Medicine; Visit Provider Internal Medicine
DX: R05.9 Cough, unspecified (principal)
CPT/HCPCS: 71046

== ENCOUNTER → 2025-06-26 14:37 | Outpatient (BNV) | payer MEDICARE, SELFPAY ==
[2022-05-04 12:53] VITALS: BP 108/62; BP 132/70; BMI 23.3
== END ==
PROVIDERS: PCP Internal Medicine; Visit Provider Radiology Diagnostic Radiology
DX: J43.9 Emphysema, unspecified (principal)
CPT/HCPCS: 71046

== ENCOUNTER 2025-09-16 12:31 | Outpatient (AMB) | payer MEDICARE, SELFPAY ==
[2022-05-04 12:53] VITALS: BP 108/62; BP 132/70; BMI 23.3
--- NOTE | 2025-09-16 12:42 | MHC.OFFVIS ---
Vital Signs 09/16/25 12:44 Height 5 ft 2 in Weight 121 lb 4.068 oz BMI 22.2 BP 120/72 Blood Pressure Location Lt brachial Position Sitting Pulse 77 Pulse Source Monitor Intake Visit Reasons: Atherosclerotic cardiovascular disease Quality Control Assessor Required: No Accompanied by: Daughter Allergies atorvastatin (Lipitor) Allergy (Unknown, Verified 06/24/25 14:58) Unknown lovastatin Allergy (Unknown, Verified 06/24/25 14:58) Unknown pneumococcal vaccine Allergy (Unknown, Verified 06/24/25 14:58) Unknown pravastatin Allergy (Unknown, Verified 06/24/25 14:58) Unknown sertraline Adverse Reaction (Intermediate, Verified 06/24/25 14:58) sweaty Medication List - Last Reconciled 09/16/25 by Davi Grande MD albuterol sulfate 90 mcg/actuation (Ventolin HFA) 2 puffs inhalation Q6H PRN apixaban (Eliquis) 5 mg PO BID calcium carbonate (Calcium 500) 500 mg PO DAILY@1200 cholecalciferol (vitamin D3) 10 mcg PO DAILY@1200 ezetimibe 10 mg PO DAILY 90 days famotidine 20 mg PO BEDTIME ipratropium bromide 2 sprays intranasal QID lisinopril 2.5 mg PO DAILY Held on 07/10/25. Instructions: Doctor's Order metoprolol succinate ER 50 mg PO DAILY multivitamin 1 tab PO DAILY@1200 ondansetron 4 mg PO Q8H PRN rosuvastatin 20 mg PO BEDTIME spironolactone 12.5 mg (1/2 x 25 mg) PO DAILY torsemide 20 mg PO DAILY PRN HPI Comments Details: Jocelynn returns for follow up regarding coronary disease and cardiomyopathy. To recall, in September 2021, she had inferior STEMI and transferred to [facility]. She underwent cardiac catheterization that showed an occluded RCA but as the region was infarcted as well as because of late presentation and without any clear chest pain, she did not getting any interventions. Subsequently, she underwent detailed workup including echocardiogram, cardiac MRI among others and recommended medical therapy only. Cardiac surgery thought that she was high cardiac risk. Overall, she states she is feeling good. No new cardiac concerns. No anginal-type symptoms and breathing is at baseline. No significant leg swelling. [facility] Medical History Bilateral hand numbness Breast cancer screening by mammogram Nonrheumatic mitral valve regurgitation PAF (paroxysmal atrial fibrillation) Ischemic cardiomyopathy Atherosclerotic cardiovascular disease Congestive heart failure Overweight (BMI 25.0-29.9) Thyroid nodule Hemorrhoids Diverticulosis Hypercholesterolemia Hypertension Surgical History History of cardiac catheterization (~10/18/21) History of colonoscopy History of cataract surgery History of surgery Family History Father Hypertension Stroke CVD (cardiovascular disease) Mother Hypertension Stroke Social History Household Members: Spouse Housing: House Alcohol intake: current Alcohol intake frequency: a few times a week Alcohol type: wine Patient Tobacco Use Status: Former Tobacco user Tobacco use type: Cigarette e-Cigarette/Vaping Use: Never Used Second Hand Smoke Exposure: Yes service: No Current occupational status: retired Current occupation: right hand dominant Cognitive needs: No Hearing needs: No Vision needs: Yes (Glasses) Review of Systems Const Denies chills, Denies fatigue, Denies fever(s), Denies frequent falls, Denies weakness, Denies weight gain and Denies weight loss ENT Denies dizziness Card Denies chest pain, Denies leg edema, Denies lightheadedness, Reports palpitations, Reports dyspnea and Reports dyspnea on exertion Resp Denies cough, Reports dyspnea and Reports dyspnea on exertion GI Denies hematochezia Musc Denies abnormal gait, Denies muscle weakness, Denies numbness, Denies radiating pain into limb and Denies tingling Neuro Denies abnormal gait, Denies dizziness, Denies frequent falls, Denies numbness, Denies tingling and Denies weakness Endo Denies fatigue and Reports palpitations Physical Exam Vital Signs: Last Vital Signs Pulse 77 09/16/25 12:44 BP 120/72 09/16/25 12:44 BMI result Body Mass Index 22.2 Const General: comfortable and no acute distress Orientation/consciousness: patient oriented x3 HEENT Other: Unremarkable Head: Yes normal to inspection Neck Neck: Yes normal visual inspection Chest Chest palpation & inspection: normal inspection of the chest Resp Auscultation: clear to auscultation bilaterally Cardio Palpation: normal PMI Heart sounds: S1 normal heart sound present, S2 normal heart sound present, no gallops, no murmurs and no rubs GI Palpation (GI): Soft to palpation Back/Spine/Pelvis Other: unremarkable Skin General skin exam: no rashes or lesions noted Neuro General: patient oriented x3 Extrem General: Yes normal to inspection Psych Mental Status: mental status grossly normal Office Procedures EKG Details: EKG with underlying sinus rhythm at 77/Min; left ventricular hypertrophy with repolarization changes; cannot exclude old septal infarct; [place] [id number], Complete Assessment & Plan Assessment & Plan (1) Ischemic cardiomyopathy: Code(s): I25.5 - Ischemic cardiomyopathy Category: Medical Plan: In the most recent echocardiogram, LVEF 40-45%. Wall motion abnormalities from underlying coronary disease. Previously, LVEF was 30-35%. Clinically, no congestive heart failure symptoms or signs. Diuretics listed as intermittent. Otherwise, on metoprolol/lisinopril/spironolactone. Entresto was too expensive. Farxiga was also expensive. With regard to diuretics, it seems she is on Torsemide listed as prn and she possibly takes it twice a week. On those specific days, she does not want to take Spironolactone as apparently she gets very tired. (2) PAF (paroxysmal atrial fibrillation): Code(s): I48.0 - Paroxysmal atrial fibrillation Category: Medical Plan: Detected during [facility] hospitalization. Continue Eliquis. Plan Discussion Notes I addressed the patient's questions regarding the diuretic regimen, explaining that the daily pill, presumed to be spironolactone, is primarily for heart support, while the twice-weekly pill, presumed to be torsemide, is a diuretic for fluid management. Given the patient's report of feeling drained when taking both medications concurrently, I advised that it is acceptable to skip the daily pill on the days the stronger, twice-weekly diuretic is taken. I instructed the patient on monitoring for signs of fluid retention, such as leg swelling or worsening breathing, as an alternative to daily weighing. We discussed the use of a no-sodium electrolyte drink, and I recommended against making it a habit, though occasional use is permissible. I confirmed that the patient's condition is stable and recommended continuing with follow-up on an annual basis. Patient was informed and verbally consented to the use of an ambient scribe for clinic note documentation during this visit. Patient Instructions: - On the two days a week that you take your PRN water pill (torsemide), you may skip your daily half-pill (spironolactone) to help reduce feelings of fatigue. - Monitor yourself for signs of fluid buildup, such as swelling in your legs, increased shortness of breath, or a full feeling in your belly. - You may have an electrolyte drink occasionally, but do not make it a regular habit. - Your condition is stable. Please schedule a follow-up appointment in one year. Coding Level of Care Code Est Pt Level 4 (88504) Complex visit Add On G2211 Diagnoses Ischemic cardiomyopathy I25.5 PAF (paroxysmal atrial fibrillation) I48.0 CPT Codes EKG - CPT: 33995-[id number], Complete ([id number])
[2025-09-16 12:44] VITALS: BP 120/72; PULSE 77; BMI 22.2
--- OUTSIDE RECORDS SUMMARY | 2025-09-16 16:04 | XMS_ITS | Patient Health Record ---
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 Name Role Phone Liborio Cast MD Primary Care Provider Luis Hernandez [phone] Reason For Referral No Information Medications Medication SIG (Take, Route, Frequency, Duration) Notes Start Date End Date Status hydroCHLOROthiazide 12.5mg Tablet 1 tablet Once a day Active Multi Vitamin/Minerals 1 Tablet 1 Orally QD Active Calcium + D 500-1000-40 MG-UNT-MCG Tablet Chewable 1 tablet with meals Orally QD Active Aspir-81 81 MG Tablet Delaye d Release 1 tablet Orally Once a day Active Flaxseed Oil 1000 MG Capsule 1 Orally QD Active Vitamin D 400 UNIT/ML Tablet 1 tablet Or ally Once a day Active Immunizations Vaccine Route Administration Date Status Comme nts Flu vaccine no Preserv 3 and > Unknown 08/03/2016 Admin istered Social History Social History Additional Details Category Social Info Options Details Miscellaneous: Marital status: Section Notes: She does not smoke or use an y significant amounts of alcohol She does not smoke or use an y significant amounts of alcohol- 1 glass a wine daily Problems Problem Type SNOMED Code ICD Code Onset Dates Problem Status W/U Status Risk Notes Problem Screening for malignant neoplasm of colon (745105878) Encounter for screening for malignant neoplasm of colon (Z12.11) Active confirmed Problem History of adenomatous polyp of colon (838049427) History of adenomatous polyp of colon (Z86.010) Active confirmed Problem Hypertension (19655744) Hypertension (I10) Active confirmed Problem Screening for malignant neoplasm of rectum (631864109) Encounter for screening for malignant neoplasm of rectum (Z12.12) Active confirmed Problem Preprocedural examination (905079714646028) Preprocedural examination (Z01.818) Active confirmed Problem Family History of Cancer of Colon (Situation) (553018363) Family history of colon cancer (Z80.0) Active confirmed Problem Long-term current use of antiplatelet drug (776336909945197) Long-term use of aspirin therapy (Z79.82) Active confirmed Problem Irregular bowel habits (533433077) Irregular bowel habits (R19.8) Active confirmed Plan Of Treatment Pending Test Test Name Order Date GI BIOPSY 01/09/2017 Future Test Test Name Order Date COLONOSCOPY 11/02/2016 Insurance Providers Payer Name Payer Address Payer Phone Subscriber Number Group Number Insured Name Patient Relationship to Insured Coverage Start Date Coverage End Date MEDICARE OF [place] [address] [place] [phone] [id number] ANAHI JANSEN Self - patient is the insured [facility] SUPPLEMENTAL PLAN [address] [place] [address] [phone] [id number] ANAHI JANSEN Self - patient is the insured Medical (General) History Medical History History ICD Code EGD 07-15-2011--WNL except mi nimal HH--bx neg for Chandler's and negative for eosinophilic esophagitis Tubular adenoma removed in --negative colonoscopy in 06/2011 exept for diverticulosis and internal hemorrhoids---negative colonoscopies prior to [address] Srinivasa Bailey [place],DM,CVA,Lung disease,renal dise ase Hypertension Hyperlipidemia Receives Botox injections in her neck fo r muscle spasms--Dr. Smith
== END 2025-09-16 13:05 | disposition home or self-care (01) ==
LOC: HO.HCS 12:31
PROVIDERS: PCP Internal Medicine; Visit Provider Internal Medicine
DX: I25.5 Ischemic cardiomyopathy (principal); I48.0 Paroxysmal atrial fibrillation
CPT/HCPCS: 93010; 99214; G2211

== ENCOUNTER → 2025-09-16 12:31 | Outpatient (BNVA) | payer MEDICARE, SELFPAY ==
[2022-05-04 12:53] VITALS: BP 108/62; BP 132/70; BMI 23.3
== END ==
PROVIDERS: PCP Internal Medicine; Visit Provider Internal Medicine
DX: I42.2 Other hypertrophic cardiomyopathy (principal); I25.5 Ischemic cardiomyopathy; I25.10 Atherosclerotic heart disease of native coronary artery without angina pectoris; I10 Essential (primary) hypertension; I48.0 Paroxysmal atrial fibrillation
CPT/HCPCS: 93005; 99212

== ENCOUNTER 2025-10-21 14:02 | Outpatient (AMB) | payer MEDICARE, SELFPAY ==
[2022-05-04 12:53] VITALS: BP 108/62; BP 132/70; BMI 23.3
--- NOTE | 2025-10-21 14:11 | MHC.PC.OV ---
Vital Signs 10/21/25 14:12 Height 5 ft 2 in Weight 124 lb BMI 22.7 BP 162/88 H Blood Pressure Location Lt brachial Position Sitting Pulse 89 Pulse Source Pulse Oximeter Pulse Oximetry (%) 96 Oxygen Delivery Method Room Air Intake Visit Reasons: Chf, A fib Allergies atorvastatin (Lipitor) Allergy (Unknown, Verified 10/21/25 14:12) Unknown lovastatin Allergy (Unknown, Verified 10/21/25 14:12) Unknown pneumococcal vaccine Allergy (Unknown, Verified 10/21/25 14:12) Unknown pravastatin Allergy (Unknown, Verified 10/21/25 14:12) Unknown sertraline Adverse Reaction (Intermediate, Verified 10/21/25 14:12) sweaty Medication List - Last Reconciled 10/21/25 by Liborio Cast MD albuterol sulfate 90 mcg/actuation (Ventolin HFA) 2 puffs inhalation Q6H PRN apixaban (Eliquis) 5 mg PO BID calcium carbonate (Calcium 500) 500 mg PO DAILY@1200 cholecalciferol (vitamin D3) 10 mcg PO DAILY@1200 ezetimibe 10 mg PO DAILY 90 days famotidine 20 mg PO BEDTIME ipratropium bromide 2 sprays intranasal QID lisinopril 2.5 mg PO DAILY Held on 07/10/25. Instructions: Doctor's Order metoprolol succinate ER 50 mg PO DAILY multivitamin 1 tab PO DAILY@1200 ondansetron 4 mg PO Q8H PRN rosuvastatin 20 mg PO BEDTIME spironolactone 12.5 mg (1/2 x 25 mg) PO DAILY torsemide 20 mg PO DAILY PRN Tobacco use date assessed: 05/12/25 Fall risk assessment: No Falls in past year Last assessed Fall Risk: 10/21/25 Dental Screening Dental Screen Date: 05/12/25 HPI HPI Comments History of Present Illness Details History of Present Illness The patient is an 85-year-old female presenting for a follow-up visit for management of multiple chronic medical conditions. She has a history of ischemic cardiomyopathy, and a recent echocardiogram showed an improved ejection fraction of 40-45%, up from a prior 30-35%. She currently denies symptoms of congestive heart failure. Her cardiac history also includes coronary artery disease, hypertension, hypercholesterolemia, and atrial fibrillation, for which she takes Eliquis. Her regimen for heart failure and hypertension includes metoprolol, lisinopril, and spironolactone, though she was unable to take Entresto and Farxiga due to cost. She takes Zetia and rosuvastatin for her cholesterol. Her history is also significant for COPD, which was noted on a stable chest X-ray in June. She has an albuterol inhaler for as-needed use but has not used it in a while, reporting that it induces a cough. Other chronic conditions include GERD, generalized anxiety disorder, and depression. Review of prior labs from April reveals mild anemia and mild hyponatremia with a BNP of 670, but normal renal function, blood sugar, vitamin B12, and thyroid levels. Her health maintenance history includes osteopenia diagnosed after a bone density scan in March 2021, a last colonoscopy in 2016, and a last mammogram in January 2022. She has received shingles, tetanus, flu, and COVID-19 vaccinations but had a prior reaction to a pneumonia shot. Health Maintenance A repeat bone density scan will be ordered to follow up on her osteopenia. The patient was advised to maintain adequate hydration and physical activity. A form for a handicap placard will be completed for the patient's . The patient was counseled to avoid commercial electrolyte solutions due to potential interactions with her medications. 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 - Level of Activity: She reports being very busy with caregiving tasks, including washing, dressing, and assisting her with transfers. - Housing and Support: The patient lives at home with her and previously had a home health aide for six weeks but found it to be too expensive. Results - Labs (from April 2021): - CBC: Mild anemia noted. - BMP: Mild hyponatremia, normal renal function. - Glucose: 102. - BNP: 670. - Vitamin B12: Normal. - TSH: Normal. - Imaging and Procedures: - Echocardiogram: Ejection fraction of 40-45%, an improvement from a previous 30-35%. - Chest X-ray (June): Showed COPD, otherwise stable. - Bone Density Scan (March 2021): Revealed osteopenia. - Mammogram (January 2022): Completed. - Colonoscopy (2016): Completed. [facility] Medical History Bilateral hand numbness Breast cancer screening by mammogram Nonrheumatic mitral valve regurgitation PAF (paroxysmal atrial fibrillation) Ischemic cardiomyopathy Atherosclerotic cardiovascular disease Congestive heart failure Overweight (BMI 25.0-29.9) Thyroid nodule Hemorrhoids Diverticulosis Hypercholesterolemia Hypertension Surgical History History of cardiac catheterization (~10/18/21) History of colonoscopy History of cataract surgery History of surgery Family History Father Hypertension Stroke CVD (cardiovascular disease) Mother Hypertension Stroke Social History Household Members: Spouse Housing: House Alcohol intake: current Alcohol intake frequency: a few times a week Alcohol type: wine Patient Tobacco Use Status: Former Tobacco user Tobacco use type: Cigarette e-Cigarette/Vaping Use: Never Used Second Hand Smoke Exposure: Yes service: No Current occupational status: retired Current occupation: right hand dominant Cognitive needs: No Hearing needs: No Vision needs: Yes (Glasses) Questionnaire Thrive Questionnaire Date Thrive assessed: 05/12/25 I am a: Parent/Caregiver What is your living situation today?: I have a steady place to live Within the past 12 months, did the food you bought not last and you didn't have the money to get more?: Never true Within the past 12 months, did you worry whether your food would run out before you got money to buy more?: Never true Do you have trouble paying for medicines?: I choose not to answer this question Do you have trouble getting transportation to medical appointments?: No Do you have trouble paying your heating and electricity bill?: No Do you have trouble taking care of your child, family member or friend?: I choose not to answer this question Do you have trouble with day-to-day activities such as bathing, preparing meals, shopping, managing finances, etc.?: No Are you currently unemployed and looking for a job?: No Are you interested in more education?: No Currently or been in a relationship where the following occur: No concerns reported THRIVE Score: 0 TIMMY-7 AMB Questionnaire TIMMY-7 Date TIMMY - 7 assessed: 11/22/24 Source: Developed by Jenny Clark.W. Ronnie, Santosh Meadows and colleagues, with an educational hiren from [employer]. Review of Systems Narrative Review of Systems - Cardiovascular: Denies symptoms of congestive heart failure. - Respiratory: Denies wheezing and frequent coughing. - Allergic/Immunologic: Reports that use of her albuterol inhaler induces coughing. Physical exam (Primary Care) Vital Signs: Last Vital Signs Pulse 89 10/21/25 14:12 BP 162/88 H 10/21/25 14:12 Pulse Ox 96 10/21/25 14:12 Oxygen Delivery Method Room Air 10/21/25 14:12 BMI result Body Mass Index 22.7 Tobacco/Smoking Status: Tobacco use Status Tobacco use date assessed 05/12/25 10/21/25 14:14 Patient Tobacco Use Status Former Tobacco user 10/21/25 14:14 Tobacco use type Cigarette 10/21/25 14:14 e-Cigarette/Vaping Use Never Used 10/21/25 14:14 Thrive Assessment: Date of Thrive Assessment Date Thrive assessed 05/12/25 10/21/25 14:14 Currently or been in a relationship where the following occur: No concerns reported Narrative Physical Exam Const General: alert; No acute distress Eyes Conjunctivae: conjunctivae normal Resp Auscultation: clear to auscultation bilaterally Cardio Rate: regular rate Rhythm: regular rhythm GI Inspection: Yes normal to inspection Extrem General: Yes normal to inspection and No edema Coding Level of Care Code Est Pt Level 4 (65082) Add On Problem Visit Only Diagnoses Acute on chronic congestive heart failure, unspecified heart failure type I50.9 Heart failure chronicity: acute on chronic Heart failure type: unspecified Essential hypertension I10 Hypertension type: essential hypertension Ischemic cardiomyopathy I25.5 Coronary artery disease involving morongo coronary artery of morongo heart without angina pectoris I25.10 Associated angina: without angina Coronary Disease-Associated Artery/Lesion type: morongo artery [place] vs. transplanted heart: morongo heart PAF (paroxysmal atrial fibrillation) I48.0 Hypercholesterolemia E78.00 Osteopenia M85.80 Gastroesophageal reflux disease without esophagitis K21.9 Esophagitis presence: without esophagitis COPD (chronic obstructive pulmonary disease) J44.9 Generalized anxiety disorder F41.1 Assessment & Plan Assessment & Plan (1) Congestive heart failure: Comment: Congestive heart failure with reduced ejection fraction Code(s): I50.9 - Heart failure, unspecified Category: Medical Qualifiers: Heart failure chronicity: acute on chronic Heart failure type: unspecified Qualified Code(s): I50.9 - Heart failure, unspecified Plan: Patient has been follow-up with cardiology diuretics taken twice a day week/prn weigh daily (2) Hypertension: Code(s): I10 - Essential (primary) hypertension Category: Medical Qualifiers: Hypertension type: essential hypertension Qualified Code(s): I10 - Essential (primary) hypertension Plan: Continue with blood pressure medication. Decrease salt intake and exercise on lisinopril 2.5 mg once a day metoprolol 50 mg once a day and spironolactone 12.5 mg once a day. BP at home (3) Ischemic cardiomyopathy: Code(s): I25.5 - Ischemic cardiomyopathy Category: Medical Plan: Patient is not able to get Entresto/as well as Farxiga. Continuing with diuretics beta rubén and [place] inhibitor (4) Coronary artery disease: Code(s): I25.10 - Atherosclerotic heart disease of morongo coronary artery without angina pectoris Category: Medical Qualifiers: Associated angina: without angina Coronary Disease-Associated Artery/Lesion type: morongo artery [place] vs. transplanted heart: morongo heart Qualified Code(s): I25.10 - Atherosclerotic heart disease of morongo coronary artery without angina pectoris Plan: Control the cholesterol, weight, blood pressure, patient on anticoagulation with Eliquis (5) PAF (paroxysmal atrial fibrillation): Code(s): I48.0 - Paroxysmal atrial fibrillation Category: Medical (6) Hypercholesterolemia: Code(s): E78.00 - Pure hypercholesterolemia, unspecified Category: Medical Plan: Avoid fried foods, chicken skin, eggs, butter margarine, pastries and meat. Be it pork or beef they have a lot of cholesterol Zetia and rosuvastatin, will continue to monitor (7) Osteopenia: Comment: Bone density 03/2021 osteopenia Code(s): M85.80 - Other specified disorders of bone density and structure, unspecified site Category: Medical Plan: Discussed about repeat bone density (8) GERD (gastroesophageal reflux disease): Code(s): K21.9 - Gastro-esophageal reflux disease without esophagitis Category: Medical Qualifiers: Esophagitis presence: without esophagitis Qualified Code(s): K21.9 - Gastro-esophageal reflux disease without esophagitis Plan: Avoid the foods that causes that usually spicy foods, tomato products, juices, coffee, soda and foods that your sensitive to. After eating do not lie down, allow 3-4 hours before in lie down. And keep the head of bed above 30 degrees to avoid the acid from going up. (9) COPD (chronic obstructive pulmonary disease): Comment: 06/2025 Code(s): J44.9 - Chronic obstructive pulmonary disease, unspecified Category: Medical Plan: Patient has albuterol as needed (10) Generalized anxiety disorder: Code(s): F41.1 - Generalized anxiety disorder Category: Medical Plan: Stable Plan Plan Patient was informed and verbally consented to the use of an ambient scribe for clinic note documentation during this visit. 1. Ischemic Cardiomyopathy And Heart Failure The patient's ejection fraction has improved to 40-45%, and she is asymptomatic for congestive heart failure. She will continue her current guideline-directed medical therapy with metoprolol 50 mg daily, lisinopril 2.5 mg daily, and spironolactone 12.5 mg daily. Due to prohibitive costs, she is unable to take Entresto and Farxiga. A fasting blood draw has been ordered to monitor electrolytes given her use of spironolactone. 2. Hypertension The patient's blood pressure is well controlled on her current medication regimen, with home readings around 127/53 mmHg. She will continue her current dosages of lisinopril, metoprolol, and spironolactone. 3. Atrial Fibrillation The patient will continue anticoagulation with Eliquis. Kidney function will be monitored, as it is important for her use of blood thinners. 4. Hypercholesterolemia Continue current treatment with Zetia and rosuvastatin, with ongoing monitoring. 5. Chronic Obstructive Pulmonary Disease The patient's COPD is stable, and she denies frequent coughing or wheezing. She will continue to use her albuterol inhaler as needed for significant coughing. Discussion Notes I discussed with the patient that her heart strength has shown some improvement on the latest echocardiogram, but her heart is still considered weak. We reviewed her blood pressure log, and I am satisfied with her current control, so we will continue her regimen of lisinopril, metoprolol, and spironolactone. I explained that while other medications like Entresto and Farxiga are known to be beneficial, we cannot prescribe them at this time due to insurance and cost issues. I have ordered a fasting blood test to check her electrolytes, explaining that this is a routine check because of the spironolactone she is taking. We discussed her COPD, and I clarified that the albuterol inhaler is for as-needed use during episodes of significant coughing. I also advised her to be cautious with [id number] electrolyte solutions, as they could cause her potassium or calcium levels to rise to unsafe levels given her medications. We discussed health maintenance, including the plan to arrange a repeat bone density scan. I instructed her on how to obtain a handicap placard form for her at checkout, which I will then complete. I stressed the importance of staying hydrated with water and keeping active, acknowledging the current demands on her as a caregiver. Patient Instructions - Continue taking all your medications for your heart, blood pressure, and cholesterol as prescribed. - Please go for a fasting blood test sometime in the next month. The order has already been sent to the lab. - Continue to drink plenty of water and stay as active as possible. - Only use your albuterol inhaler if you are having a lot of cough. - We will schedule you for a repeat bone density scan. - Ask the medical front desk coordinator at checkout for a handicapped placard form. Fill out your part, and they will give it to me to finish. - Avoid drinking sports drinks or electrolyte solutions, as they can interfere with your medications. - Be careful and stay safe, as it is currently flu season. Orders: Orders NT Pro B Type Natriuretic Pept Today E78.00 - Pure hypercholesterolemia, unspecified, F41.1 - Generalized anxiety disorder, I10 - Essential (primary) hypertension, I25.10 - Atherosclerotic heart disease of morongo coronary artery without angina pectoris, I25.5 - Ischemic cardiomyopathy, I48.0 - Paroxysmal atrial fibrillation, I50.9 - Heart failure, unspecified, J44.9 - Chronic obstructive pulmonary disease, unspecified, K21.9 - Gastro-esophageal reflux disease without esophagitis, M85.80 - Other specified disorders of bone density and structure, unspecified site Magnesium Today I50.9 - Heart failure, unspecified
[2025-10-21 14:12] VITALS: BP 162/88; PULSE 89; O2SAT 96; BMI 22.7
--- OUTSIDE RECORDS SUMMARY | 2025-10-21 17:53 | XMS_ITS | Patient Health Record ---
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 Name Role Phone Liborio Cast MD Primary Care Provider Luis Hernandez [phone] Reason For Referral No Information Medications Medication [...] Problem Screening for malignant neoplasm of colon (313564759) Encounter for screening for malignant neoplasm of colon (Z12.11) Active confirmed Problem History of adenomatous polyp of colon (896599818) History of adenomatous polyp of colon (Z86.010) Active confirmed Problem Hypertension (75639752) Hypertension (I10) Active confirmed Problem Screening for malignant neoplasm of rectum (730316342) Encounter for screening for malignant neoplasm of rectum (Z12.12) Active confirmed Problem Preprocedural examination (492422954252721) Preprocedural examination (Z01.818) Active confirmed Problem Family History of Cancer of Colon (Situation) (419529302) Family history of colon cancer (Z80.0) Active confirmed Problem Long-term current use of antiplatelet drug (998509983892413) Long-term use of aspirin therapy (Z79.82) Active confirmed Problem Irregular bowel habits (591866367) Irregular bowel habits (R19.8) Active confirmed Plan Of Treatment Pending Test Test Name Order Date GI BIOPSY 01/09/2017 Future Test Test Name Order Date COLONOSCOPY 11/02/2016 Insurance Providers Payer Name Payer Address Payer Phone Subscriber Number Group Number Insured Name Patient Relationship to Insured Coverage Start Date Coverage End Date MEDICARE OF [place] [address] [place] [id number] ANAHI JANSEN Self - patient is the insured [facility] SUPPLEMENTAL PLAN [address] [place] [address] [phone] [id number] ANAHI JANSEN Self - patient is the insured Medical (General) History Medical History History ICD Code EGD 07-15-2011--WNL except mi nimal HH--bx neg for Chandler's and negative for eosinophilic esophagitis Tubular adenoma removed in --negative colonoscopy in 06/2011 exept for diverticulosis and internal hemorrhoids---negative colonoscopies prior to [address] Srinivasa Bailey [place],DM,CVA,Lung disease,renal dise ase Hypertension Hyperlipidemia Receives Botox injections in her neck fo r muscle spasms--Dr. Smith
== END 2025-10-21 14:37 | disposition home or self-care (01) ==
LOC: HO.HMCH 14:03
PROVIDERS: PCP Internal Medicine; Visit Provider Internal Medicine
DX: I48.0 Paroxysmal atrial fibrillation (principal); I50.9 Heart failure, unspecified; J44.9 Chronic obstructive pulmonary disease, unspecified; I10 Essential (primary) hypertension; I25.5 Ischemic cardiomyopathy; I25.10 Atherosclerotic heart disease of native coronary artery without angina pectoris; E78.00 Pure hypercholesterolemia, unspecified; M85.80 Other specified disorders of bone density and structure, unspecified site; K21.9 Gastro-esophageal reflux disease without esophagitis; F41.1 Generalized anxiety disorder

== ENCOUNTER → 2025-10-21 14:02 | Outpatient (BNVA) | payer MEDICARE, SELFPAY ==
[2022-05-04 12:53] VITALS: BP 108/62; BP 132/70; BMI 23.3
== END ==
PROVIDERS: PCP Internal Medicine; Visit Provider Internal Medicine
DX: I25.5 Ischemic cardiomyopathy (principal); I51.9 Heart disease, unspecified; I10 Essential (primary) hypertension; K21.9 Gastro-esophageal reflux disease without esophagitis; I48.0 Paroxysmal atrial fibrillation; E78.00 Pure hypercholesterolemia, unspecified; J44.9 Chronic obstructive pulmonary disease, unspecified; F41.1 Generalized anxiety disorder; I25.10 Atherosclerotic heart disease of native coronary artery without angina pectoris; M85.80 Other specified disorders of bone density and structure, unspecified site; Z79.01 Long term (current) use of anticoagulants; Z87.891 Personal history of nicotine dependence; Z79.899 Other long term (current) drug therapy
CPT/HCPCS: 99212